=== PATIENT | female | born 1940 | race Caucasian/White ===

== ENCOUNTER 2022-04-26 13:58 | Outpatient (REF) | payer MEDICARE, SELFPAY ==
--- NOTE | 2022-04-26 14:06 | ECG_ITS ---
Test Reason : Z13.9 Blood Pressure : / mmHG Vent. Rate : 120 BPM Atrial Rate : 120 BPM P-R Int : 160 ms QRS Dur : 072 ms QT Int : 316 ms P-R-T Axes : 082 058 072 degrees QTc Int : 446 ms Sinus tachycardia Biatrial enlargement Abnormal ECG When compared with ECG of 19-OCT-2005 16:17, Biatrial enlargement is now Present Heart rate has increased Referred By: Raz Martell Electronically Signed By:OLIVIA CHAVEZ
[2022-04-26 15:53] LABS: Thyroid Stimulating Hormone 1.21 uIU/mL (0.32-4.0)
[2022-04-26 16:26] LABS: Folate > 20.0 ng/mL (> or = 4.0); Vitamin B12 654 pg/mL (200-900)
== END 2022-04-26 13:59 | disposition home or self-care (01) ==
LOC: HO.LAB 13:58
PROVIDERS: PCP Internal Medicine; Visit Provider Internal Medicine
DX: E03.9 Hypothyroidism, unspecified (principal); R41.89 Other symptoms and signs involving cognitive functions and awareness; R00.0 Tachycardia, unspecified
CPT/HCPCS: 36415; 82607; 82746; 84443; 93005

== ENCOUNTER 2022-05-11 13:08 | Outpatient (REF) | payer MEDICARE, SELFPAY ==
--- NOTE | ~2022-05-11 | CT_ITS ---
EXAMINATION: CT HEAD WITHOUT CONTRAST CLINICAL INFORMATION: Other symptoms and signs involving cognitive function and awareness COMPARISON: None TECHNIQUE: Contiguous axial imaging was performed from the skull base to vertex without intravenous administration of contrast. This CT examination was performed using dose optimization techniques as appropriate, variously including the following: *Automated exposure control *Adjustment of mA and/or kV according to patient size (this includes techniques or standardized protocols for targeted exams where dose is matched to indication/reason for exam; i.e. extremities or head) *Use of iterative reconstruction technique DLP: 644 mGy-cm FINDINGS: There is no evidence of an extra-axial collection. There is no evidence of intra-axial or extra-axial hemorrhage. Ventricles and extra-axial CSF spaces are prominent suggestive of mild generalized atrophy. There is nonspecific periventricular white matter disease. No mass, mass effect or infarct is seen. Review of bone windows is normal. No skull fracture. Visualized paranasal sinuses, mastoid air cells and middle ears are clear. CT/CT head/brain wo IV con IMPRESSION: No acute findings. Mild generalized atrophy and nonspecific periventricular white matter disease.
== END 2022-05-11 13:09 | disposition home or self-care (01) ==
LOC: HO.CT 13:08
PROVIDERS: PCP Internal Medicine; Visit Provider Internal Medicine
DX: R41.89 Other symptoms and signs involving cognitive functions and awareness (principal); R90.82 White matter disease, unspecified; G31.89 Other specified degenerative diseases of nervous system
CPT/HCPCS: 70450

== ENCOUNTER 2022-06-25 10:28 | Inpatient (IN) | payer MEDICARE, SELFPAY ==
--- NOTE | ~2022-06-25 | CT_ITS ---
EXAMINATION: CT BRAIN AND CT CERVICAL SPINE WITHOUT CONTRAST. CLINICAL INFORMATION: Fall, head strike. COMPARISON: None TECHNIQUE: 5 mm thin axial and reformatted 2 mm thin sagittal and coronal images of brain were obtained. Subsequently axial 3 mm thin and reformatted 2 mm thin sagittal and coronal images of cervical spine were obtained. DLP [id number]. FINDINGS: Brain: There is no acute intra-axial, extra-axial bleed, masses or midline shift. There is no acute infarction in evolution. There is no edema. There is diffuse periventricular hypodensity in both cerebral hemispheres without mass effect. The lateral ventricles are symmetrical in size but enlarged. Bone windows reveal no calvarial abnormality. There is no scalp soft tissue abnormality. Bilateral paranasal sinuses and mastoid air cells are well-aerated. Cervical spine: There is normal cervical lordosis. The vertebral heights and alignment is normal. There is loss of C5-C6 disc height with mild ventral and posterior spondylosis. Minimal spondylosis seen at the C3 3-4 disc level as well. The craniovertebral junction and C1-C2 alignment is normal. There is no visible acute fracture, dislocation or subluxation seen. The prevertebral and paravertebral soft tissues are normal. The airway is widely patent. There is bilateral apical pleural thickening and parenchymal scarring. CT/CT head/brain wo IV con IMPRESSION: No acute intracranial process seen. No acute fracture, dislocation or subluxation cervical spine. There are degenerative disc changes with spondylosis C5-C6 disc level.
--- NOTE | ~2022-06-25 | XR_ITS ---
EXAMINATION: CHEST. LEFT HIP AND AP PELVIS. CLINICAL INFORMATION: Cough COMPARISON: None TECHNIQUE: Chest one view. Left hip and AP pelvis 3 views. FINDINGS: Chest: Both lungs are well-inflated but clear of acute process. Heart size and pulmonary vascularity is normal. No gross bony abnormality seen. AP pelvis and left hip: There is an impacted fracture with foreshortening left femoral neck. There is no dislocation. The right hip joint is normal. There is normal symmetry of SI joints. As the pelvic bones are normal. There is large amount of stool in colon. XR/XR chest 1V IMPRESSION: Slightly impacted fracture with foreshortening of left femoral neck. There is no dislocation. The right hip and rest of the pelvis is normal. Significant constipation.
--- NOTE | ~2022-06-25 | XR_ITS ---
EXAMINATION: XR PELVIS CLINICAL INFORMATION: Left hip hemiarthroplasty COMPARISON: Previous x-ray 06/25/2022 TECHNIQUE: AP view of the pelvis. FINDINGS: There is a new left hip hemiarthroplasty in satisfactory position. No fracture or dislocation. Bones of the pelvis are unremarkable. There is constipation. Postoperative changes to the soft tissues. XR/XR pelvis 1-2V IMPRESSION: Satisfactory appearance of left hip hemiarthroplasty.
--- NOTE | ~2022-06-25 | CT_ITS ---
EXAMINATION: CT BRAIN AND CT CERVICAL SPINE WITHOUT CONTRAST. CLINICAL INFORMATION: Fall, head strike. COMPARISON: None TECHNIQUE: 5 mm thin axial and reformatted 2 mm thin sagittal and coronal images of brain were obtained. Subsequently axial 3 mm thin and reformatted 2 mm thin sagittal and coronal images of cervical spine were obtained. DLP 854. FINDINGS: Brain: There is no acute intra-axial, extra-axial bleed, masses or midline shift. There is no acute infarction in evolution. There is no edema. There is diffuse periventricular hypodensity in both cerebral hemispheres without mass effect. The lateral ventricles are symmetrical in size but enlarged. Bone windows reveal no calvarial abnormality. There is no scalp soft tissue abnormality. Bilateral paranasal sinuses and mastoid air cells are well-aerated. Cervical spine: There is normal cervical lordosis. The vertebral heights and alignment is normal. There is loss of C5-C6 disc height with mild ventral and posterior spondylosis. Minimal spondylosis seen at the C3 3-4 disc level as well. The craniovertebral junction and C1-C2 alignment is normal. There is no visible acute fracture, dislocation or subluxation seen. The prevertebral and paravertebral soft tissues are normal. The airway is widely patent. There is bilateral apical pleural thickening and parenchymal scarring. CT/CT cervical spine wo IV con IMPRESSION: No acute intracranial process seen. No acute fracture, dislocation or subluxation cervical spine. There are degenerative disc changes with spondylosis C5-C6 disc level.
--- NOTE | ~2022-06-25 | XR_ITS ---
EXAMINATION: CHEST. LEFT HIP AND AP PELVIS. CLINICAL INFORMATION: Cough COMPARISON: None TECHNIQUE: Chest one view. Left hip and AP pelvis 3 views. FINDINGS: Chest: Both lungs are well-inflated but clear of acute process. Heart size and pulmonary vascularity is normal. No gross bony abnormality seen. AP pelvis and left hip: There is an impacted fracture with foreshortening left femoral neck. There is no dislocation. The right hip joint is normal. There is normal symmetry of SI joints. As the pelvic bones are normal. There is large amount of stool in colon. XR/XR hip LT min 2V IMPRESSION: Slightly impacted fracture with foreshortening of left femoral neck. There is no dislocation. The right hip and rest of the pelvis is normal. Significant constipation.
--- NOTE | 2022-06-25 10:30 | ED.GENADULT ---
HPI - General Adult General Chief complaint: Fall Stated complaint: LT SIDE AND HIP PAIN S/P FALL,-COLLAR,-THINNERS Time Seen by Provider: 06/25/22 10:30 Source: patient, family and EMS Mode of arrival: EMS Limitations: other (mild dementia, information gathered w/ assistance from ) History of Present Illness HPI narrative: Pt is an 81 yo assigned female at presenting w/ left-sided hip pain after a fall this morning. She reports that she got up around 0815 this morning in a hurry to get to the bathroom when she bumped her left hip into her dresser and fell to the ground. She states that she was unable to get off the floor by herself. Her at bedside reports that he was able to help her up but was concerned that she was unable to respond to questions appropriately for approx 20 seconds following the incident. Pt states that she is unsure if she hit her head and endorsed mild pain in the area of the right orthodoxy. She denies use of anticoagulant medications. She reports that her primary concern at this time is the pain in her left hip due to which she is unable to ambulate. She points to the lateral hip as the area where most of the pain is located and denies radiation of pain or numbness/tingling to that extremity. Onset (ago): hour(s) (3) Location: lower extremity (left hip) Radiation: non-radiation Severity: mild Severity scale (1-10): 2 Quality: aching Pain Consistency: constant Relieving factors: none Exacerbating factors: movement Associated symptoms: denies other symptoms Treatments prior to arrival: none Related Data Home Medications Medication Instructions Recorded Confirmed donepezil 10 mg tablet 5 mg PO BEDTIME 06/25/22 06/25/22 Previous Rx's Medication Instructions Recorded hydrochlorothiazide 25 mg tablet 25 mg PO DAILY #90 tabs 09/23/21 amlodipine 10 mg tablet 10 mg PO DAILY #90 tabs 06/02/22 Allergies Allergy/AdvReac Type Severity Reaction Status Date / Time No Known Allergies Allergy Verified 04/26/22 13:05 Review of Systems Constitutional: Constitutional: Reports no additional constitutional complaints, Denies chills, Denies fever(s) and Denies headache(s) Eyes: Eyes: Reports no additional eye complaints, Denies blurry vision, Denies change in vision and Denies eye discharge ENT: Denies dizziness, Denies headache(s), Denies nasal trauma and Denies neck pain Cardiovascular: Cardiovascular: Reports no additional cardiovascular complaints, Denies chest pain, Denies lightheadedness, Denies Loss of Consciousness and Denies dyspnea Respiratory: Respiratory: Reports no additional respiratory complaints and Denies dyspnea Gastrointestinal: Gastrointestinal: Reports no additional gastrointestinal complaints and Denies abdominal pain Genitourinary: Genitourinary: Reports no additional female genitourinary complaints Musculoskeletal: Musculoskeletal: Reports no additional musculoskeletal complaints, Reports as per HPI (left hip pain), Denies neck pain, Denies numbness and Denies tingling Neurologic: Denies dizziness, Denies headache(s), Denies numbness and Denies tingling Psychiatric: Psychiatric: Reports no additional psychiatric complaints Endocrine: Endocrine: Reports no additional endocrine complaints Hematologic/Lymphatic: Hematologic/Lymphatic: Reports no additional hematologic/lymphatic complaints Allergic/Immunologic: Allergic/Immunologic: Reports no additional allergic/immunologic complaints [facility] Past Medical History Attestation statement: The following information was validated with the patient. Source: old records reviewed Medical History Hypertension Surgical History History of tonsillectomy History of total abdominal hysterectomy and bilateral salpingo-oophorectomy Family History Family History Father CAD (coronary artery disease) Mother No problems noted. Sister Breast cancer Maternal Grandmother No problems noted. Maternal Grandfather No problems noted. Paternal Grandmother No problems noted. Paternal Grandfather No problems noted. Social History Social History Housing: House Alcohol intake: never Patient Tobacco Use Status: Former Tobacco user Tobacco use type: Cigarette Smoked in Last 30 Days: No e-Cigarette/Vaping Use: Never Used Second Hand Smoke Exposure: No Use of substances other than those prescribed or required for medical reasons: No Advance Directives: Yes Advance Directives Information Provided: Yes Advance Directives on File: No service: No Current occupational status: retired Cognitive needs: No Hearing needs: No Vision needs: Yes (glasses) Physical Exam ED Vital Signs: Vital Signs - 24 hr 06/25/22 10:45 Temperature 97.9 F Pulse Rate 105 H Respiratory Rate 16 Blood Pressure 157/75 H Pulse Oximetry 97 Oxygen Delivery Method Room Air BMI result Body Mass Index 16.2 Const General: cooperative and comfortable Limitations: other limitations (mild dementia, info gathered w/ assistance from ) [facility] Head: Yes normal to inspection, Yes No palpable skull fracture present, Yes normocephalic, Yes atraumatic, No abrasion, No Swain's sign, No contusion, No hematoma, No laceration, No occipital foramen tenderness, No raccoon eyes and No Temporal artery tenderness present Ears: hearing grossly normal bilaterally and external ears normal (no discharge noted bilaterally) General nose exam: Normal external nose present Eyes General: appearance normal, both eyes and all related structures Conjunctivae: conjunctivae normal Pupils: Equal, round and reactive pupils present Neck Neck: Yes normal visual inspection and No tracheal deviation Chest Chest palpation & inspection: normal inspection of the chest, no crepitus and no tenderness Resp Effort & Inspection: normal respiratory effort, able to speak in complete sentences and not tachypneic Auscultation: clear to auscultation bilaterally, no crackles, no rales, no rhonchi, no wheezes, breath sounds present and lung sounds not diminished Percussion: no hyperresonance to percussion Cardio Rate: regular rate Rhythm: regular rhythm Heart sounds: S1 normal heart sound present and S2 normal heart sound present Peripheral pulses: Peripheral pulses 2+ throughout GI Inspection: Yes normal to inspection Palpation (GI): Soft to palpation, not firm, nontender, no guarding and not rigid Back/Spine/Pelvis Cervical Spine: No Cervical spine tenderness Thoracic/Lumbar Spine: thoracic and lumbar spine normal to inspection and No thoracic spinal tenderness Skin General skin exam: no rashes or lesions noted Neuro Cranial nerves: Yes Equal, round and reactive pupils present Extrem General: Yes normal to inspection and Yes no pedal edema Right upper extremity: normal to inspection Left upper extremity: normal to inspection Right lower extremity: normal to inspection and full ROM; no edema Left lower extremity: normal to inspection and hip/thigh Details: normal to inspection and tenderness (over lateral hio ); no swelling, no abrasions, no lacerations, no ecchymosis, no crepitus, no penetrating wound, no deformity and no unusual warmth; abnormal ROM (limited active ROM secondary to pain, passive ROM intake), no cyanosis and no edema Medications Administered Discontinued Medications Generic Name Dose Route Start Last Admin Trade Name Jermain PRN Reason Stop Dose Admin Fentanyl 25 mcg 06/25/22 11:58 06/25/22 12:20 Fentanyl Citrate/Pf 100 Mcg/2 Ml Vial IVPUSH 06/25/22 11:59 25 mcg ONCE ONE Administration Protocol Medical Decision Making MDM Narrative Medical decision making narrative: Patient is an 81 year old assigned female at with a history of HTN and dementia presenting to the emergency department today with left hip pain. Patient's physical exam showed pain with ROM of the left hip. Patient's blood work showed a slightly elevated WBC count but was otherwise unremarkable. Patient's head and C-Spine CTs showed no acute process. Patient's left hip x-ray showed an acute left hip fracture. I spoke to the orthopedic provider investigation specialist who recommended medical admission. I spoke to the hospitalist team who agreed to admission. I explained my physical exam findings as well as all test results to the patient, the patient's , and the patient's daughter. I answered all questions asked by the patient, the patient's , and the patient's daughter. Patient, the patient's , and the patient's daughter verbalized agreement and understanding with this treatment plan and admission. Medical Records Medical records reviewed: Yes I reviewed the patient's medical records. Lab Data Lab results reviewed: Yes I reviewed the patient's lab results. Result diagrams: 06/25/22 12:20 06/25/22 12:20 Labs: Lab Results 06/25/22 06/25/22 06/25/22 Range/Units 12:20 12:20 12:20 WBC 12.4 H (4.8-10.8) X10*3/uL RBC 3.86 L (4.20-5.50) X10*6/uL Hgb 10.5 L (12.0-16.0) g/dl Hct 31.4 L (37.0-47.0) % MCV 81.3 (80.0-98.0) fL MCH 27.2 (27.0-33.0) pg MCHC 33.4 (31.0-35.0) g/dl RDW 12.7 (11.0-16.0) % Plt Count 408 H (160-400) X10*3/uL MPV 11.3 (9.4-12.3) fL Immature Gran % (Auto) 0.6 H (0.0-0.4) % Neut % (Auto) 86.2 H (45-73) % Lymph % (Auto) 4.8 L (20-40) % Talbot % (Auto) 7.6 (2-11) % Eos % (Auto) 0.6 (0-4) % Baso % (Auto) 0.2 (0-2) % Lymph # (Auto) 0.6 L (1.2-4.9) X10*3/uL Talbot # (Auto) 1.0 (0.1-1.2) X10*3/uL Eos # (Auto) 0.1 (0.0-0.4) X10*3/uL Baso # (Auto) 0.0 (0.0-0.2) X10*3/uL Abs Immat Gran (auto) 0.07 H (0.00-0.03) X10*3/uL Absolute Neuts (auto) 10.7 H (2.0-8.3) x10*3/uL Absolute Nucleated RBC 0.000 (0.0-0.012) X10*3/uL Nucleated RBC % (auto) 0.0 (0.0-0.2) /100WBC PT 11.9 (10.0-13.1) SEC INR 1.0 (0.9-1.1) APTT 26.2 (26.0-36.4) SEC Sodium 136 (135-145) mmol/L Potassium 3.0 L (3.3-5.1) mmol/L Chloride 88 L (96-108) mmol/L Carbon Dioxide 29 (22-29) mmol/L Anion Gap 22 H (12-20) BUN 25 H (9-16) mg/dL Creatinine 1.06 (0.5-1.4) mg/dL Estim Creat Clear Calc 24.7 Estimated GFR 50 Random Glucose 111 (60-115) mg/dL Calcium 10.1 (8.4-10.2) mg/dL Total Bilirubin 0.4 (0.0-1.0) mg/dL AST 23 (5-31) U/L ALT 25 (0-31) U/L Alkaline Phosphatase 78 (39-117) U/L Total Protein 7.2 (6.5-8.0) g/dL Albumin 4.3 (3.5-5.0) g/dL COVID-19 (JULIUS) (Negative) COVID-19 Clin Com 06/25/22 Range/Units 12:40 WBC (4.8-10.8) X10*3/uL RBC (4.20-5.50) X10*6/uL Hgb (12.0-16.0) g/dl Hct (37.0-47.0) % MCV (80.0-98.0) fL MCH (27.0-33.0) pg MCHC (31.0-35.0) g/dl RDW (11.0-16.0) % Plt Count (160-400) X10*3/uL MPV (9.4-12.3) fL Immature Gran % (Auto) (0.0-0.4) % Neut % (Auto) (45-73) % Lymph % (Auto) (20-40) % Talbot % (Auto) (2-11) % Eos % (Auto) (0-4) % Baso % (Auto) (0-2) % Lymph # (Auto) (1.2-4.9) X10*3/uL Talbot # (Auto) (0.1-1.2) X10*3/uL Eos # (Auto) (0.0-0.4) X10*3/uL Baso # (Auto) (0.0-0.2) X10*3/uL Abs Immat Gran (auto) (0.00-0.03) X10*3/uL Absolute Neuts (auto) (2.0-8.3) x10*3/uL Absolute Nucleated RBC (0.0-0.012) X10*3/uL Nucleated RBC % (auto) (0.0-0.2) /100WBC PT (10.0-13.1) SEC INR (0.9-1.1) APTT (26.0-36.4) SEC Sodium (135-145) mmol/L Potassium (3.3-5.1) mmol/L Chloride (96-108) mmol/L Carbon Dioxide (22-29) mmol/L Anion Gap (12-20) BUN (9-16) mg/dL Creatinine (0.5-1.4) mg/dL Estim Creat Clear Calc Estimated GFR Random Glucose (60-115) mg/dL Calcium (8.4-10.2) mg/dL Total Bilirubin (0.0-1.0) mg/dL AST (5-31) U/L ALT (0-31) U/L Alkaline Phosphatase (39-117) U/L Total Protein (6.5-8.0) g/dL Albumin (3.5-5.0) g/dL COVID-19 (JULIUS) Negative (Negative) COVID-19 Clin Com See Note Imaging Data Left hip x-ray: Attestation: I personally reviewed and interpreted this imaging study as follows: My impression: No acute process. Radiologist's impression: EXAMINATION: CHEST. LEFT HIP AND AP PELVIS. CLINICAL INFORMATION: Cough? COMPARISON: None? TECHNIQUE: Chest one view. Left hip and AP pelvis 3 views.? FINDINGS: Chest: Both lungs are well-inflated but clear of acute process. Heart size and pulmonary vascularity is normal. No gross bony abnormality seen. AP pelvis and left hip: There is an impacted fracture with foreshortening left femoral neck. There is no dislocation. The right hip joint is normal. There is normal symmetry of SI joints. As the pelvic bones are normal. There is large amount of stool in colon. XR/XR hip LT min 2V IMPRESSION: Slightly impacted fracture with foreshortening of left femoral neck. There is no dislocation. ? The right hip and rest of the pelvis is normal. ? Significant constipation. Dictated By: Michael Altamirano MD Signed By: Electronically signed by Michael Altamirano MD 06/25/22 6896 Chest x-ray: Attestation: I personally reviewed and interpreted this imaging study as follows: My impression: No acute process. Radiologist's impression: EXAMINATION: CHEST. LEFT HIP AND AP PELVIS. CLINICAL INFORMATION: Cough? COMPARISON: None? TECHNIQUE: Chest one view. Left hip and AP pelvis 3 views.? FINDINGS: Chest: Both lungs are well-inflated but clear of acute process. Heart size and pulmonary vascularity is normal. No gross bony abnormality seen. AP pelvis and left hip: There is an impacted fracture with foreshortening left femoral neck. There is no dislocation. The right hip joint is normal. There is normal symmetry of SI joints. As the pelvic bones are normal. There is large amount of stool in colon. XR/XR chest 1V IMPRESSION: Slightly impacted fracture with foreshortening of left femoral neck. There is no dislocation. ? The right hip and rest of the pelvis is normal. ? Significant constipation. Dictated By: Michael Altamiraon MD Signed By: Electronically signed by Michael Altamirano MD 06/25/[address] head and C-Spine: Attestation: I personally reviewed and interpreted this imaging study as follows: My impression: No acute process. Radiologist's impression: EXAMINATION: CT BRAIN AND CT CERVICAL SPINE WITHOUT CONTRAST. CLINICAL INFORMATION: Fall, head strike.? COMPARISON: None? TECHNIQUE: 5 mm thin axial and reformatted 2 mm thin sagittal and coronal images of brain were obtained. Subsequently axial 3 mm thin and reformatted 2 mm thin sagittal and coronal images of cervical spine were obtained. DLP 854. FINDINGS: Brain: There is no acute intra-axial, extra-axial bleed, masses or midline shift. There is no acute infarction in evolution. There is no edema. There is diffuse periventricular hypodensity in both cerebral hemispheres without mass effect. The lateral ventricles are symmetrical in size but enlarged. Bone windows reveal no calvarial abnormality. There is no scalp soft tissue abnormality. Bilateral paranasal sinuses and mastoid air cells are well-aerated. Cervical spine: There is normal cervical lordosis. The vertebral heights and alignment is normal. There is loss of C5-C6 disc height with mild ventral and posterior spondylosis. Minimal spondylosis seen at the C3 3-4 disc level as well. The craniovertebral junction and C1-C2 alignment is normal. There is no visible acute fracture, dislocation or subluxation seen. The prevertebral and paravertebral soft tissues are normal. The airway is widely patent. There is bilateral apical pleural thickening and parenchymal scarring. CT/CT head/brain wo IV con IMPRESSION: No acute intracranial process seen. ? No acute fracture, dislocation or subluxation cervical spine. There are degenerative disc changes with spondylosis C5-C6 disc level. Dictated By: Michael Alatmirano MD Signed By: Electronically signed by Michael Altamirano MD 06/25/22 2187 Discharge Plan Discharge Clinical Impression: Fracture of left hip Patient Disposition: Admitted As Inpatient
[2022-06-25 10:35] VITALS: BP 164/78; PULSE 102; O2SAT 99
[2022-06-25 10:45] VITALS: BP 157/75; PULSE 105; RESP 16; TEMP 36.6; O2SAT 97; BMI 16.2
--- NOTE | 2022-06-25 11:55 | PC.NURSE ---
ATTEMPT TO PLACE PATIENT ON FRACTURE HSU TO VOID, SHE IS UNABLE TO TOLERATE THE MOVEMENT OR PRESSURE OF THE HSU UNDER HER LEFT HIP. IV ACCESS GAINED.
[2022-06-25] MEDS: fentaNYL citrate/PF 100 MCG/2 ML VIAL 25 MCG IVPUSH (12:20)
[2022-06-25 12:25] LABS: MANUAL DIFF FLAG NO
[2022-06-25 12:27] LABS: Basophils Percent Auto 0.2 % (0-2); Eosinophils Absolute Auto 0.1 X10*3/uL (0.0-0.4); Eosinophils Percent Auto 0.6 % (0-4); Hematocrit 31.4 % (37.0-47.0); Hemoglobin 10.5 g/dl (12.0-16.0); Imm Gran Abs Auto 0.07 X10*3/uL (0.00-0.03); Imm Gran Pct Auto 0.6 % (0.0-0.4); Lymphocytes Absolute Auto 0.6 X10*3/uL (1.2-4.9); Lymphocytes Percent Auto 4.8 % (20-40); Mean Corpuscular HGB Conc 33.4 g/dl (31.0-35.0); Mean Corpuscular Hemoglobin 27.2 pg (27.0-33.0); Mean Corpuscular Volume 81.3 fL (80.0-98.0); Mean Platelet Volume 11.3 fL (9.4-12.3); Monocytes Percent Auto 7.6 % (2-11); Neutrophils Absolute Auto 10.7 x10*3/uL (2.0-8.3); Neutrophils Percent Auto 86.2 % (45-73); Platelet Count 408 X10*3/uL (160-400); Red Blood Count 3.86 X10*6/uL (4.20-5.50); Red Cell Distribution Width 12.7 % (11.0-16.0); White Blood Count 12.4 X10*3/uL (4.8-10.8)
[2022-06-25 12:32] LABS: Prothrombin Time 11.9 SEC (10.0-13.1)
[2022-06-25 12:35] LABS: Partial Thromboplastin Time 26.2 SEC (26.0-36.4)
--- NOTE | 2022-06-25 12:47 | P.HPHOSP_ITS ---
History of Present Illness Date of Service: 06/25/22 Chief Complaint: Hip pain 81-year-old woman presented to the ER after a fall in the bathroom. According to the patient's daughter she had a fall and may have hit her head on the side of the bathtub. She was unable to get up. EMS was called. She lives with her who is her primary caregiver, she does have dementia. Hip x-ray in the ER showed slightly impacted fracture of the left femoral neck with no dislocation. Potassium noted to be 3.0, blood pressure mildly elevated at 150 7/75 with tachycardia. She denied chest pain, shortness breath, nausea, vomiting, diarrhea. She will be admitted for further management and treatment of acute hip fracture. Review of Systems Review of Systems: Denies any recent fever chills or decrease in appetite respiratory denies any shortness of breath coverage production cardiovasculardenied chest pain gastrointestinal denies any dysphagia abdominal pain nausea vomiting or diarrhea genitourinary denies any dysuria frequency or hematuria musculoskeletal denies any joint pain or swelling neuropsych denies any weakness or seizures all other systems reviewed are negative [facility] Medical History Hypertension Family History (Updated 06/25/22 @ 14:32 by Hilaria Goldman NP) Father CAD (coronary artery disease) Mother No problems noted. Sister Breast cancer Maternal Grandmother No problems noted. Maternal Grandfather No problems noted. Paternal Grandmother No problems noted. Paternal Grandfather No problems noted. Surgical History History of tonsillectomy History of total abdominal hysterectomy and bilateral salpingo-oophorectomy Social History Housing: House Alcohol intake: never Patient Tobacco Use Status: Former Tobacco user Tobacco use type: Cigarette Smoked in Last 30 Days: No e-Cigarette/Vaping Use: Never Used Second Hand Smoke Exposure: No Use of substances other than those prescribed or required for medical reasons: No Advance Directives: Yes Advance Directives Information Provided: Yes Advance Directives on File: No service: No Current occupational status: retired Cognitive needs: No Hearing needs: No Vision needs: Yes (glasses) Meds Allergies Allergy/AdvReac Type Severity Reaction Status Date / Time No Known Allergies Allergy Verified 04/26/22 13:05 Active Medications: Current Medications Pharmacy Consult (Consult Rx Perform Med Rec) 1 each MISCELLANE ONCE PRN PRN Reason: Consult order Home Medications Medication Instructions Recorded Confirmed Last Taken Type donepezil 10 mg tablet 5 mg PO BEDTIME 06/25/22 06/25/22 06/24/22 History Physical Exam Vital Signs and Narrative: Vital Signs: Last Vital Signs Temp 97.9 F 06/25/22 10:45 Pulse 105 H 06/25/22 10:45 Resp 16 06/25/22 10:45 BP 157/75 H 06/25/22 10:45 Pulse Ox 97 06/25/22 10:45 O2 Del Method 06/25/22 10:45 BMI result Body Mass Index 16.2 Appearing in no acute distress head is normocephalic atraumatic eyes pupils are PERRLA sclera is anicteric mouth throat mucous membranes are intact and moist neck is supple no lymphadenopathy, no JVD noted lung sounds are clear to auscultation heart regular rate rhythm, clear S1, S2 positive bowel sounds, abdomen is soft, nontender neuro patient is alert x3, no focal deficits Results Labs CBC and Chem 7: 06/25/22 12:20 06/25/22 12:20 Labs: Laboratory Results - last 24 hr 06/25/22 06/25/22 12:20 12:20 MCV 81.3 MCH 27.2 MCHC 33.4 RDW 12.7 Plt Count 408 H MPV 11.3 Immature Gran % (Auto) 0.6 H Neut % (Auto) 86.2 H Lymph % (Auto) 4.8 L Hodgeman % (Auto) 7.6 Eos % (Auto) 0.6 Baso % (Auto) 0.2 Lymph # (Auto) 0.6 L Hodgeman # (Auto) 1.0 Eos # (Auto) 0.1 Baso # (Auto) 0.0 Abs Immat Gran (auto) 0.07 H Absolute Neuts (auto) 10.7 H Absolute Nucleated RBC 0.000 Nucleated RBC % (auto) 0.0 PT 11.9 INR 1.0 APTT 26.2 Imaging Radiologist's Impressions: Impressions Cervical Spine CT 06/25/22 11:15 IMPRESSION: No acute intracranial process seen. No acute fracture, dislocation or subluxation cervical spine. There are degenerative disc changes with spondylosis C5-C6 disc level. Head CT 06/25/22 11:15 IMPRESSION: No acute intracranial process seen. No acute fracture, dislocation or subluxation cervical spine. There are degenerative disc changes with spondylosis C5-C6 disc level. Chest X-Ray 06/25/22 12:17 IMPRESSION: Slightly impacted fracture with foreshortening of left femoral neck. There is no dislocation. The right hip and rest of the pelvis is normal. Significant constipation. Hip X-Ray 06/25/22 12:17 IMPRESSION: Slightly impacted fracture with foreshortening of left femoral neck. There is no dislocation. The right hip and rest of the pelvis is normal. Significant constipation. Assessment and Plan (1) Fracture of left hip: Status: Acute Plan 81 year old women admitted with Right hip fracture Left femoral neck fracture Orthopedic surgery consultation Pain management NPO after midnight monday night for surgery Monday Hypertension Continue home medications Monitor blood pressure closely Leukocytosis likely reactive, no infection Normocytic anemia no bleeding follow CBC DVT prophylaxis with pneumatic compression boots Attending Dr. Willis Full code Quality Stroke Does the patient have a stroke diagnosis?: No VTE Prior VTE?: No VTE Risk Level:: Medical - moderate - high VTE Device Contraindication: N/A - Device Ordered VTE Drug Contraindication: Treatment Not Indicated
[2022-06-25 13:11] LABS: COVID-19 Test Negative (Negative); IDNOW Serial# 55D5AD1C
--- NOTE | 2022-06-25 13:32 | PHA.MEDREC ---
Pharmacy Consult ? Medication Reconciliation Pharmacy has completed the medication reconciliation. Patient is not able to confirm medications but has med list on his phone and was able to review them with me and ensure that the list was accurate.
[2022-06-25 14:21] LABS: Alanine Aminotransferase 25 U/L (0-31); Albumin Level 4.3 g/dL (3.5-5.0); Alkaline Phosphatase 78 U/L (39-117); Anion Gap 22 (12-20); Aspartate Amino Transferase 23 U/L (5-31); Bilirubin Total 0.4 mg/dL (0.0-1.0); Blood Urea Nitrogen 25 mg/dL (9-16); Calcium 10.1 mg/dL (8.4-10.2); Carbon Dioxide 29 mmol/L (22-29); Chloride 88 mmol/L (96-108); Creatinine Clr Calc Pharmacy 24.7; Estimated Glomerular Filt Rate 50; Glucose Random 111 mg/dL (60-115); Sodium 136 mmol/L (135-145); Total Protein 7.2 g/dL (6.5-8.0)
[2022-06-25 15:34] VITALS: BP 163/67; PULSE 119; RESP 16; TEMP 36.8; O2SAT 96
[2022-06-25] MEDS: fentaNYL citrate/PF 100 MCG/2 ML VIAL 50 MCG IVPUSH (15:45)
[2022-06-25 16:02] LABS: Appearance Urine Clear; Color Urine Yellow; Glucose Urine UA 100 mg/dL (Negative); Leukocyte Esterase Urine Trace (Negative); Nitrite Urine Negative (Negative); Specific Gravity - Urine 1.015 (1.005-1.025); UMIC TRIGGER UA YES; Urine Blood Negative (Negative); Urine Ketones 40 mg/dL (Negative); Urine Protein 30 (1+) mg/dL (Neg-Trace)
[2022-06-25 16:06] LABS: Bacteria Urine None Seen (None Seen); Hyaline Casts Urine 0-2 /LPF (0-2); Squamous Epithelial Cell Urine 0-2 /HPF (0-2); WBC Urine 0-5 /HPF (0-5)
[2022-06-25] MEDS: Acetaminophen 325 MG TABLET 650 MG PO (16:51)
[2022-06-25] MEDS: 0.9 % Sodium Chloride Flush 3 ML SYRINGE IVFLUSH (16:52)
--- NOTE | 2022-06-25 17:31 | PM.CNOR ---
History of Present Illness HPI Consult date: 06/25/22 Chief complaint: hip fracture Narrative: 81-year-old woman presented to the ER after a fall in the bathroom earlier today.? According to the patient's daughter she had a fall and may have hit her head on the side of the bathtub.? She was unable to get up.? EMS was called.? She lives with her who is her primary caregiver, she does have dementia.?Daughter and Husabnd are at bedside today who states she does not use a walker or cane, but the does help her around when needed. Xrays obtained in the ED significant for mildly displaced femoral neck fracture on the left. Potassium noted to be 3.0, blood pressure mildly elevated at 150 7/75 with tachycardia.? She was admitted to the medical service for further evaluation and orthopedics was consulted for further recommendations. Review of Systems Review of Systems: Per [facility] Past Medical History Medical History Hypertension Family History Family History Father CAD (coronary artery disease) Mother No problems noted. Sister Breast cancer Maternal Grandmother No problems noted. Maternal Grandfather No problems noted. Paternal Grandmother No problems noted. Paternal Grandfather No problems noted. Surgical History Surgical History History of tonsillectomy History of total abdominal hysterectomy and bilateral salpingo-oophorectomy Social History Social History Housing: House Alcohol intake: never Patient Tobacco Use Status: Former Tobacco user Tobacco use type: Cigarette Smoked in Last 30 Days: No e-Cigarette/Vaping Use: Never Used Second Hand Smoke Exposure: No Use of substances other than those prescribed or required for medical reasons: No Advance Directives: Yes Advance Directives Information Provided: Yes Advance Directives on File: No service: No Current occupational status: retired Cognitive needs: No Hearing needs: No Vision needs: Yes (glasses) Meds Allergies Allergy/AdvReac Type Severity Reaction Status Date / Time No Known Allergies Allergy Verified 04/26/22 13:05 Active Medications: Current Medications Acetaminophen (Acetaminophen 325 Mg Tablet) 650 mg PO Q6H [facility] Last Admin: 06/25/22 16:51 Dose: 650 mg Acetaminophen (Acetaminophen 325 Mg Tablet) 650 mg PO Q6H PRN PRN Reason: Pain, Mild (Pain Scale 1-3) Amlodipine Besylate (Amlodipine Besylate 10 Mg Tablet) 10 mg PO DAILY [facility]; Protocol Donepezil HCl (Donepezil Hcl 5 Mg Tablet) 5 mg PO BEDTIME [facility] Hydrochlorothiazide (Hydrochlorothiazide 25 Mg Tablet) 25 mg PO DAILY [facility]; Protocol Morphine Sulfate (Morphine Sulfate 2 Mg/Ml Cartridge) 2 mg IVPUSH Q4H PRN; Protocol PRN Reason: Pain, Mild (Pain Scale 1-3) Oxycodone HCl (Oxycodone Hcl Immed Release 5 Mg Tablet) 5 mg PO Q6H PRN PRN Reason: Pain, Mild (Pain Scale 1-3) Pharmacy Consult (Consult Rx Perform Med Rec) 1 each MISCELLANE ONCE PRN PRN Reason: Consult order Sodium Chloride (0.9 % Sodium Chloride Flush 3 Ml Syringe) [facility] Last Admin: 06/25/22 16:52 Dose: 3 ml Home Medications Medication Instructions Recorded Confirmed Last Taken Type donepezil 10 mg tablet 5 mg PO BEDTIME 06/25/22 06/25/22 06/24/22 History Physical Exam Vital Signs: Vital Signs: Last Vital Signs Temp 98.3 F 06/25/22 15:34 Pulse 119 H 06/25/22 15:34 Resp 16 06/25/22 15:34 BP 163/67 H 06/25/22 15:34 Pulse Ox 96 06/25/22 15:34 O2 Del Method 06/25/22 15:34 BMI result Body Mass Index 16.2 Const: General: cooperative, healthy appearing and comfortable Extrem: Other: Left hip normal to inspection. No open wounds or lacerations. Left leg is externally rotated and shortened. Pain with Log roll, unable to SLR. She is able to dorsi flex and plantar flex. NVI. Results Labs Result Diagrams: 06/25/22 12:20 06/25/22 12:20 Labs: Abnormal lab results 06/25/22 06/25/22 06/25/22 Range/Units 12:20 12:20 15:51 WBC 12.4 H (4.8-10.8) X10*3/uL RBC 3.86 L (4.20-5.50) X10*6/uL Hgb 10.5 L (12.0-16.0) g/dl Hct 31.4 L (37.0-47.0) % Plt Count 408 H (160-400) X10*3/uL Immature Gran % (Auto) 0.6 H (0.0-0.4) % Neut % (Auto) 86.2 H (45-73) % Lymph % (Auto) 4.8 L (20-40) % Lymph # (Auto) 0.6 L (1.2-4.9) X10*3/uL Abs Immat Gran (auto) 0.07 H (0.00-0.03) X10*3/uL Absolute Neuts (auto) 10.7 H (2.0-8.3) x10*3/uL Potassium 3.0 L (3.3-5.1) mmol/L Chloride 88 L (96-108) mmol/L Anion Gap 22 H (12-20) BUN 25 H (9-16) mg/dL Urine Protein 30 (1+) H (Neg-Trace) mg/dL Urine Glucose (UA) 100 H (Negative) mg/dL Ur Leukocyte Esterase Trace H (Negative) Urine RBC 3-5 H (0-2) /HPF H & H 06/25/ Range/Units 12:20 Hgb 10.5 L (12.0-16.0) g/dl Hct 31.4 L (37.0-47.0) % Coagulation 06/25/22 Range/Units 12:20 INR 1.0 (0.9-1.1) All other labs normal. Diagnostic results Hip x-ray: image reviewed (Slightly impacted fracture with foreshortening of left femoral neck.) Assessment and Plan (1) Left displaced femoral neck fracture: Status: Acute Plan I discussed the case with Dr Fall and explained the extent of the injury to the patient, her , and her daughter Lizz, along with the options available which include surgical intervention. I explained the procedure in detail along with the length of recovery and rehab course. I explained the risk, benefits and alternatives. Risk including, but not limited to infection, blood clots, bleeding, non union or malunion and nerve/tissue damage to surrounding areas. I answered all their questions and with their understanding they have consented to move forward with Operative Fixation of the left hip . The patient will be T&S, med clearance obtained and NPO after midnight. HCP/: Vijay [phone] Cell Phone Procedures Date of Service Date of Service: 06/25/22
--- NOTE | 2022-06-25 17:41 | PC.NURSE ---
PT BECOMING MORE CONFUSED AND PULLING ON WIRES. HER FAMILY HAS LEFT THE BEDSIDE AND SHE REQUIRES FREQUENT RE-ORIENTATION
--- NOTE | 2022-06-25 17:48 | PC.NURSE ---
placed an [employer] Camera on pt.
--- NOTE | 2022-06-25 19:58 | PC.NURSE ---
Assumed care for pt. Pt alert not oriented. Breaths are even and unlabored. No apparent distress noted. Daughters at bedside aware of plan of care.
[2022-06-25] MEDS: Donepezil HCl 5 MG TABLET PO (21:02)
[2022-06-25] MEDS: Morphine Sulfate 2 MG/ML CARTRIDGE IVPUSH (22:46)
[2022-06-26] VITALS (13 sets, daily range): BP systolic 135–167; BP diastolic 66–80; PULSE 89–123; RESP 13–20; TEMP 36.5–38.1; O2SAT 93–100; BMI 16.2
--- NOTE | 2022-06-26 | ECG_ITS ---
Test Reason : TACHY Blood Pressure : / mmHG Vent. Rate : 114 BPM Atrial Rate : 114 BPM P-R Int : 170 ms QRS Dur : 076 ms QT Int : 332 ms P-R-T Axes : 071 053 061 degrees QTc Int : 457 ms Sinus tachycardia Otherwise normal ECG When compared with ECG of 26-APR-2022 14:08, No significant change was found Referred By: Hilaria Goldman Electronically Signed By:WISAM STEVENSON MD
--- NOTE | 2022-06-26 00:37 | PC.NURSE ---
Pt repositioned in bed .PT given warm blankets and call hope placed in reach.
[2022-06-26] MEDS: 0.9 % Sodium Chloride Flush 3 ML SYRINGE IVFLUSH ×3 (00:45→22:35)
--- NOTE | 2022-06-26 01:38 | PC.NURSE ---
Pt restless, pulling at the hurtado cath, and trying to climb out of bed. Sitter currently at the bedside for pts safety. MD aware via tiger text.
[2022-06-26] MEDS: OLANZapine 10 MG VIAL 5 MG IM (01:53)
[2022-06-26] MEDS: Morphine Sulfate 2 MG/ML CARTRIDGE IVPUSH ×2 (04:05→15:23)
[2022-06-26] MEDS: Acetaminophen 325 MG TABLET 650 MG PO ×2 (04:05→16:32)
--- NOTE | 2022-06-26 04:37 | PC.NURSE ---
RN to RN report given to URMILA Hogue
[2022-06-26 06:42] LABS: MANUAL DIFF FLAG NO
[2022-06-26 06:47] LABS: Basophils Percent Auto 0.2 % (0-2); Eosinophils Percent Auto 0.1 % (0-4); Hematocrit 32.9 % (37.0-47.0); Hemoglobin 10.8 g/dl (12.0-16.0); Imm Gran Abs Auto 0.06 X10*3/uL (0.00-0.03); Imm Gran Pct Auto 0.5 % (0.0-0.4); Lymphocytes Absolute Auto 0.4 X10*3/uL (1.2-4.9); Lymphocytes Percent Auto 3.7 % (20-40); Mean Corpuscular HGB Conc 32.8 g/dl (31.0-35.0); Mean Corpuscular Hemoglobin 26.8 pg (27.0-33.0); Mean Corpuscular Volume 81.6 fL (80.0-98.0); Mean Platelet Volume 11.1 fL (9.4-12.3); Monocytes Absolute Auto 1.1 X10*3/uL (0.1-1.2); Monocytes Percent Auto 8.8 % (2-11); Neutrophils Absolute Auto 10.3 x10*3/uL (2.0-8.3); Neutrophils Percent Auto 86.7 % (45-73); Platelet Count 411 X10*3/uL (160-400); Red Blood Count 4.03 X10*6/uL (4.20-5.50); Red Cell Distribution Width 12.9 % (11.0-16.0); White Blood Count 11.9 X10*3/uL (4.8-10.8)
[2022-06-26 07:21] LABS: Anion Gap 19 (12-20); Blood Urea Nitrogen 28 mg/dL (9-16); Calcium 9.7 mg/dL (8.4-10.2); Carbon Dioxide 32 mmol/L (22-29); Chloride 88 mmol/L (96-108); Estimated Glomerular Filt Rate 55; Glucose Random 124 mg/dL (60-115); Potassium 2.9 mmol/L (3.3-5.1); Sodium 136 mmol/L (135-145)
[2022-06-26] MEDS: amLODIPine Besylate 10 MG TABLET PO (08:32)
[2022-06-26] MEDS: hydroCHLOROthiazide 25 MG TABLET PO (08:33)
--- NOTE | 2022-06-26 08:36 | HO.ANESPROP2 ---
HPI - Anesthesia Eval Consult details Narrative: left femoral fracture PMFSH Active Problems Active Problems: All Active Problems (Updated 06/25/22 @ 17:37 by Sally Arce PA-C) Hypokalemia Left displaced femoral neck fracture (Acute) Fracture of left hip (Acute) Cognitive decline (Acute) Physical exam (Acute) Hypertension (Acute) Past Medical History Medical History Hypertension Family History Family History Father CAD (coronary artery disease) Mother No problems noted. Sister Breast cancer Maternal Grandmother No problems noted. Maternal Grandfather No problems noted. Paternal Grandmother No problems noted. Paternal Grandfather No problems noted. Family history of problems with anesthesia: No Surgical History Surgical History History of tonsillectomy History of total abdominal hysterectomy and bilateral salpingo-oophorectomy History of Problems with Anesthesia: No Social History Social History Household Members: Spouse Housing: House Do you presently have visiting nurse or other home services: No Unable to assess alcohol history related to: Refusing to respond Alcohol intake: never Patient Tobacco Use Status: Tobacco use Unknown Tobacco use type: Cigarette e-Cigarette/Vaping Use: Never Used Second Hand Smoke Exposure: No Advance Directives Date on File: 06/26/22 service: No Current occupational status: retired Cognitive needs: No Hearing needs: No Vision needs: Yes (glasses) Meds Allergies Allergy/AdvReac Type Severity Reaction Status Date / Time No Known Allergies Allergy Verified 04/26/22 13:05 Active Medications: Current Medications Acetaminophen (Acetaminophen 325 Mg Tablet) 650 mg PO Q6H [facility] Last Admin: 06/26/22 04:05 Dose: 650 mg Acetaminophen (Acetaminophen 325 Mg Tablet) 650 mg PO Q6H PRN PRN Reason: Pain, Mild (Pain Scale 1-3) Amlodipine Besylate (Amlodipine Besylate 10 Mg Tablet) 10 mg PO DAILY [facility]; Protocol Donepezil HCl (Donepezil Hcl 5 Mg Tablet) 5 mg PO BEDTIME [facility] Last Admin: 06/25/22 21:02 Dose: 5 mg Hydrochlorothiazide (Hydrochlorothiazide 25 Mg Tablet) 25 mg PO DAILY [facility]; Protocol Morphine Sulfate (Morphine Sulfate 2 Mg/Ml Cartridge) 2 mg IVPUSH Q4H PRN; Protocol PRN Reason: Pain, Mild (Pain Scale 1-3) Last Admin: 06/26/22 04:05 Dose: 2 mg Oxycodone HCl (Oxycodone Hcl Immed Release 5 Mg Tablet) 5 mg PO Q6H PRN PRN Reason: Pain, Mild (Pain Scale 1-3) Pharmacy Consult (Consult Rx Perform Med Rec) 1 each MISCELLANE ONCE PRN PRN Reason: Consult order Potassium Chloride (Potassium Chloride Er 20 Meq Tab.Er.Prt) 20 meq PO DAILY [facility] Sodium Chloride (0.9 % Sodium Chloride Flush 3 Ml Syringe) 3 ml IVFLUSH QSHIFT [facility] Last Admin: 06/26/22 00:45 Dose: 3 ml Home Medications Medication Instructions Recorded Confirmed Last Taken Type donepezil 10 mg tablet 5 mg PO BEDTIME 06/25/22 06/25/22 06/24/22 History Exam Exam Date and Time: June 26, 2022 0836 Height,Weight and Vital Signs: Height 5 ft 1 in Weight 39 kg Last Vital Signs Temp 99.5 F 06/26/22 07:30 Pulse 123 H 06/26/22 07:30 Resp 20 06/26/22 07:30 BP 145/80 H 06/26/22 07:30 Pulse Ox 98 06/26/22 07:30 O2 Del Method 06/26/22 07:30 Pertinent Lab Results Pertinent Lab Results: Laboratory Tests 06/25/22 06/25/22 06/25/22 12:20 12:20 12:20 WBC 12.4 H RBC 3.86 L Hgb 10.5 L Hct 31.4 L MCV 81.3 MCH 27.2 MCHC 33.4 RDW 12.7 Plt Count 408 H MPV 11.3 Immature Gran % (Auto) 0.6 H Neut % (Auto) 86.2 H Lymph % (Auto) 4.8 L Hardy % (Auto) 7.6 Eos % (Auto) 0.6 Baso % (Auto) 0.2 Lymph # (Auto) 0.6 L Hardy # (Auto) 1.0 Eos # (Auto) 0.1 Baso # (Auto) 0.0 Abs Immat Gran (auto) 0.07 H Absolute Neuts (auto) 10.7 H Absolute Nucleated RBC 0.000 Nucleated RBC % (auto) 0.0 PT 11.9 INR 1.0 APTT 26.2 Sodium 136 Potassium 3.0 L Chloride 88 L Carbon Dioxide 29 Anion Gap 22 H BUN 25 H Creatinine 1.06 Estim Creat Clear Calc 24.7 Estimated GFR 50 Random Glucose 111 Calcium 10.1 Total Bilirubin 0.4 AST 23 ALT 25 Alkaline Phosphatase 78 Total Protein 7.2 Albumin 4.3 Urine Color Urine Appearance Urine pH Ur Specific [place] Urine Protein Urine Glucose (UA) Urine Ketones Urine Blood Urine Nitrite Ur Leukocyte Esterase Urine RBC Urine WBC Ur Squamous Epith Cells Urine Bacteria Hyaline Casts COVID-19 (JULUIS) COVID-19 Rawporter Com Blood Type Antibody Screen 06/25/22 06/25/22 06/25/22 12:40 15:51 19:21 WBC RBC Hgb Hct MCV MCH MCHC RDW Plt Count MPV Immature Gran % (Auto) Neut % (Auto) Lymph % (Auto) Hardy % (Auto) Eos % (Auto) Baso % (Auto) Lymph # (Auto) Hardy # (Auto) Eos # (Auto) Baso # (Auto) Abs Immat Gran (auto) Absolute Neuts (auto) Absolute Nucleated RBC Nucleated RBC % (auto) PT INR APTT Sodium Potassium Chloride Carbon Dioxide Anion Gap BUN Creatinine Estim Creat Clear Calc Estimated GFR Random Glucose Calcium Total Bilirubin AST ALT Alkaline Phosphatase Total Protein Albumin Urine Color Yellow Urine Appearance Clear Urine pH 8.0 Ur Specific [place] 1.015 Urine Protein 30 (1+) H Urine Glucose (UA) 100 H Urine Ketones 40 Urine Blood Negative Urine Nitrite Negative Ur Leukocyte Esterase Trace H Urine RBC 3-5 H Urine WBC 0-5 Ur Squamous Epith Cells 0-2 Urine Bacteria None Seen Hyaline Casts 0-2 COVID-19 (JULIUS) Negative COVID-19 Clin Com See Note Blood Type A Positive Antibody Screen NEGATIVE 06/26/22 06/26/22 06:11 06:11 WBC 11.9 H RBC 4.03 L Hgb 10.8 L Hct 32.9 L MCV 81.6 MCH 26.8 L MCHC 32.8 RDW 12.9 Plt Count 411 H MPV 11.1 Immature Gran % (Auto) 0.5 H Neut % (Auto) 86.7 H Lymph % (Auto) 3.7 L Hardy % (Auto) 8.8 Eos % (Auto) 0.1 Baso % (Auto) 0.2 Lymph # (Auto) 0.4 L Hardy # (Auto) 1.1 Eos # (Auto) 0.0 Baso # (Auto) 0.0 Abs Immat Gran (auto) 0.06 H Absolute Neuts (auto) 10.3 H Absolute Nucleated RBC 0.000 Nucleated RBC % (auto) 0.0 PT INR APTT Sodium 136 Potassium 2.9 L Chloride 88 L Carbon Dioxide 32 H Anion Gap 19 BUN 28 H Creatinine 0.97 Estim Creat Clear Calc 27.0 Estimated GFR 55 Random Glucose 124 H Calcium 9.7 Total Bilirubin AST ALT Alkaline Phosphatase Total Protein Albumin Urine Color Urine Appearance Urine pH Ur Specific [place] Urine Protein Urine Glucose (UA) Urine Ketones Urine Blood Urine Nitrite Ur Leukocyte Esterase Urine RBC Urine WBC Ur Squamous Epith Cells Urine Bacteria Hyaline Casts COVID-19 (JULIUS) COVID-19 Clin Com Blood Type Antibody Screen Airway Mallampati Class: II TM Dist: >3cm Neck ROM: Full Partial: Upper Heart: RRR, tachycardia Lungs: CTA Assessment and Plan Assessment Anesthesia Assessment: Anesthesia Plan Discussed and Chart Reviewed Final Anesthetic Review Family History of Problems with Anesthesia: No History of Problems with Anesthesia: No NPO: Yes ASA Class: III Final Preanesthetic Review: No Changes in Pt Med Stat, Meds/Allgs Chart Reviewed and Consent Obtained/Reviewed Patient Risk: Intermediate Procedure Risk: Intermediate Anesthetic Plan Anesthetic Plan: GA Disposition: Standard PACU
[2022-06-26] MEDS: Potassium Chloride ER 20 MEQ TAB.ER.PRT 40 MEQ PO (09:38)
--- NOTE | 2022-06-26 10:04 | MHC.SHP ---
Pre-Procedural Eval Section A Date of Service: 06/26/22 The patient is an INPATIENT: Yes Changes since office visit: No Cold of Flu in the past 2 weeks, No New Medical Problems, No Changes in Medication and No Patient answered all questions The History & Physical has been completed within 30 days and I have reviewed it.: Yes Section B Chief Complaint: hip fracture Allergies: Allergies Allergy/AdvReac Type Severity Reaction Status Date / Time No Known Allergies Allergy Verified 04/26/22 13:05 Plan I have reviewed the history and physical and performed a pertinent physical examination on my patient. No changes have occurred unless specified.
--- NOTE | 2022-06-26 10:50 | MHC.CM.PN ---
pt in or spoke with pts adolfo and ,adolfo is an rn that works at [employer], referral made pt had no servcies prior to admission ,explination made to family rew acute rehab vas snf snf choice is [facility] have asked for other choices family to get back to cm,pt is morena vax x 3
--- NOTE | 2022-06-26 11:07 | PC.NURSE ---
Pt had EKG ordered at 0830 today due to tachycardia. Upon assessment of the patient, she was asymptomatic with all other vital signs within her normal limits. EKG was performed and the results were given to the provider for interpretation. will continue to monitor.
--- NOTE | 2022-06-26 11:25 | P.BOP_ITS ---
Brief Operative Note Date of Service: 06/26/22 Pre-op diagnosis: left femoral neck fracture Post-op diagnosis: same Procedure: left hip alonzo Implants: [place] Accolage2 127 deg #4 with 13 bipolar Surgeon: Franco Fall MD Anesthesia: GETA and local Was an Wardrobe Mistress used for this Procedure?: Yes Wardrobe Mistress: Sally Arce Estimated blood loss (mL): 150 IV fluids (mL): 500 Pathology: other Condition: stable Disposition: PACU
--- NOTE | 2022-06-26 11:40 | MHC.CM.PN ---
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
--- NOTE | 2022-06-26 11:51 | HO.PM.IMPN ---
Subjective Subjective Date of Service: 06/26/22 Review of Systems Follow-up hip fracture History of dementia unable to give history Physical Exam Vital Signs: Vital Signs: Last Vital Signs Temp 99.2 F 06/26/22 11:44 Pulse 110 H 06/26/22 11:50 Resp 17 06/26/22 11:50 BP 135/69 06/26/22 11:50 Pulse Ox 100 06/26/22 11:50 O2 Del Method 06/26/22 11:50 O2 Flow Rate 4 06/26/22 11:50 BMI result Body Mass Index 16.2 Appearing in no acute distress lung sounds are clear to auscultation heart regular rate rhythm, clear S1, S2 positive bowel sounds, abdomen is soft, nontender neuro patient is alert, confused Left leg shortened and rotated Objective Data Active Medications Acetaminophen (Acetaminophen 325 Mg Tablet) 650 mg PO Q6H [facility] Last Admin: 06/26/22 10:46 Dose: Not Given Documented By: MARY Non-Admin Reason: Off Unit: Surgery Acetaminophen (Acetaminophen 325 Mg Tablet) 650 mg PO Q6H PRN PRN Reason: Pain, Mild (Pain Scale 1-3) Amlodipine Besylate (Amlodipine Besylate 10 Mg Tablet) 10 mg PO DAILY [facility]; Protocol Last Admin: 06/26/22 08:32 Dose: 10 mg Documented By: MARY Donepezil HCl (Donepezil Hcl 5 Mg Tablet) 5 mg PO BEDTIME [facility] Last Admin: 06/25/22 21:02 Dose: 5 mg Documented By: LANE Fentanyl (Fentanyl Citrate/Pf 100 Mcg/2 Ml Vial) 25 mcg IVPUSH Q5M PRN; Protocol PRN Reason: Pain, Moderate (Pain Scale 4-6 Hydrochlorothiazide (Hydrochlorothiazide 25 Mg Tablet) 25 mg PO DAILY [facility]; Protocol Last Admin: 06/26/22 08:33 Dose: 25 mg Documented By: MARY Morphine Sulfate (Morphine Sulfate 2 Mg/Ml Cartridge) 2 mg IVPUSH Q4H PRN; Protocol PRN Reason: Pain, Mild (Pain Scale 1-3) Last Admin: 06/26/22 04:05 Dose: 2 mg Documented By: RUBINA Morphine Sulfate (Morphine Sulfate 2 Mg/Ml Cartridge) 2 mg IVPUSH Q5M PRN; Protocol PRN Reason: Pain, Moderate (Pain Scale 4-6 Oxycodone HCl (Oxycodone Hcl Immed Release 5 Mg Tablet) 5 mg PO Q6H PRN PRN Reason: Pain, Mild (Pain Scale 1-3) Pharmacy Consult (Consult Rx Perform Med Rec) 1 each MISCELLANE ONCE PRN PRN Reason: Consult order Potassium Chloride (Potassium Chloride Er 20 Meq Tab.Er.Prt) 20 meq PO DAILY [facility] Sodium Chloride (0.9 % Sodium Chloride Flush 3 Ml Syringe) 3 ml IVFLUSH QSHIFT [facility] Last Admin: 06/26/22 10:46 Dose: Not Given Documented By: MARY Non-Admin Reason: Previously Administered Labs CBC & Chem 7: 06/26/22 06:11 06/26/22 06:11 Labs: Laboratory Results - last 24 hr 06/25/22 06/25/22 06/25/22 12:20 12:20 12:20 MCV 81.3 MCH 27.2 MCHC 33.4 RDW 12.7 Plt Count 408 H MPV 11.3 Immature Gran % (Auto) 0.6 H Neut % (Auto) 86.2 H Lymph % (Auto) 4.8 L Gilliam % (Auto) 7.6 Eos % (Auto) 0.6 Baso % (Auto) 0.2 Lymph # (Auto) 0.6 L Gilliam # (Auto) 1.0 Eos # (Auto) 0.1 Baso # (Auto) 0.0 Abs Immat Gran (auto) 0.07 H Absolute Neuts (auto) 10.7 H Absolute Nucleated RBC 0.000 Nucleated RBC % (auto) 0.0 PT 11.9 INR 1.0 APTT 26.2 Anion Gap 22 H Estim Creat Clear Calc 24.7 Estimated GFR 50 Random Glucose 111 Calcium 10.1 Total Bilirubin 0.4 AST 23 ALT 25 Alkaline Phosphatase 78 Total Protein 7.2 Albumin 4.3 Urine Color Urine Appearance Urine pH Ur Specific Emerson Urine Protein Urine Glucose (UA) Urine Ketones Urine Blood Urine Nitrite Ur Leukocyte Esterase Urine RBC Urine WBC Ur Squamous Epith Cells Urine Bacteria Hyaline Casts COVID-19 ([facility]) COVID-19 Clin Com Blood Type Antibody Screen 06/25/22 06/25/22 06/25/22 12:40 15:51 19:21 MCV MCH MCHC RDW Plt Count MPV Immature Gran % (Auto) Neut % (Auto) Lymph % (Auto) Gilliam % (Auto) Eos % (Auto) Baso % (Auto) Lymph # (Auto) Gilliam # (Auto) Eos # (Auto) Baso # (Auto) Abs Immat Gran (auto) Absolute Neuts (auto) Absolute Nucleated RBC Nucleated RBC % (auto) PT INR APTT Anion Gap Estim Creat Clear Calc Estimated GFR Random Glucose Calcium Total Bilirubin AST ALT Alkaline Phosphatase Total Protein Albumin Urine Color Yellow Urine Appearance Clear Urine pH 8.0 Ur Specific Emerson 1.015 Urine Protein 30 (1+) H Urine Glucose (UA) 100 H Urine Ketones 40 Urine Blood Negative Urine Nitrite Negative Ur Leukocyte Esterase Trace H Urine RBC 3-5 H Urine WBC 0-5 Ur Squamous Epith Cells 0-2 Urine Bacteria None Seen Hyaline Casts 0-2 COVID-19 ([facility]ULIUS) Negative COVID-19 Clin Com See Note Blood Type A Positive Antibody Screen NEGATIVE 06/26/22 06/26/22 06:11 06:11 MCV 81.6 MCH 26.8 L MCHC 32.8 RDW 12.9 Plt Count 411 H MPV 11.1 Immature Gran % (Auto) 0.5 H Neut % (Auto) 86.7 H Lymph % (Auto) 3.7 L Gilliam % (Auto) 8.8 Eos % (Auto) 0.1 Baso % (Auto) 0.2 Lymph # (Auto) 0.4 L Gilliam # (Auto) 1.1 Eos # (Auto) 0.0 Baso # (Auto) 0.0 Abs Immat Gran (auto) 0.06 H Absolute Neuts (auto) 10.3 H Absolute Nucleated RBC 0.000 Nucleated RBC % (auto) 0.0 PT INR APTT Anion Gap 19 Estim Creat Clear Calc 27.0 Estimated GFR 55 Random Glucose 124 H Calcium 9.7 Total Bilirubin AST ALT Alkaline Phosphatase Total Protein Albumin Urine Color Urine Appearance Urine pH Ur Specific Emerson Urine Protein Urine Glucose (UA) Urine Ketones Urine Blood Urine Nitrite Ur Leukocyte Esterase Urine RBC Urine WBC Ur Squamous Epith Cells Urine Bacteria Hyaline Casts COVID-19 ([facility]) COVID-19 Clin Com Blood Type Antibody Screen Assessment and Plan (1) Left displaced femoral neck fracture: Status: Acute Plan 81 year old women admitted with Right hip fracture Left femoral neck fracture Orthopedic surgery consultation Pain management Plan for OR today Hypokalemia Repleted Follow BMP Tachycardia Likely secondary to pain Normal EKG Follow telemetry Hypertension Continue home medications Monitor blood pressure closely Leukocytosis likely reactive, no infection Normocytic anemia no bleeding follow CBC DVT prophylaxis with pneumatic compression boots Attending Dr. Neff Full code Continue hospitalization for treatment of left femoral neck fracture requiring surgical intervention Quality Stroke Does the patient have a stroke diagnosis?: No VTE Prior VTE?: No VTE Risk Level:: Medical - moderate - high VTE Device Contraindication: N/A - Device Ordered VTE Drug Contraindication: Treatment Not Indicated
--- NOTE | 2022-06-26 12:49 | PC.NURSE ---
At 12:20 patient returned to the unit following Left Hemiarthroplasty. Pt is asleep and vitals are as follows 98.9F, 150/69, 95% on RA, 109. Surgical dressing to Left hip is clean, dry, and intact. Will continue to monitor.
[2022-06-27] VITALS (7 sets, daily range): BP systolic 133–170; BP diastolic 61–110; PULSE 78–126; RESP 16–20; TEMP 36.5–37.1; O2SAT 95–97; BMI 16.2
[2022-06-27] MEDS: Morphine Sulfate 2 MG/ML CARTRIDGE IVPUSH (01:35)
[2022-06-27] MEDS: Acetaminophen 325 MG TABLET 650 MG PO ×4 (03:38→22:36)
[2022-06-27] MEDS: hydroCHLOROthiazide 25 MG TABLET PO (06:18)
[2022-06-27] MEDS: amLODIPine Besylate 10 MG TABLET PO (06:18)
--- NOTE | 2022-06-27 06:23 | PC.NURSE ---
0623: Patient slept most of the night 0500 BP manual 170/110 meds not due until 09:[address] Greene re 0900 meds early agreed.
--- NOTE | 2022-06-27 08:25 | P.PNOP_ITS ---
Subjective Subjective Date of Service: 06/27/22 Physical Exam Vital Signs: Vital Signs: Last Vital Signs Temp 97.7 F 06/27/22 08:00 Pulse 126 H 06/27/22 08:00 Resp 20 06/27/22 08:00 BP 160/75 H 06/27/22 08:00 Pulse Ox 95 06/27/22 08:00 O2 Del Method 06/27/22 08:00 O2 Flow Rate 4 06/26/22 11:49 BMI result Body Mass Index 16.2 Const: General: cooperative, healthy appearing and no acute distress Resp: Effort & Inspection: normal respiratory effort and able to speak in complete sentences Cardio: Rate: regular rate Peripheral pulses: Peripheral pulses 2+ throughout GI: Palpation (GI): Soft to palpation Skin: General skin exam: no rashes or lesions noted Extrem: Other: bandage clean dry and intact. Hutchins intact. No erythema or effusion. Calf supple nontender. Neurovascularly intact. Procedures Date of Service Date of Service: 06/27/22 Progress Note: A&P Assessment and plan (1) Left displaced femoral neck fracture: Status: Acute Assessment and Plan: * Continue pain mgmnt * Begin lovenox for dvt ppx * begin PT / OT for RT hip hemiarthroplasty -posterior precautions * Dispo planning-Pending PT eval, pain mgmnt Time Spent With Patient Time: Total time spent is greater than 50% in coordination of care (as documented) at patient's floor/unit and/or counseling patient: Quality Stroke Does the patient have a stroke diagnosis?: No VTE Prior VTE?: No VTE Risk Level:: Medical - moderate - high VTE Device Contraindication: N/A - Device Ordered VTE Drug Contraindication: Treatment Not Indicated
[2022-06-27 09:14] LABS: Blood Urea Nitrogen 37 mg/dL (9-16); Calcium 8.8 mg/dL (8.4-10.2); Creatinine Clr Calc Pharmacy 25.9; Estimated Glomerular Filt Rate 52; Glucose Random 119 mg/dL (60-115)
[2022-06-27 09:23] LABS: Anion Gap 18 (12-20); Carbon Dioxide 28 mmol/L (22-29); Chloride 91 mmol/L (96-108); Potassium 4.2 mmol/L (3.3-5.1); Sodium 133 mmol/L (135-145)
[2022-06-27 09:29] LABS: Magnesium 1.9 mg/dL (1.6-2.6); Thyroid Stimulating Hormone 0.16 uIU/mL (0.32-4.0)
[2022-06-27] MEDS: Potassium Chloride ER 20 MEQ TAB.ER.PRT PO (09:52)
[2022-06-27] MEDS: 0.9 % Sodium Chloride Flush 3 ML SYRINGE IVFLUSH ×3 (09:52→21:00)
--- NOTE | 2022-06-27 10:07 | HO.PM.IMPN ---
Subjective Subjective Date of Service: 06/27/22 Review of Systems Follow-up left hip arthroplasty Denies pain however history of dementia therefore unable to obtain accurate history Physical Exam Vital Signs: Vital Signs: Last Vital Signs Temp 97.7 F 06/27/22 08:00 Pulse 126 H 06/27/22 08:00 Resp 20 06/27/22 08:00 BP 160/75 H 06/27/22 08:00 Pulse Ox 95 06/27/22 08:00 O2 Del Method 06/27/22 08:00 O2 Flow Rate 4 06/26/22 11:49 BMI result Body Mass Index 16.2 Appearing in no acute distress lung sounds are clear to auscultation heart regular rate rhythm, clear S1, S2 positive bowel sounds, abdomen is soft, nontender neuro patient is alert, dementia Left hip dressing intact, surgical wound not visualized Objective Data Active Medications Acetaminophen (Acetaminophen 325 Mg Tablet) 650 mg PO Q6H [facility] Last Admin: 06/27/22 09:52 Dose: 650 mg Documented By: TIFFANIE Acetaminophen (Acetaminophen 325 Mg Tablet) 650 mg PO Q6H PRN PRN Reason: Pain, Mild (Pain Scale 1-3) Amlodipine Besylate (Amlodipine Besylate 10 Mg Tablet) 10 mg PO DAILY [facility]; Protocol Last Admin: 06/27/22 06:18 Dose: 10 mg Documented By: NORMA Donepezil HCl (Donepezil Hcl 5 Mg Tablet) 5 mg PO BEDTIME [facility] Last Admin: 06/26/22 22:36 Dose: Not Given Documented By: NORMA Non-Admin Reason: Patient Asleep Hydrochlorothiazide (Hydrochlorothiazide 25 Mg Tablet) 25 mg PO DAILY [facility]; Protocol Last Admin: 06/27/22 06:18 Dose: 25 mg Documented By: NORMA Morphine Sulfate (Morphine Sulfate 2 Mg/Ml Cartridge) 2 mg IVPUSH Q4H PRN; Protocol PRN Reason: Pain, Mild (Pain Scale 1-3) Last Admin: 06/27/22 01:35 Dose: 2 mg Documented By: NORMA Oxycodone HCl (Oxycodone Hcl Immed Release 5 Mg Tablet) 5 mg PO Q6H PRN PRN Reason: Pain, Mild (Pain Scale 1-3) Pharmacy Consult (Consult Rx Perform Med Rec) 1 each MISCELLANE ONCE PRN PRN Reason: Consult order Potassium Chloride (Potassium Chloride Er 20 Meq Tab.Er.Prt) 20 meq PO DAILY [facility] Last Admin: 06/27/22 09:52 Dose: 20 meq Documented By: TIFFANIE Sodium Chloride (0.9 % Sodium Chloride Flush 3 Ml Syringe) 3 ml IVFLUSH QSHIFT [facility] Last Admin: 06/27/22 09:52 Dose: 3 ml Documented By: TIFFANIE Labs CBC & Chem 7: 06/26/22 06:11 06/27/22 08:32 Labs: Laboratory Results - last 24 hr 06/27/22 06/27/22 08:32 08:32 Anion Gap 18 Estim Creat Clear Calc 25.9 Estimated GFR 52 Random Glucose 119 H Calcium 8.8 D Magnesium 1.9 TSH 0.16 L Assessment and Plan (1) Left displaced femoral neck fracture: Status: Acute Plan 81 year old women admitted with left hip fracture Status post left hip arthroplasty Orthopedic surgery consultation Pain management, scheduled tylenol Hypokalemia. Resolved Repleted Follow BMP Tachycardia Likely secondary to pain no hypoxia Normal EKG Follow telemetry 500 ml IV fluid bolus Hypertension Continue home medications Monitor blood pressure closely Leukocytosis likely reactive, no infection Normocytic anemia no bleeding follow CBC DVT prophylaxis with pneumatic compression boots Attending Dr. vera Full code Continue hospitalization for treatment of left femoral neck fracture requiring surgical intervention Quality Stroke Does the patient have a stroke diagnosis?: No VTE Prior VTE?: No VTE Risk Level:: Medical - moderate - high VTE Device Contraindication: N/A - Device Ordered VTE Drug Contraindication: Treatment Not Indicated
[2022-06-27] MEDS: 0.9 % Sodium Chloride 1,000 ML 250 ML IVCONT (10:33)
--- NOTE | 2022-06-27 13:07 | MHC.CLN ---
PT IS MODERATELY MALNOURISHED PT WITH MILDLY DEPLETED SUBCUTANEOUS FAT AND MUSCLE MASS, WITH 22% SIGNIFICANT WT LOSS X 1 YEAR DIET RX: REGULAR-APPROPRIATE RECOMMEND ADDING ENSURE BID TO INCREASE KCALS SUPP TO PROVIDE 700KCALS, 40G PROTEIN DISCUSSED WITH PT'S WT LOSS AND AGREES TO TRIAL OF ENSURE (NO VANILLA) MONITOR PO INTAKE CLOSELY SEE ALSO FULL CLINICAL NUTRITION ASSESSEMENT
[2022-06-27 13:50] LABS: Hematocrit 26.9 % (37.0-47.0); Hemoglobin 8.6 g/dl (12.0-16.0)
--- NOTE | 2022-06-27 14:23 | HO.POSTANES ---
Post Anesthesia Evaluation Post Anesthesia Evaluation Vital Signs: Vital Signs Temp Pulse Resp BP Pulse Ox O2 Del Method 06/27/22 11:41 98.7 F 122 H 20 140/72 H 96 Room Air 06/27/22 10:21 126 H 160/75 H 95 06/27/22 08:00 97.7 F 126 H 20 160/75 H 95 Room Air 06/27/22 04:00 97.8 F 123 H 16 170/110 H 96 Room Air Anesthesia: General Mental Status: Awake Pain Control: Satisfactory Nausea/Vomiting: None Hydration: Adequate Anesthesia-Related Issues: No Anes. Related Issues
--- NOTE | 2022-06-27 14:25 | MHC.CM.PN ---
Patient is accepted at [facility]. Moncho Manrique Pt may discharge on Monday. Patient will transport via BLS. Pt lives at home with her spouse. She has a dtr who works at [facility].
[2022-06-27] MEDS: Enoxaparin Sodium 30 MG/0.3 ML SYRINGE SUBCUT (15:18)
[2022-06-27] MEDS: Donepezil HCl 5 MG TABLET PO (20:58)
--- NOTE | 2022-06-27 22:15 | PC.NURSE ---
Patient very confused attempting to come out of bed multiple times, undressing, and being alarmed by VMT. frequent redirecting needed. Purewick placed due to multiple incontinent episodes.
[2022-06-28] MEDS: Acetaminophen 325 MG TABLET 650 MG PO ×4 (04:30→20:58)
[2022-06-28 07:35] VITALS: BP 138/63; PULSE 105; RESP 20; TEMP 37; O2SAT 97
--- NOTE | 2022-06-28 07:40 | P.PNOP_ITS ---
Subjective Subjective Date of Service: 06/28/22 Interval history: POD 2 s/p Left hip hemiarthroplasty no overnight events resting in bed Physical Exam Vital Signs: Vital Signs: Last Vital Signs Temp 98.6 F 06/28/22 07:35 Pulse 105 H 06/28/22 07:35 Resp 20 06/28/22 07:35 BP 138/63 06/28/22 07:35 Pulse Ox 97 06/28/22 07:35 O2 Del Method 06/28/22 07:35 O2 Flow Rate 4 06/26/22 11:49 BMI result Body Mass Index 16.2 Const: General: cooperative, healthy appearing and no acute distress Resp: Effort & Inspection: normal respiratory effort and able to speak in complete sentences Cardio: Rate: regular rate Peripheral pulses: Peripheral pulses 2+ throughout GI: Palpation (GI): Soft to palpation Skin: General skin exam: no rashes or lesions noted Extrem: Other: bandage intact. No erythema or effusion. Calf supple nontender. Neurovascularly intact. Procedures Date of Service Date of Service: 06/28/22 Progress Note: A&P Assessment and plan (1) Left displaced femoral neck fracture: Status: Acute Assessment and Plan: * Continue pain mgmnt * Begin lovenox for dvt ppx * begin PT/OT for left hip hemiarthroplasty * Dispo planning-Pending PT eval, pain mgmnt Time Spent With Patient Time: Total time spent is greater than 50% in coordination of care (as documented) at patient's floor/unit and/or counseling patient: Quality Stroke Does the patient have a stroke diagnosis?: No VTE Prior VTE?: No VTE Risk Level:: Medical - moderate - high VTE Device Contraindication: N/A - Device Ordered VTE Drug Contraindication: Treatment Not Indicated
[2022-06-28] MEDS: Potassium Chloride ER 20 MEQ TAB.ER.PRT PO (07:49)
[2022-06-28] MEDS: 0.9 % Sodium Chloride Flush 3 ML SYRINGE IVFLUSH ×3 (07:49→20:27)
[2022-06-28] MEDS: hydroCHLOROthiazide 25 MG TABLET PO (07:49)
[2022-06-28] MEDS: amLODIPine Besylate 10 MG TABLET PO (07:49)
[2022-06-28 08:08] LABS: Anion Gap 12 (12-20); Blood Urea Nitrogen 23 mg/dL (9-16); Calcium 8.5 mg/dL (8.4-10.2); Carbon Dioxide 32 mmol/L (22-29); Chloride 94 mmol/L (96-108); Creatinine Clr Calc Pharmacy 39.7; Estimated Glomerular Filt Rate > 60; Glucose Random 133 mg/dL (60-115); Potassium 3.6 mmol/L (3.3-5.1); Sodium 134 mmol/L (135-145)
--- NOTE | 2022-06-28 08:35 | P.CDIC_ITS ---
CDI Concurrent Query Documentation Clarification: PHYSICIAN'S DOCUMENTATION REQUEST Date of Query: 06/28/22 0836 Patient Name: Mac Sidhu Admit Date: 06/25/22 Dear Doctor, A review of the medical record indicates additional documentation may be needed. Please review below and update the documentation accordingly. Clinical Indicators: Height: [] 5'1 Weight: [] 39 kg BMI: [] 16.2 Other Clinical Notes Supporting Significance of the BMI: Risk Factors/Clinical Indicators/Treatments Per Nutrition note 06/27/22: pt is moderately malnourished pt with mildly depleted subcutaneous fat and muscle mass, with 22% significant wt loss x1 year Recommend adding Ensure BID to increase Kcals If possible, please provide an associated diagnosis related to the abnormal BMI, such as: For a BMI <= 19: * Underweight * Weight loss * Cachexia * Anorexia Or: * BMI is not significant * Other (please specify) * Unable to determine Use of terms such as suspected, likely, concern for, or probable (associated with a specific diagnosis that is being evaluated, monitored, or treated as if it exists) are acceptable and can be coded in the inpatient setting, when documented at the time of discharge. Thank you, Linda Mahmood RN Extension: [phone] Please use your independent medical judgment in providing your response. THIS QUERY IS PART OF THE PERMANENT MEDICAL RECORD Other Diagnosis: Protein calorie malnutrition
[2022-06-28 09:01] VITALS: BP 138/63; PULSE 105; O2SAT 97
--- NOTE | 2022-06-28 10:43 | P.OP_ITS ---
Operative Note Operative Note Date of Service: 06/26/22 Narrative: Date of Service: 06/26/22 Pre-op diagnosis: left femoral neck fracture Post-op diagnosis: same Procedure: left hip alonzo Implants: Negrita Accolage2 127 deg #4 with +3 26/42 bipolar Surgeon: Franco Fall MD Anesthesia: GETA and local Was an Resident Care Assistant used for this Procedure?: Yes Resident Care Assistant: Sally Arce Estimated blood loss (mL): 150 IV fluids (mL): 500 Pathology: other Condition: stable Disposition: PACU Procedure in detail: Patient was brought to the operative room placed in the lateral decubitus position. All bony prominences were well padded and the was prepped and draped in standard sterile fashion. IV antibiotics per weight were administered and a time-out was called to identify proper site proper procedure proper surgeon. Radiographs were available and confirmed. . I began by making a curvilinear incision over the posterolateral aspect of the greater trochanter. Dissection was taken down to the tensor fascia which was incised in line with the incision and a Charnley retractor was placed. The hip was internally rotated and the external rotators were identified. All vessels in the area were cauterized and a full-thickness capsular/external rotator layer was developed in a hockey-stick fashion starting just proximal to the piriformis. This layer was tagged and the displaced femoral neck fracture was identified. Clean-up cuts was performed while protecxtion the posterolateral soft tissues and the head was removed and measured (41-42mm) on the back table. I then copiously irrigated the acetabulum and removed all bony fragments. Once this was done I used a cookie cutter to lateralize and a Charnley awl to identify the canal and then sequentially broached up to a 127 deg #4 and trialed with a +0/42 bipolar. I was satisfied with the length and the stability. Therefore I then placed my final femoral implant and then retrialed. I was satisfied with the +3/42 trial. My final bipolar component were then placed. I closed the capsular layer with FiberWire and then, after a three minute iodine soak. I performed a layered closure with malia on skin. The patient was placed in sterile dressing extubated brought to recovery room in stable condition there were no known complications.
[2022-06-28 12:00] VITALS: BP 146/62; PULSE 112; RESP 20; TEMP 36.8; O2SAT 97
--- NOTE | 2022-06-28 14:21 | HO.PM.IMPN ---
Subjective Subjective Date of Service: 06/28/22 Review of Systems Follow-up left hip arthroplasty Denies pain however history of dementia therefore unable to obtain accurate history Physical Exam Vital Signs: Vital Signs: Last Vital Signs Temp 98.2 F 06/28/22 12:00 Pulse 112 H 06/28/22 12:00 Resp 20 06/28/22 12:00 BP 146/62 H 06/28/22 12:00 Pulse Ox 97 06/28/22 12:00 O2 Del Method 06/28/22 12:00 O2 Flow Rate 4 06/26/22 11:49 BMI result Body Mass Index 16.2 Appearing in no acute distress lung sounds are clear to auscultation heart regular rate rhythm, clear S1, S2 positive bowel sounds, abdomen is soft, nontender neuro patient is alert x3, no focal deficits Left surgical dressing intact Objective Data Active Medications Acetaminophen (Acetaminophen 325 Mg Tablet) 650 mg PO Q6H [facility] Last Admin: 06/28/22 09:58 Dose: 650 mg Documented By: EMIL Acetaminophen (Acetaminophen 325 Mg Tablet) 650 mg PO Q6H PRN PRN Reason: Pain, Mild (Pain Scale 1-3) Amlodipine Besylate (Amlodipine Besylate 10 Mg Tablet) 10 mg PO DAILY [facility]; Protocol Last Admin: 06/28/22 07:49 Dose: 10 mg Documented By: EMIL Donepezil HCl (Donepezil Hcl 5 Mg Tablet) 5 mg PO BEDTIME [facility] Last Admin: 06/27/22 20:58 Dose: 5 mg Documented By: MARYAN Enoxaparin Sodium (Enoxaparin Sodium 30 Mg/0.3 Ml Syringe) 30 mg SUBCUT Q24H [facility] Last Admin: 06/27/22 15:18 Dose: 30 mg Documented By: TIFFANIE Hydrochlorothiazide (Hydrochlorothiazide 25 Mg Tablet) 25 mg PO DAILY [facility]; Protocol Last Admin: 06/28/22 07:49 Dose: 25 mg Documented By: EMIL Morphine Sulfate (Morphine Sulfate 2 Mg/Ml Cartridge) 2 mg IVPUSH Q4H PRN; Protocol PRN Reason: Pain, Mild (Pain Scale 1-3) Last Admin: 06/27/22 01:35 Dose: 2 mg Documented By: NORMA Oxycodone HCl (Oxycodone Hcl Immed Release 5 Mg Tablet) 5 mg PO Q6H PRN PRN Reason: Pain, Mild (Pain Scale 1-3) Pharmacy Consult (Consult Rx Perform Med Rec) 1 each MISCELLANE ONCE PRN PRN Reason: Consult order Potassium Chloride (Potassium Chloride Er 20 Meq Tab.Er.Prt) 20 meq PO DAILY [facility] Last Admin: 06/28/22 07:49 Dose: 20 meq Documented By: EMIL Sodium Chloride (0.9 % Sodium Chloride Flush 3 Ml Syringe) 3 ml IVFLUSH QSHIFT [facility] Last Admin: 06/28/22 07:49 Dose: 3 ml Documented By: EMIL Labs CBC & Chem 7: 06/27/22 13:20 06/28/22 06:44 Labs: Laboratory Results - last 24 hr 06/28/22 06:44 Anion Gap 12 Estim Creat Clear Calc 39.7 Estimated GFR > 60 Random Glucose 133 H Calcium 8.5 Assessment and Plan (1) Left displaced femoral neck fracture: Status: Acute Plan 81 year old women admitted with left hip fracture Status post left hip arthroplasty Orthopedic surgery consultation Pain management, scheduled tylenol Hypokalemia. Resolved Repleted Follow BMP Tachycardia. Slowly improving Likely secondary to pain no hypoxia Normal EKG Follow telemetry s/p 500 ml IV fluid bolus Hypertension Continue home medications Monitor blood pressure closely Leukocytosis likely reactive, no infection Normocytic anemia no bleeding follow CBC DVT prophylaxis with pneumatic compression boots Attending Dr. vera Full code DISPO Plan for rehab possibly tomorrow Continue hospitalization for treatment of left femoral neck fracture requiring surgical intervention Quality Stroke Does the patient have a stroke diagnosis?: No VTE Prior VTE?: No VTE Risk Level:: Medical - moderate - high VTE Device Contraindication: N/A - Device Ordered VTE Drug Contraindication: Treatment Not Indicated
[2022-06-28 15:05] VITALS: BP 124/59; PULSE 78; RESP 16; TEMP 36.5; O2SAT 99
[2022-06-28] MEDS: Enoxaparin Sodium 30 MG/0.3 ML SYRINGE SUBCUT (15:55)
[2022-06-28 19:16] VITALS: BP 136/60; PULSE 100; RESP 16; TEMP 36.1; O2SAT 96
[2022-06-28] MEDS: Morphine Sulfate 2 MG/ML CARTRIDGE IVPUSH (20:18)
[2022-06-28] MEDS: Donepezil HCl 5 MG TABLET PO (20:19)
[2022-06-28 23:17] VITALS: BP 157/79; PULSE 103; RESP 15; TEMP 37.3; O2SAT 98
[2022-06-29] MEDS: Haloperidol Lactate 5 MG/ML VIAL 2.5 MG IVPUSH (01:09)
[2022-06-29 04:00] VITALS: BP 130/60; PULSE 128; RESP 15; TEMP 36.8; O2SAT 97
[2022-06-29] MEDS: Acetaminophen 325 MG TABLET 650 MG PO ×2 (04:21→09:24)
--- NOTE | 2022-06-29 07:45 | PM.PNORT ---
Subjective Subjective Date of Service: 06/29/22 Interval history: POD3 s/p lt hip alonzo. Patient is resting comfortably in bed. No overnight events. Pain appears to be well managed. Confused at baseline. No additional complaints. Physical Exam Vital Signs: Vital Signs: Last Vital Signs Temp 98.3 F 06/29/22 04:00 Pulse 128 H 06/29/22 04:00 Resp 15 06/29/22 04:00 BP 130/60 06/29/22 04:00 Pulse Ox 97 06/29/22 04:00 O2 Del Method 06/29/22 04:00 O2 Flow Rate 4 06/26/22 11:49 BMI result Body Mass Index 16.2 Const: General: cooperative, healthy appearing and no acute distress Resp: Effort & Inspection: normal respiratory effort and able to speak in complete sentences Cardio: Rate: regular rate Peripheral pulses: Peripheral pulses 2+ throughout GI: Palpation (GI): Soft to palpation Skin: Lesions: no lesions Rashes: no rashes Extrem: Other: Right hip Aquacel is c/d/i/ Moving all extremities. NVI. Procedures Date of Service Date of Service: 06/29/22 Progress Note: A&P Assessment and plan (1) Left displaced femoral neck fracture: Status: Acute Assessment and Plan: Continue pain mgmnt Continue Lovenox for dvt ppx Continue PT for right hip hemiarthroplasty Dispo planning-Pending PT eval, pain mgmnt (2) Fracture of left hip: Status: Acute Time Spent With Patient Time: Total time spent is greater than 50% in coordination of care (as documented) at patient's floor/unit and/or counseling patient: Quality Stroke Does the patient have a stroke diagnosis?: No VTE Prior VTE?: No VTE Risk Level:: Medical - moderate - high VTE Device Contraindication: N/A - Device Ordered VTE Drug Contraindication: Treatment Not Indicated
[2022-06-29 08:00] VITALS: BP 153/60; PULSE 112; RESP 16; TEMP 36.7; O2SAT 96
[2022-06-29 08:36] LABS: Hematocrit 25.5 % (37.0-47.0); Hemoglobin 8.2 g/dl (12.0-16.0)
[2022-06-29] MEDS: hydroCHLOROthiazide 25 MG TABLET PO (09:23)
[2022-06-29] MEDS: amLODIPine Besylate 10 MG TABLET PO (09:23)
[2022-06-29] MEDS: 0.9 % Sodium Chloride Flush 3 ML SYRINGE IVFLUSH (09:24)
[2022-06-29] MEDS: Potassium Chloride ER 20 MEQ TAB.ER.PRT PO (09:24)
[2022-06-29 10:10] LABS: Anion Gap 14 (12-20); Blood Urea Nitrogen 17 mg/dL (9-16); Calcium 8.6 mg/dL (8.4-10.2); Carbon Dioxide 32 mmol/L (22-29); Chloride 93 mmol/L (96-108); Creatinine Clr Calc Pharmacy 39.7; Estimated Glomerular Filt Rate > 60; Free T4 (Free Thyroxine) 1.32 ng/dL (0.71-1.85); Glucose Random 112 mg/dL (60-115); Sodium 136 mmol/L (135-145)
--- NOTE | 2022-06-29 11:57 | PM.DS ---
DS: Providers Provider Date of Service: 06/29/22 Date of admission: 06/25/22 15:28 Primary care physician: Raz Martell MD Consults: 06/25/22 15:28 Consult to Orthopedics Routine Consulting Provider: Franco Fall Reason for consultation: hip fx Has provider been notified: No Attending physician on discharge: Mervin Jimenez Discharging clinician: Hilaria Goldman DS: Diagnosis Discharge Diagnosis (1) Left displaced femoral neck fracture: Status: Acute (2) Fracture of left hip: Status: Acute DS: Summary Hospital Course Hospital Course: 81-year-old woman presented to the ER after a fall in the bathroom.? According to the patient's daughter she had a fall and may have hit her head on the side of the bathtub.? She was unable to get up.? EMS was called.? She lives with her who is her primary caregiver, she does have dementia.? Hip x-ray in the ER showed slightly impacted fracture of the left femoral neck with no dislocation.? Potassium noted to be 3.0, blood pressure mildly elevated at 150 7/75 with tachycardia.? She denied chest pain, shortness breath, nausea, vomiting, diarrhea.? She will be admitted for further management and treatment of acute hip fracture. Status post left hip arthroplasty Did really well postoperatively Pain management, scheduled tylenol Hypokalemia. Daily potassium for 5 days, check potassium in 3 days Tachycardia. Slowly improving Likely secondary to pain no hypoxia Normal EKG no arrhythmia on telemetry Hypertension Continue home medications Monitor blood pressure closely Leukocytosis likely reactive, no infection Normocytic anemia no bleeding Time Spent with Patient Time attestation: Total time spent providing and/or coordinating discharge services: Discharge coordination time: Greater than 30 minutes Quality: Safe Use of Opioids Does Pt have an Active Cancer Diagnosis on the Problem List?: No Quality: Stroke Does the patient have a stroke diagnosis?: No Physical Exam Vital Signs: Vital Signs: Last Vital Signs Temp 98.1 F 06/29/22 08:00 Pulse 112 H 06/29/22 08:00 Resp 16 06/29/22 08:00 BP 153/60 H 06/29/22 08:00 Pulse Ox 96 06/29/22 08:00 O2 Del Method 06/29/22 08:00 O2 Flow Rate 4 06/26/22 11:49 BMI result Body Mass Index 16.2 Appearing in no acute distress lung sounds are clear to auscultation heart regular rate rhythm, clear S1, S2 positive bowel sounds, abdomen is soft, nontender neuro patient is alert x3, no focal deficits left hip surgical dressing clean dry andintact, surgical wound not visualized DS: Data Data Completed and Pending Completed studies during hospitalization [Text1]: Pending at discharge 06/26/22 10:59 Surgical [PTH] Routine Labs on day of discharge: Laboratory Results - last 24 hr 06/29/22 06/29/22 08:05 08:05 Hgb 8.2 L Hct 25.5 L Sodium 136 Potassium 3.0 L Chloride 93 L Carbon Dioxide 32 H Anion Gap 14 BUN 17 H Creatinine 0.66 Estim Creat Clear Calc 39.7 Estimated GFR > 60 Random Glucose 112 Calcium 8.6 Free T4 1.32 Discharge Plan Discharge Anticipated Discharge Date/Time: 06/29/22 11:52 Patient Disposition: Xfer Inpatient Rehab Fac Discharge Diagnosis: Left femoral neck fracture status post hemiarthroplasty Fall Referrals: Raz Martell MD [Primary Care Provider] - 1 Week Discharge Medications: New potassium chloride 20 mEq Tablet,Er Particles/Crystals 20 meq PO DAILY Qty: 5 0RF oxycodone 5 mg Tablet 5 mg PO Q6H PRN (Reason: Pain, Mild (Pain Scale 1-3)) Qty: 8 0RF Rx Instructions: Partial Fill upon patient request. Continued hydrochlorothiazide 25 mg tablet 25 mg PO DAILY Qty: 90 8RF amlodipine 10 mg tablet 10 mg PO DAILY Qty: 90 8RF donepezil 10 mg tablet 5 mg PO BEDTIME Discharge Orders: Discharge Order (Routine); Ordered 06/29/22 Ordered By: Hilaria Goldman Diet: Advance to usual diet Activity on Discharge: As tolerated Stand Alone Forms: Patient Portal Discharge page Care Plan Goals: Check potassium level in 3 days Health Concerns: Left femoral neck fracture status post hemiarthroplasty Fall Plan of Treatment: You will be discharged to rehabilitation, follow-up with primary care provider once discharged Take all medications as prescribed Assessment: see discharge summary
[2022-06-29 12:00] VITALS: PULSE 111; RESP 16; TEMP 36.4
--- NOTE | 2022-06-29 12:07 | MHC.CM.PN ---
Per ROUNDS discussion, Patient will be medically cleared for dc to Acute Rehab today. Patient will dc to [facility] today at 2:30 PM, via [facility]. CM met with Patient and her at bedside and addressed IMM with them, providing them with the original and placing a copy on the chart. Patient and are aware of and in agreement with the dc plan.
[2022-06-29] MEDS: Potassium Chloride Packet 20 MEQ PACKET 40 MEQ PO (12:24)
[2022-06-29 13:17] LABS: COVID-19 Test Negative (Negative); IDNOW Serial# 55D5AD1C
== END 2022-06-29 15:00 | DRG 522 ==
LOC: HO.ED 14:31 → HO.EDOVER 15:31 → HO.IMC 06-26 04:26
PROVIDERS: Orthopaedic Surgery; Physician Assistant; Physician Assistant Medical; Admitting Provider Nurse Practitioner Acute Care; Emergency Provider Emergency Medicine; PCP Internal Medicine; Visit Provider Nurse Practitioner Acute Care
PROC: 0SRS0JA Replacement of Left Hip Joint, Femoral Surface with Synthetic Substitute, Uncemented, Open Approach (ICD-10-PCS; CPT 27125; principal; 2022-06-26 09:00)
DX: S72.002A Fracture of unspecified part of neck of left femur, initial encounter for closed fracture (principal); E46 Unspecified protein-calorie malnutrition; Z68.1 Body mass index [BMI] 19.9 or less, adult; W19.XXXA Unspecified fall, initial encounter; R00.0 Tachycardia, unspecified; E87.6 Hypokalemia; D64.9 Anemia, unspecified; D72.829 Elevated white blood cell count, unspecified; I10 Essential (primary) hypertension; Z20.822 Contact with and (suspected) exposure to COVID-19; Z79.899 Other long term (current) drug therapy
CPT/HCPCS: 36415; 70450; 71045; 72125; 72170; 73502; 80048; 80053; 81001; 81003; 83735; 84439; 84443; 85014; 85018; 85025; 85610; 85730; 86850; 86900; 86901; 87635; 88305; 88311; 93005; 96374; 97116; 97162; 97166; 97530; 97535; 99285; C1758; C1776; J0690; J1650; J2270; J2795; J3010

== ENCOUNTER 2022-07-14 12:08 | Outpatient (REF) | payer MEDICARE, SELFPAY ==
--- NOTE | ~2022-07-14 | XR_ITS ---
EXAMINATION: XR HIP, LEFT CLINICAL INFORMATION: Hip pain. COMPARISON: None TECHNIQUE: Two views of the left hip. FINDINGS: There is a total left hip prosthesis with the prosthetic components in satisfactory alignment. No bony erosive changes seen. There is no visible acute fracture or dislocation seen. SI joints are symmetrical. The right hip joint is unremarkable. There is large amount of stool in colon. XR/XR hip LT w PEL1V IMPRESSION: 1. Total left hip prosthesis in satisfactory alignment. No visible acute fracture or dislocation seen. 2. Moderate constipation.
== END 2022-07-14 12:09 | disposition home or self-care (01) ==
LOC: HO.HOSX 12:08
PROVIDERS: Visit Provider Physician Assistant
DX: M25.552 Pain in left hip (principal)
CPT/HCPCS: 73502

== ENCOUNTER 2022-08-10 12:38 | Outpatient (REF) | payer MEDICARE, SELFPAY ==
--- NOTE | ~2022-08-10 | XR_ITS ---
EXAMINATION: XR HIP, LEFT CLINICAL INFORMATION: Left hip pain COMPARISON: None TECHNIQUE: Two views of the left hip. AP pelvis one view FINDINGS: There is a total left hip prosthesis with prosthetic components in satisfactory alignment. No periprosthetic fracture or loosening seen. The right hip joint appears unremarkable. Rest the pelvis is unremarkable. There is large amount of stool in colon. XR/XR hip LT w PEL1V IMPRESSION: 1. Total left hip prosthesis in satisfactory alignment. No periprosthetic fracture or loosening seen. 2. There is moderate constipation.
== END 2022-08-10 12:39 | disposition home or self-care (01) ==
LOC: HO.HOSX 12:38
PROVIDERS: Visit Provider Physician Assistant
DX: Z47.1 Aftercare following joint replacement surgery (principal); Z96.642 Presence of left artificial hip joint
CPT/HCPCS: 73502

== ENCOUNTER 2022-10-09 09:56 | Emergency (ER) | payer MEDICARE, SELFPAY ==
[2022-10-09] VITALS (7 sets, daily range): BP systolic 148–200; BP diastolic 66–89; PULSE 111–136; RESP 16–20; TEMP 36.9–37.1; O2SAT 95–100; BMI 15.4
--- NOTE | ~2022-10-09 | XR_ITS ---
EXAMINATION: PELVIS ONE VIEW AND LEFT FEMUR 4 VIEWS CLINICAL INFORMATION: Pain status post fall COMPARISON: None TECHNIQUE: As above nonweightbearing FINDINGS: Limited detail. Acute periprosthetic fracture of the proximal left femoral diaphysis extending to the base of the left greater trochanter. Mild comminution. No dislocation. Distal femur appears intact grossly. Rotational component noted. XR/XR femur LT 2V IMPRESSION: Acute periprosthetic fracture of the proximal left femoral diaphysis extending to the base of the left greater trochanter.
--- NOTE | ~2022-10-09 | XR_ITS ---
EXAMINATION: PELVIS ONE VIEW AND LEFT FEMUR 4 VIEWS CLINICAL INFORMATION: Pain status post fall COMPARISON: None TECHNIQUE: As above nonweightbearing FINDINGS: Limited detail. Acute periprosthetic fracture of the proximal left femoral diaphysis extending to the base of the left greater trochanter. Mild comminution. No dislocation. Distal femur appears intact grossly. Rotational component noted. XR/XR pelvis 1-2V IMPRESSION: Acute periprosthetic fracture of the proximal left femoral diaphysis extending to the base of the left greater trochanter.
--- NOTE | ~2022-10-09 | CT_ITS ---
EXAMINATION: CT HEAD WITHOUT CONTRAST CT CERVICAL SPINE WITHOUT CONTRAST CLINICAL INFORMATION: Unwitnessed fall. COMPARISON: CT head and cervical spine from 06/25/2022. TECHNIQUE: Contiguous axial imaging was performed from the skull base to vertex without intravenous administration of contrast. Contiguous axial imaging was performed from the upper chest through the skull base without intravenous administration of contrast. Coronal and sagittal reformats were obtained at the acquisition workstation. This CT examination was performed using dose optimization techniques as appropriate, variously including the following: *Automated exposure control. *Adjustment of mA and/or kV according to patient size (this includes techniques or standardized protocols for targeted exams where dose is matched to indication/reason for exam; i.e. extremities or head). *Use of iterative reconstruction technique. DLP: 1308 mGy-cm FINDINGS: Head: There is no evidence of acute intracranial hemorrhage or edematous territorial infarction. Jules-white matter differentiation is preserved. Multiple small lacunar infarcts of the bilateral lentiform nuclei. Confluent hypoattenuation in the periventricular and deep white matter. Proportional prominence of the ventricles and sulcal spaces without evidence of obstructive hydrocephalus. No abnormal mass effect or midline shift. No extra-axial fluid collections. No acute soft tissue or osseous abnormalities. The mastoid air cells and visualized paranasal sinuses are clear. Cervical Spine: The atlantooccipital and atlantoaxial articulations remain well aligned. Straightening of the normal cervical lordosis. Otherwise, there is anatomic alignment of the vertebral bodies and posterior elements. No evidence of acute fracture or subluxation. The vertebral body heights are maintained. Moderate degenerative disc disease at C5-C6 and C6-C7. Mild degenerative disc disease at all additional cervical levels. Facet and uncovertebral joint arthropathy leads to osseous encroachment on the neural foramina at C5-C6. There is no prevertebral soft tissue swelling. The thyroid gland and remaining cervical soft tissues are normal in appearance. Biapical pleural thickening. The lung apices demonstrate no abnormalities. CT/CT cervical spine wo IV con IMPRESSION: 1. No evidence of acute intracranial hemorrhage or edematous territorial infarction. 2. Extensive underlying microangiopathy and generalized cerebral volume loss. 3. No evidence of acute fracture or traumatic subluxation of the cervical spine. 4. Moderate multilevel degenerative spondyloarthropathy of the cervical spine.
--- NOTE | 2022-10-09 09:59 | ECG_ITS ---
Test Reason : Dizziness/Fall Blood Pressure : / mmHG Vent. Rate : 119 BPM Atrial Rate : 119 BPM P-R Int : 160 ms QRS Dur : 076 ms QT Int : 318 ms P-R-T Axes : 078 056 073 degrees QTc Int : 447 ms Sinus tachycardia with Premature atrial complexes Nonspecific ST abnormality Abnormal ECG When compared with ECG of 26-JUN-2022 09:26, Premature atrial complexes are now Present Referred By: Veena Wright Electronically Signed By:Mauro Dewey
[2022-10-09 10:26] LABS: MANUAL DIFF FLAG NO
[2022-10-09] MEDS: fentaNYL citrate/PF 100 MCG/2 ML VIAL 25 MCG IVPUSH ×2 (10:38→12:32)
[2022-10-09 10:39] LABS: Basophils Absolute Auto 0.1 X10*3/uL (0.0-0.2); Basophils Percent Auto 0.3 % (0-2); Eosinophils Absolute Auto 0.1 X10*3/uL (0.0-0.4); Eosinophils Percent Auto 0.3 % (0-4); Hematocrit 27.1 % (37.0-47.0); Imm Gran Abs Auto 0.08 X10*3/uL (0.00-0.03); Imm Gran Pct Auto 0.5 % (0.0-0.4); Lymphocytes Percent Auto 6.2 % (20-40); Mean Corpuscular HGB Conc 29.5 g/dl (31.0-35.0); Mean Corpuscular Hemoglobin 21.3 pg (27.0-33.0); Mean Corpuscular Volume 72.3 fL (80.0-98.0); Mean Platelet Volume 10.7 fL (9.4-12.3); Monocytes Absolute Auto 1.3 X10*3/uL (0.1-1.2); Monocytes Percent Auto 7.9 % (2-11); Neutrophils Absolute Auto 13.8 x10*3/uL (2.0-8.3); Neutrophils Percent Auto 84.8 % (45-73); Platelet Count 498 X10*3/uL (160-400); Red Blood Count 3.75 X10*6/uL (4.20-5.50); Red Cell Distribution Width 16.5 % (11.0-16.0); White Blood Count 16.3 X10*3/uL (4.8-10.8)
--- NOTE | 2022-10-09 10:45 | PC.NURSE ---
Patient to x ray daughter and at bedside IVP pain medication admin patient tolerated well, swelling noted to left upper thigh pain with manipulation palpation will CTM
[2022-10-09 10:46] LABS: COVID-19 Test Negative (Negative); IDNOW Serial# 9DB6401D
[2022-10-09 10:47] LABS: INTERNATIONAL NORM RATIO 0.9 (0.9-1.1); Prothrombin Time 10.8 SEC (10.0-13.1)
[2022-10-09 10:49] LABS: Alanine Aminotransferase 13 U/L (0-31); Alkaline Phosphatase 96 U/L (39-117); Anion Gap 18 (12-20); Aspartate Amino Transferase 23 U/L (5-31); Bilirubin Total 0.5 mg/dL (0.0-1.0); Blood Urea Nitrogen 19 mg/dL (9-16); Calcium 9.7 mg/dL (8.4-10.2); Carbon Dioxide 24 mmol/L (22-29); Chloride 103 mmol/L (96-108); Creatinine Clr Calc Pharmacy 29.6; Estimated Glomerular Filt Rate 59; Glucose Random 121 mg/dL (60-115); Potassium 3.6 mmol/L (3.3-5.1); Sodium 141 mmol/L (135-145)
--- NOTE | 2022-10-09 11:06 | ED_ITS ---
HPI - Extremity Injury (Lower) General Chief Complaint: Extremity Injury, Lower Stated Complaint: FALL/L HIP PAIN Time Seen by Provider: 10/09/22 09:58 Source: patient and family Mode of arrival: EMS History of Present Illness HPI Narrative: 82-year-old female who is brought in by EMS after she was heard to fall in the bathroom with inability to get up and findings by the family concerning for possible hip fracture. Patient is not moving at this time and reports minimal pain. Related Data Home Medications Medication Instructions Recorded Confirmed acetaminophen 325 mg tablet 650 mg PO Q6H PRN pain 07/13/22 08/26/22 docusate sodium 50 mg capsule 50 mg PO BID 07/13/22 08/26/22 memantine 5 mg tablet 5 mg PO DAILY 07/13/22 08/26/22 Previous Rx's Medication Instructions Recorded amlodipine 10 mg tablet 10 mg PO DAILY #90 tabs 06/02/22 potassium chloride 20 mEq 20 meq PO DAILY #5 tabs 06/29/22 tablet,extended release(part/cryst) metoprolol succinate 25 mg 25 mg PO DAILY #90 tabs 08/26/22 tablet,extended release 24 hr Allergies Allergy/AdvReac Type Severity Reaction Status Date / Time No Known Allergies Allergy Verified 08/26/22 11:39 Review of Systems Review of Systems: Pertinent positives and negatives as stated in HPI PMFSH Past Medical History Source: nursing notes reviewed Medical History Fracture of left hip Hypertension Surgical History History of tonsillectomy History of total abdominal hysterectomy and bilateral salpingo-oophorectomy Family History Family History Father CAD (coronary artery disease) Mother No problems noted. Sister Breast cancer Maternal Grandmother No problems noted. Maternal Grandfather No problems noted. Paternal Grandmother No problems noted. Paternal Grandfather No problems noted. Social History Social History Household Members: Spouse Housing: House Do you presently have visiting nurse or other home services: No Unable to assess alcohol history related to: Refusing to respond Alcohol intake: unknown Patient Tobacco Use Status: Tobacco use Unknown Tobacco use type: Cigarette Smoked in Last 30 Days: No e-Cigarette/Vaping Use: Never Used Second Hand Smoke Exposure: No Use of substances other than those prescribed or required for medical reasons: Unknown Advance Directives: Yes Advance Directives on File: Yes Advance Directives Date on File: 06/26/22 service: No Current occupational status: retired Cognitive needs: No Hearing needs: No Vision needs: Yes (glasses) Physical Exam Vital Signs: Vital Signs: Last Vital Signs Temp 98.4 F 10/09/22 14:16 Pulse 136 H 10/09/22 14:16 Resp 16 10/09/22 14:16 BP 172/86 H 10/09/22 14:16 Pulse Ox 95 10/09/22 14:16 O2 Del Method 10/09/22 14:16 BMI result Body Mass Index 15.4 VITAL SIGNS: Reviewed. GENERAL: elderly, fragile appearing, in mild distress. HEAD: Normocephalic/atraumatic EYES: PERRLA, EOMI NECK: Supple, no adenopathy LUNGS: Normal breath sounds. No adventitious sounds or accessory muscle use. SpO2<99> CARDIOVASCULAR: Regular rate and rhythm without noted murmurs ABDOMEN: Soft, non-tender, non-distended with bowel sounds. PELVIS: there is noted external rotation and shortening of the left lower extremity with pain on palpation over the greater trochanter, obvious deformity at mid femur MUSCULOSKELETAL: No tenderness, deformities, or effusions noted on gross inspection. EXTREMITIES: No cyanosis, clubbing or edema. SKIN: Inspection of the skin reveals no rashes NEUROLOGIC: Alert and oriented x 4. Strength and sensation to light touch were grossly intact x 4. Medications Administered Discontinued Medications Generic Name Dose Route Start Last Admin Trade Name Freq PRN Reason Stop Dose Admin Amlodipine Besylate 10 mg 10/09/22 12:58 10/09/22 13:10 Amlodipine Besylate 10 Mg Tablet PO 10/09/22 12:59 10 mg ONCE ONE Administration Protocol Fentanyl 25 mcg 10/09/22 10:34 10/09/22 10:38 Fentanyl Citrate/Pf 100 Mcg/2 Ml Vial IVPUSH 10/09/22 10:35 25 mcg ONCE ONE Administration Protocol Fentanyl 25 mcg 10/09/22 12:30 10/09/22 12:32 Fentanyl Citrate/Pf 100 Mcg/2 Ml Vial IVPUSH 10/09/22 12:31 25 mcg ONCE ONE Administration Protocol Ceftriaxone Sodium 1 gm/ 50 mls @ 100 mls/hr 10/09/22 12:06 10/09/22 13:09 Sodium Chloride IV 10/09/22 12:35 Infused ONCE ONE Infusion Labetalol HCl 2.5 mg 10/09/22 12:58 10/09/22 13:10 Labetalol Hcl 100 Mg/20 Ml Vial IVPUSH 10/09/22 12:59 2.5 mg ONCE ONE Administration Metoprolol Succinate 25 mg 10/09/22 13:15 10/09/22 13:10 Metoprolol Succinate Er 25 Mg Tab.Er.24h PO 10/09/22 13:16 25 mg ONCE ONE Administration Protocol Metoprolol Tartrate 5 mg 10/09/22 14:17 10/09/22 14:25 Metoprolol Tartrate 5 Mg/5 Ml Vial IVPUSH 10/09/22 14:18 5 mg ONCE ONE Administration Medical Decision Making Medical Decision Making MDM Narrative: 82-year-old female with history and clinical presentation suggestive most likely fracture but possibility of dislocation, neurovascular is intact with good palpable DP/PT, foot is warm. Patient received IV fentanyl. 1053: Although over by technology applications teacher and there is obvious spiral fracture along the proximal portion of the prosthetic on viewing the distal femur imaging there does not appear to be any further fracture. 1103: Paged orthopedic mid-level provider, in the meantime patient has received pain medication, will type and screen, and place Castrejon catheter. 1121: Dr. Fall is at bedside. 1135: I discussed the case with Dr. Fall who recommends transfer due to the complexity of the repair and available resources. Recommendation is for [facility] 1140: Called [facility] transfer center. Discussed with the family at bedside, informed them of the current fracture and recommendations at this time. They are agreeable for transfer. Patient currently has 0/10 pain. 1145: [facility] has declined transfer at this time. They are willing to re-evaluate tomorrow 1207: Suspect infection, lactic acid / blood cultures/antibiotics ordered 1259: Informed by nursing that patient is hypertensive as well as tachycardic and this is not secondary to pain, patient did not take morning medications. Will order 2.5 mg of labetalol to treat the blood pressure in the short-term and otherwise order patient's regularly scheduled daily medications of 10 mg Norvasc and 25 mg Lopressor. 1418: Official CT scans of head and neck reviewed without acute pathology 1420: Call out to [facility], Images transferr 1427: [facility] accepts transfer to the ER under Dr. Green, Dr. Fall and family notified. 1435: Normal saline, 1 L ordered / dilaudid / 5 mg Lopressor. 1445: Setting up transport Differential Diagnosis Please see the discussion above Consult Healthcare Provider Management of the patient was discussed with: Apprentice Funeral Director 1103: Orthopedic Surgery 1147: Spoke with [facility] who declines transfer at this time. Lab Data Please see the discussion above 10/09/22 10:19 10/09/22 10:19 Labs: Lab Results 10/09/22 10/09/22 10/09/22 Range/Units 10:19 10:19 10:19 WBC 16.3 H (4.8-10.8) X10*3/uL RBC 3.75 L (4.20-5.50) X10*6/uL Hgb 8.0 L (12.0-16.0) g/dl Hct 27.1 L (37.0-47.0) % MCV 72.3 L (80.0-98.0) fL MCH 21.3 L (27.0-33.0) pg MCHC 29.5 L (31.0-35.0) g/dl RDW 16.5 H (11.0-16.0) % Plt Count 498 H (160-400) X10*3/uL MPV 10.7 (9.4-12.3) fL Immature Gran % (Auto) 0.5 H (0.0-0.4) % Neut % (Auto) 84.8 H (45-73) % Lymph % (Auto) 6.2 L (20-40) % [place] % (Auto) 7.9 (2-11) % Eos % (Auto) 0.3 (0-4) % Baso % (Auto) 0.3 (0-2) % Lymph # (Auto) 1.0 L (1.2-4.9) X10*3/uL [place] # (Auto) 1.3 H (0.1-1.2) X10*3/uL Eos # (Auto) 0.1 (0.0-0.4) X10*3/uL Baso # (Auto) 0.1 (0.0-0.2) X10*3/uL Abs Immat Gran (auto) 0.08 H (0.00-0.03) X10*3/uL Absolute Neuts (auto) 13.8 H (2.0-8.3) x10*3/uL Absolute Nucleated RBC 0.000 (0.0-0.012) X10*3/uL Nucleated RBC % (auto) 0.0 (0.0-0.2) /100WBC PT (10.0-13.1) SEC INR (0.9-1.1) Sodium 141 (135-145) mmol/L Potassium 3.6 (3.3-5.1) mmol/L Chloride 103 (96-108) mmol/L Carbon Dioxide 24 (22-29) mmol/L Anion Gap 18 (12-20) BUN 19 H (9-16) mg/dL Creatinine 0.91 (0.5-1.4) mg/dL Estim Creat Clear Calc 29.6 Estimated GFR 59 Random Glucose 121 H (60-115) mg/dL Lactic Acid (0.5-2.0) mmol/L Calcium 9.7 D (8.4-10.2) mg/dL Total Bilirubin 0.5 (0.0-1.0) mg/dL AST 23 (5-31) U/L ALT 13 (0-31) U/L Alkaline Phosphatase 96 (39-117) U/L Total Protein 7.0 (6.5-8.0) g/dL Albumin 4.0 (3.5-5.0) g/dL Urine Color Urine Appearance Urine pH (5.0-9.0) Ur Specific [place] (1.005-1.025) Urine Protein (Neg-Trace) mg/dL Urine Glucose (UA) (Negative) mg/dL Urine Ketones (Negative) mg/dL Urine Blood (Negative) Urine Nitrite (Negative) Ur Leukocyte Esterase (Negative) Urine RBC (0-2) /HPF Urine WBC (0-5) /HPF Ur Squamous Epith Cells (0-2) /HPF Urine Bacteria (None Seen) Hyaline Casts (0-2) /LPF COVID-19 (JULIUS) Negative (Negative) COVID-19 Clin Com See Note Blood Type Antibody Screen 10/09/22 10/09/22 10/09/22 Range/Units 10:19 11:47 12:23 WBC (4.8-10.8) X10*3/uL RBC (4.20-5.50) X10*6/uL Hgb (12.0-16.0) g/dl Hct (37.0-47.0) % MCV (80.0-98.0) fL MCH (27.0-33.0) pg MCHC (31.0-35.0) g/dl RDW (11.0-16.0) % Plt Count (160-400) X10*3/uL MPV (9.4-12.3) fL Immature Gran % (Auto) (0.0-0.4) % Neut % (Auto) (45-73) % Lymph % (Auto) (20-40) % [place] % (Auto) (2-11) % Eos % (Auto) (0-4) % Baso % (Auto) (0-2) % Lymph # (Auto) (1.2-4.9) X10*3/uL [place] # (Auto) (0.1-1.2) X10*3/uL Eos # (Auto) (0.0-0.4) X10*3/uL Baso # (Auto) (0.0-0.2) X10*3/uL Abs Immat Gran (auto) (0.00-0.03) X10*3/uL Absolute Neuts (auto) (2.0-8.3) x10*3/uL Absolute Nucleated RBC (0.0-0.012) X10*3/uL Nucleated RBC % (auto) (0.0-0.2) /100WBC PT 10.8 (10.0-13.1) SEC INR 0.9 (0.9-1.1) Sodium (135-145) mmol/L Potassium (3.3-5.1) mmol/L Chloride (96-108) mmol/L Carbon Dioxide (22-29) mmol/L Anion Gap (12-20) BUN (9-16) mg/dL Creatinine (0.5-1.4) mg/dL Estim Creat Clear Calc Estimated GFR Random Glucose (60-115) mg/dL Lactic Acid 1.2 (0.5-2.0) mmol/L Calcium (8.4-10.2) mg/dL Total Bilirubin (0.0-1.0) mg/dL AST (5-31) U/L ALT (0-31) U/L Alkaline Phosphatase (39-117) U/L Total Protein (6.5-8.0) g/dL Albumin (3.5-5.0) g/dL Urine Color Yellow Urine Appearance Cloudy Urine pH 8.5 (5.0-9.0) Ur Specific [place] 1.010 (1.005-1.025) Urine Protein Trace (Neg-Trace) mg/dL Urine Glucose (UA) Negative (Negative) mg/dL Urine Ketones 15 (Negative) mg/dL Urine Blood Negative (Negative) Urine Nitrite Positive H (Negative) Ur Leukocyte Esterase Trace H (Negative) Urine RBC 0-2 (0-2) /HPF Urine WBC 6-10 H (0-5) /HPF Ur Squamous Epith Cells 0-2 (0-2) /HPF Urine Bacteria 4+ (None Seen) Hyaline Casts 0-2 (0-2) /LPF COVID-19 (JULIUS) (Negative) COVID-19 Clin Com Blood Type Antibody Screen 10/09/22 Range/Units 12:23 WBC (4.8-10.8) X10*3/uL RBC (4.20-5.50) X10*6/uL Hgb (12.0-16.0) g/dl Hct (37.0-47.0) % MCV (80.0-98.0) fL MCH (27.0-33.0) pg MCHC (31.0-35.0) g/dl RDW (11.0-16.0) % Plt Count (160-400) X10*3/uL MPV (9.4-12.3) fL Immature Gran % (Auto) (0.0-0.4) % Neut % (Auto) (45-73) % Lymph % (Auto) (20-40) % [place] % (Auto) (2-11) % Eos % (Auto) (0-4) % Baso % (Auto) (0-2) % Lymph # (Auto) (1.2-4.9) X10*3/uL [place] # (Auto) (0.1-1.2) X10*3/uL Eos # (Auto) (0.0-0.4) X10*3/uL Baso # (Auto) (0.0-0.2) X10*3/uL Abs Immat Gran (auto) (0.00-0.03) X10*3/uL Absolute Neuts (auto) (2.0-8.3) x10*3/uL Absolute Nucleated RBC (0.0-0.012) X10*3/uL Nucleated RBC % (auto) (0.0-0.2) /100WBC PT (10.0-13.1) SEC INR (0.9-1.1) Sodium (135-145) mmol/L Potassium (3.3-5.1) mmol/L Chloride (96-108) mmol/L Carbon Dioxide (22-29) mmol/L Anion Gap (12-20) BUN (9-16) mg/dL Creatinine (0.5-1.4) mg/dL Estim Creat Clear Calc Estimated GFR Random Glucose (60-115) mg/dL Lactic Acid (0.5-2.0) mmol/L Calcium (8.4-10.2) mg/dL Total Bilirubin (0.0-1.0) mg/dL AST (5-31) U/L ALT (0-31) U/L Alkaline Phosphatase (39-117) U/L Total Protein (6.5-8.0) g/dL Albumin (3.5-5.0) g/dL Urine Color Urine Appearance Urine pH (5.0-9.0) Ur Specific [place] (1.005-1.025) Urine Protein (Neg-Trace) mg/dL Urine Glucose (UA) (Negative) mg/dL Urine Ketones (Negative) mg/dL Urine Blood (Negative) Urine Nitrite (Negative) Ur Leukocyte Esterase (Negative) Urine RBC (0-2) /HPF Urine WBC (0-5) /HPF Ur Squamous Epith Cells (0-2) /HPF Urine Bacteria (None Seen) Hyaline Casts (0-2) /LPF COVID-19 (JULIUS) (Negative) COVID-19 Clin Com Blood Type A Positive Antibody Screen NEGATIVE Independent Interpretation I performed an independent interpretation of an: EKG Interpretation: Sinus tachycardia with PACs, HR- 119, no STEMI, TX /QRS / QTC is within normal limits. Radiology Impression Radiologist Impression: My interpretation is in agreement with radiology's impression of the imaging studies. External Record Review External record reviewed: Outpatient record and Prior outpatient labs Chronic Conditions Patient?s care impacted by: Hypertension Critical Care Time Critical Care Time Critical Care Time: Yes Total Critical Care Time: 45 Attestation: I personally attest to this time spent taking care of the patient. Discharge Plan Discharge Clinical Impression: Trauma, Periprosthetic fracture of proximal end of femur Patient Disposition: Xfer [facility] Transfer Details: complex traumatic periprosthetic left femur fracture Prescriptions: No Action amlodipine 10 mg tablet 10 mg PO DAILY Qty: 90 8RF potassium chloride 20 mEq Tablet,Er Particles/Crystals 20 meq PO DAILY Qty: 5 0RF memantine 5 mg tablet 5 mg PO DAILY acetaminophen 325 mg tablet 650 mg PO Q6H PRN (Reason: pain) docusate sodium 50 mg capsule 50 mg PO BID metoprolol succinate 25 mg tablet extended release 24 hr 25 mg PO DAILY Qty: 90 5RF
--- NOTE | 2022-10-09 11:39 | PC.NURSE ---
Ortho MD Dr Fall met with patient and family plan discussed 16 belizean indwelling hurtado placed with Rick RN and Daughter at bedside. Clear yellow urine noted
--- NOTE | 2022-10-09 11:43 | MHC.EDTECH ---
@11:42AM DR HANSON REQUESTS CALL OUT TO [facility] ACCESS LINE FOR POSSIBLE TRANSFER OF THIS PT LY ANSWERS, TAKES PT INFO THEN ASKS TO SPEAK WITH DR MARGIE HANSON TAKES OVER CALL RIGHT AWAY
--- NOTE | 2022-10-09 11:47 | PC.NURSE ---
No distress noted denies chest pain or SOB
[2022-10-09 12:00] LABS: Appearance Urine Cloudy; Color Urine Yellow; Glucose Urine UA Negative (Negative); Leukocyte Esterase Urine Trace (Negative); Nitrite Urine Positive (Negative); PH 8.5 (5.0-9.0); UMIC TRIGGER UACC YES; Urine Blood Negative (Negative); Urine Ketones 15 mg/dL (Negative); Urine Protein Trace mg/dL (Neg-Trace)
[2022-10-09 12:02] LABS: Bacteria Urine 4+ (None Seen); Hyaline Casts Urine 0-2 /LPF (0-2); RBC Urine 0-2 /HPF (0-2); Squamous Epithelial Cell Urine 0-2 /HPF (0-2); UACC Culture Trigger YES
--- NOTE | 2022-10-09 12:03 | MHC.EDTECH ---
PER DR MARGIE RIZZO DECLINES TRANSFER @ THIS TIME REQUESTS CALL OUT TO [facility]
--- NOTE | 2022-10-09 12:07 | MHC.EDTECH ---
@1204PM DR HANSON REQUESTS CALL OUT TO [facility] PT [place] LINE ROBBY ANSWERS, TAKES PT INFO, THEN ASKS TO SPEAK WITH DR MARGIE HANSON TAKES OVER CALL
[2022-10-09] MEDS: cefTRIAXone sodium 1 GM in 0.9 % Sodium Chloride 50 ML IV (12:27)
[2022-10-09 12:43] LABS: Lactic Acid 1.2 mmol/L (0.5-2.0)
--- NOTE | 2022-10-09 12:43 | PC.NURSE ---
Patietn to CT
--- NOTE | 2022-10-09 12:55 | PC.NURSE ---
Patient did not take am meds today MD aware tolerating IV ABX
[2022-10-09] MEDS: Metoprolol Succinate ER 25 MG TAB.ER.24H PO (13:10)
[2022-10-09] MEDS: amLODIPine Besylate 10 MG TABLET PO (13:10)
[2022-10-09] MEDS: Labetalol HCL 100 MG/20 ML VIAL IVPUSH (13:10)
--- NOTE | 2022-10-09 14:22 | MHC.EDTECH ---
@[id number] CALL [address] TO [facility] [place] LINE @ DR HANSON REQUEST MARIA D ANSWERS, TAKES PT INFO, THEN ASKS TO SPEAK WITH DR MARGIE HANSON TAKES OVER CALL RIGHT AWAY
[2022-10-09] MEDS: Metoprolol Tartrate 5 MG/5 ML VIAL IVPUSH (14:25)
[2022-10-09] MEDS: HYDROmorphone HCl 0.5 MG/0.5 ML SYRINGE 0.25 MG IVPUSH (14:44)
[2022-10-09] MEDS: 0.9 % Sodium Chloride 500 ML 999 ML IV (14:45)
--- NOTE | 2022-10-09 14:52 | PC.NURSE ---
Zoila KEARNS [facility] triage line took report on patint will prepare for transfer.
--- NOTE | 2022-10-09 15:17 | PC.NURSE ---
Patient Sinus tach on laboratory monitor family and patient advised to keep monitor and blood pressure cuff and SPO2 monitor on will prepare for transfer.
--- NOTE | 2022-10-09 15:27 | PC.NURSE ---
Report to EMS
== END 2022-10-09 15:35 | disposition short-term general hospital (02) ==
PROVIDERS: Emergency Provider Student in an Organized Health Care Education/Training Program; PCP Internal Medicine
DX: S72.92XA Unspecified fracture of left femur, initial encounter for closed fracture (principal); M25.552 Pain in left hip; R51.9 Headache, unspecified; M54.2 Cervicalgia; M79.605 Pain in left leg; R42 Dizziness and giddiness; R00.0 Tachycardia, unspecified; W01.10XA Fall on same level from slipping, tripping and stumbling with subsequent striking against unspecified object, initial encounter; Y93.9 Activity, unspecified; Y92.002 Bathroom of unspecified non-institutional (private) residence as the place of occurrence of the external cause; Y99.9 Unspecified external cause status; Z20.822 Contact with and (suspected) exposure to COVID-19; Z20.828 Contact with and (suspected) exposure to other viral communicable diseases; Z79.899 Other long term (current) drug therapy
CPT/HCPCS: 36415; 51702; 70450; 72125; 72170; 73552; 80053; 81001; 81003; 83605; 85025; 85610; 86850; 86900; 86901; 87040; 87086; 87088; 87186; 87635; 93005; 96361; 96374; 96375; 96376; 99285; J0696; J1170; J3010

== ENCOUNTER 2023-02-16 13:10 | Observation (INO) | payer MEDICARE, SELFPAY ==
[2023-02-16] VITALS (11 sets, daily range): BP systolic 84–206; BP diastolic 51–115; PULSE 71–140; RESP 16–20; TEMP 36.4–36.8; O2SAT 97–100; BMI 13.3
--- NOTE | ~2023-02-16 | XR_ITS ---
EXAMINATION: XR CHEST CLINICAL INFORMATION: Chest pain. COMPARISON: June 25, 2022. TECHNIQUE: Portable AP view of the chest was obtained. XR/XR chest 1V FINDINGS/IMPRESSION: There is no acute radiographic finding. There has been no significant radiographic change compared with June 25, 2022. No focal infiltrate, effusion, pneumothorax is seen. The heart appears normal in size. The aorta is mildly atherosclerotic. There are mild degenerative changes of the spine, with S-shaped spinal curvature.
--- NOTE | 2023-02-16 13:12 | ECG_ITS ---
Test Reason : SYNCOPE Blood Pressure : / mmHG Vent. Rate : 119 BPM Atrial Rate : 119 BPM P-R Int : 150 ms QRS Dur : 072 ms QT Int : 338 ms P-R-T Axes : 089 065 092 degrees QTc Int : 475 ms Sinus tachycardia Biatrial enlargement Left ventricular hypertrophy ( Sokolow-Guevara , Romhilt-Haas ) Nonspecific ST and T wave abnormality Abnormal ECG When compared with ECG of 09-OCT-2022 10:26, Premature atrial complexes are no longer Present Nonspecific T wave abnormality now evident in Lateral leads Referred By: Generic ED Physician Electronically Signed By:Mauro Dewey
--- NOTE | 2023-02-16 13:44 | ED_ITS ---
HPI - General Adult General Chief complaint: Syncope Stated complaint: syncope Time Seen by Provider: 02/16/23 13:27 Source: patient and family Mode of arrival: ambulatory Limitations: no limitations History of Present Illness HPI narrative: This is an 82 years old female with history of cognitive decline, history of hip fracture history of hypertension presented to the emergency department complaining of multiple syncopal episode. Last 1one was this morning. Patient is also losing weight at least 30 lb month. There is no fever and chills no vomiting Onset (ago): week(s) Location: head Radiation: non-radiation Quality: burning Related Data Home Medications Medication Instructions Recorded Confirmed docusate sodium 100 mg capsule 100 mg PO DAILY PRN Constipation 02/16/23 02/16/23 (Colace) memantine 10 mg tablet 10 mg PO BID 02/16/23 02/16/23 multivitamin 1 tab PO DAILY 02/16/23 02/16/23 Previous Rx's Medication Instructions Recorded hydrochlorothiazide 25 mg tablet 25 mg PO DAILY #90 tabs 01/30/23 Allergies Allergy/AdvReac Type Severity Reaction Status Date / Time No Known Allergies Allergy Verified 02/16/23 13:23 Review of Systems Constitutional: Constitutional: Reports no additional constitutional complaints ENT: Reports system reviewed and no additional complaints, except as documented Cardiovascular: Cardiovascular: Reports no additional cardiovascular complain ts and Reports lightheadedness PMFSH Past Medical History Medical History Fracture of left hip Hypertension Surgical History History of tonsillectomy History of total abdominal hysterectomy and bilateral salpingo-oophorectomy Family History Family History Father CAD (coronary artery disease) Mother No problems noted. Sister Breast cancer Maternal Grandmother No problems noted. Maternal Grandfather No problems noted. Paternal Grandmother No problems noted. Paternal Grandfather No problems noted. Social History Social History Household Members: Spouse Housing: House Do you presently have visiting nurse or other home services: No Unable to assess alcohol history related to: Refusing to respond Alcohol intake: unknown Patient Tobacco Use Status: Tobacco use Unknown Tobacco use type: Cigarette Smoked in Last 30 Days: No e-Cigarette/Vaping Use: Never Used Second Hand Smoke Exposure: No Use of substances other than those prescribed or required for medical reasons: No Advance Directives: Yes Advance Directives on File: Yes Advance Directives Date on File: 07/01/22 service: No Current occupational status: retired Cognitive needs: No Hearing needs: No Vision needs: Yes (glasses) Physical Exam ED Vital Signs: Vital Signs - 24 hr 02/16/23 13:34 02/16/23 13:42 02/16/23 13:44 Temperature 98.1 F Pulse Rate 126 H 119 H 140 H Respiratory Rate 16 Blood Pressure 206/115 H 173/96 H 98/60 Pulse Oximetry 98 Oxygen Delivery Method Room Air 02/16/23 13:52 02/16/23 14:45 02/16/23 14:45 Temperature 97.5 F Pulse Rate 96 109 H Respiratory Rate 18 Blood Pressure 84/51 L Pulse Oximetry 97 97 Oxygen Delivery Method Room Air Room Air 02/16/23 14:54 Temperature Pulse Rate Respiratory Rate Blood Pressure 175/91 H Pulse Oximetry Oxygen Delivery Method BMI result Body Mass Index 13.3 Const General: cooperative Nutritional Appearance: average body habitus Orientation/consciousness: patient oriented x3 Limitations: no limitations HENMT Head: Yes normal to inspection General nose exam: Normal external nose present Face and sinus: Yes normal facial exam Throat: Yes posterior oropharynx normal Neck Neck: Yes normal visual inspection Chest Chest palpation & inspection: normal inspection of the chest Resp Effort & Inspection: normal respiratory effort Auscultation: clear to auscultation bilaterally Cardio Jugular venous distension: no JVD Rate: regular rate and tachycardic Rhythm: regular rhythm GI Inspection: Yes normal to inspection Auscultation: normal bowel sounds Neuro General: patient oriented x3 Cranial nerves: Yes CN's II-XII intact bilaterally Motor exam (neuro): 5/5 motor strength present throughout Course Reevaluation(s) Reevaluation #1: labs reviewed with daughter who is RN, elevated tropi,elevated calcium at this point will admit d/w hospitalist Time: 15:07 Medications Administered Discontinued Medications Generic Name Dose Route Start Last Admin Trade Name Freq PRN Reason Stop Dose Admin Sodium Chloride 500 mls @ 500 mls/hr 02/16/23 14:15 02/16/23 14:31 Ns IV 02/16/23 15:14 500 mls/hr .Q1H LIAM Administration Medical Decision Making Lab Data 02/16/23 14:06 02/16/23 14:06 Labs: Lab Results 02/16/23 02/16/23 02/16/23 Range/Units 14:06 14:06 14:06 WBC (4.8-10.8) X10*3/uL RBC (4.20-5.50) X10*6/uL Hgb (12.0-16.0) g/dl Hct (37.0-47.0) % MCV (80.0-98.0) fL MCH (27.0-33.0) pg MCHC (31.0-35.0) g/dl RDW (11.0-16.0) % Plt Count (160-400) X10*3/uL MPV (9.4-12.3) fL Immature Gran % (Auto) (0.0-0.4) % Neut % (Auto) (45-73) % Lymph % (Auto) (20-40) % [place]ville % (Auto) (2-11) % Eos % (Auto) (0-4) % Baso % (Auto) (0-2) % Lymph # (Auto) (1.2-4.9) X10*3/uL [place]ville # (Auto) (0.1-1.2) X10*3/uL Eos # (Auto) (0.0-0.4) X10*3/uL Baso # (Auto) (0.0-0.2) X10*3/uL Abs Immat Gran (auto) (0.00-0.03) X10*3/uL Absolute Neuts (auto) (2.0-8.3) x10*3/uL Absolute Nucleated RBC (0.0-0.012) X10*3/uL Nucleated RBC % (auto) (0.0-0.2) /100WBC Sodium 140 141 (135-145) mmol/L Potassium 3.5 3.5 (3.3-5.1) mmol/L Chloride 94 L 94 L (96-108) mmol/L Carbon Dioxide 34 H 33 H (22-29) mmol/L Anion Gap 16 18 (12-20) BUN 30 H 30 H (9-16) mg/dL Creatinine 1.24 1.26 (0.5-1.4) mg/dL Estim Creat Clear Calc 17.5 17.3 Estimated GFR 41 40 Random Glucose 120 H 121 H (60-115) mg/dL Calcium 11.1 H D 10.9 H (8.4-10.2) mg/dL Total Bilirubin 0.5 (0.0-1.0) mg/dL AST 25 (5-31) U/L ALT 20 (0-31) U/L Alkaline Phosphatase 119 H (39-117) U/L Troponin I High Sens 92.3 H* (<3.5-17.0) ng/L Total Protein 7.8 (6.5-8.0) g/dL Albumin 4.5 (3.5-5.0) g/dL 02/16/23 Range/Units 14:06 WBC 9.6 (4.8-10.8) X10*3/uL RBC 4.54 D (4.20-5.50) X10*6/uL Hgb 12.6 D (12.0-16.0) g/dl Hct 39.5 D (37.0-47.0) % MCV 87.0 (80.0-98.0) fL MCH 27.8 (27.0-33.0) pg MCHC 31.9 (31.0-35.0) g/dl RDW 13.1 (11.0-16.0) % Plt Count 349 D (160-400) X10*3/uL MPV 10.7 (9.4-12.3) fL Immature Gran % (Auto) 0.4 (0.0-0.4) % Neut % (Auto) 81.6 H (45-73) % Lymph % (Auto) 9.3 L (20-40) % Granville % (Auto) 7.5 (2-11) % Eos % (Auto) 0.6 (0-4) % Baso % (Auto) 0.6 (0-2) % Lymph # (Auto) 0.9 L (1.2-4.9) X10*3/uL Granville # (Auto) 0.7 (0.1-1.2) X10*3/uL Eos # (Auto) 0.1 (0.0-0.4) X10*3/uL Baso # (Auto) 0.1 (0.0-0.2) X10*3/uL Abs Immat Gran (auto) 0.04 H (0.00-0.03) X10*3/uL Absolute Neuts (auto) 7.8 (2.0-8.3) x10*3/uL Absolute Nucleated RBC 0.000 (0.0-0.012) X10*3/uL Nucleated RBC % (auto) 0.0 (0.0-0.2) /100WBC Sodium (135-145) mmol/L Potassium (3.3-5.1) mmol/L Chloride (96-108) mmol/L Carbon Dioxide (22-29) mmol/L Anion Gap (12-20) BUN (9-16) mg/dL Creatinine (0.5-1.4) mg/dL Estim Creat Clear Calc Estimated GFR Random Glucose (60-115) mg/dL Calcium (8.4-10.2) mg/dL Total Bilirubin (0.0-1.0) mg/dL AST (5-31) U/L ALT (0-31) U/L Alkaline Phosphatase (39-117) U/L Troponin I High Sens (<3.5-17.0) ng/L Total Protein (6.5-8.0) g/dL Albumin (3.5-5.0) g/dL Independent Interpretation I performed an independent interpretation of an: EKG Interpretation: Sinus tachycardia rate 119 ST-T changes Critical Care Time Critical Care Time Total Critical Care Time: 30 Attestation: elevated ,tropi elevated Bp then low BP Discharge Plan Discharge Clinical Impression: Syncope, Elevated troponin, Hypercalcemia Patient Disposition: Admitted As Inpatient
[2023-02-16 14:12] LABS: MANUAL DIFF FLAG NO
[2023-02-16 14:15] LABS: Basophils Absolute Auto 0.1 X10*3/uL (0.0-0.2); Basophils Percent Auto 0.6 % (0-2); Eosinophils Absolute Auto 0.1 X10*3/uL (0.0-0.4); Eosinophils Percent Auto 0.6 % (0-4); Hematocrit 39.5 % (37.0-47.0); Hemoglobin 12.6 g/dl (12.0-16.0); Imm Gran Abs Auto 0.04 X10*3/uL (0.00-0.03); Imm Gran Pct Auto 0.4 % (0.0-0.4); Lymphocytes Absolute Auto 0.9 X10*3/uL (1.2-4.9); Lymphocytes Percent Auto 9.3 % (20-40); Mean Corpuscular HGB Conc 31.9 g/dl (31.0-35.0); Mean Corpuscular Hemoglobin 27.8 pg (27.0-33.0); Mean Platelet Volume 10.7 fL (9.4-12.3); Monocytes Absolute Auto 0.7 X10*3/uL (0.1-1.2); Monocytes Percent Auto 7.5 % (2-11); Neutrophils Absolute Auto 7.8 x10*3/uL (2.0-8.3); Neutrophils Percent Auto 81.6 % (45-73); Platelet Count 349 X10*3/uL (160-400); Red Blood Count 4.54 X10*6/uL (4.20-5.50); Red Cell Distribution Width 13.1 % (11.0-16.0); White Blood Count 9.6 X10*3/uL (4.8-10.8)
[2023-02-16 14:29] LABS: Anion Gap 16 (12-20); Blood Urea Nitrogen 30 mg/dL (9-16); Calcium 11.1 mg/dL (8.4-10.2); Carbon Dioxide 34 mmol/L (22-29); Chloride 94 mmol/L (96-108); Creatinine Clr Calc Pharmacy 17.5; Estimated Glomerular Filt Rate 41; Glucose Random 120 mg/dL (60-115); Potassium 3.5 mmol/L (3.3-5.1); Sodium 140 mmol/L (135-145)
[2023-02-16 14:30] LABS: Alanine Aminotransferase 20 U/L (0-31); Albumin Level 4.5 g/dL (3.5-5.0); Alkaline Phosphatase 119 U/L (39-117); Anion Gap 18 (12-20); Aspartate Amino Transferase 25 U/L (5-31); Bilirubin Total 0.5 mg/dL (0.0-1.0); Blood Urea Nitrogen 30 mg/dL (9-16); Calcium 10.9 mg/dL (8.4-10.2); Carbon Dioxide 33 mmol/L (22-29); Chloride 94 mmol/L (96-108); Creatinine Clr Calc Pharmacy 17.3; Estimated Glomerular Filt Rate 40; Glucose Random 121 mg/dL (60-115); Potassium 3.5 mmol/L (3.3-5.1); Sodium 141 mmol/L (135-145); Total Protein 7.8 g/dL (6.5-8.0)
[2023-02-16] MEDS: 0.9 % Sodium Chloride 500 ML IV (14:31)
[2023-02-16 14:42] LABS: Troponin-I High Sensitivity 92.3 ng/L (<3.5-17.0)
--- NOTE | 2023-02-16 14:56 | PC.NURSE ---
resting in bed. no complaints. bolus running. no syncope at this time.
--- NOTE | 2023-02-16 15:25 | PHA.MEDREC ---
Pharmacy Consult ? Medication Reconciliation Pharmacy has completed the medication reconciliation. Spoke to patient's family to confirm meds.
--- NOTE | 2023-02-16 16:30 | PM.IMHP ---
History of Present Illness Date of Service: 02/16/23 Attending physician on admission: [facility] Chief Complaint: syncope 82-year-old female with history of hypertension, Alzheimer's dementia presents to the ED with her and daughter for evaluation of recurrent syncope. The patient is a poor historian secondary to her Alzheimer's dementia and her and daughter provide much history. The patient began experiencing falls back in May and again in September, both of which resulted in hip fractures requiring surgical intervention. Over the last month has been experiencing increased frequency syncopal episodes and blood pressures have been tracked on a daily basis with great fluctuation ranging from SBP 200s to 90s, varying day to day. Has been seen by PCP for symptoms and metoprolol and then amlodipine were discontinued but HCTZ was continued. The patient currently has no complaints at this time. Per family, pt has been gradually declining and has noticed significant weight loss of 10-15 pounds over the last few months, patient currently weighs 70pounds. She is eating and drinking without difficulty though does report some decreased appetite. She has been following with Dr. Samuels in neurology and has been taking namenda. She ambulated with a walker at baseline though has required reminders for this. On arrival, pt hypertensive to 206/115, tachycardic to 126, vitals otherwise stable. Orthostatic vitals taken with BP 173/96, HR 119 (laying) --> 98/60, HR 140 (sitting) --> 84/51, HR 96 (standing). Hematology studies unremarkable. Creatinine slightly above baseline at 1.26, BUN 30, Na 141, K 3.5, Cl 94, CO2 33, Ca 10.9. Initial trop 92.3, repeat pending. Chest x-ray negative for any acute cardiopulmonary abnormality. In the ED, given 500 mL IV NS bolus. Review of Systems Review of Systems: Yes Unobtainable due to mental status PMFSH Medical History Alzheimer disease Fracture of left hip Hypertension Family History Father CAD (coronary artery disease) Mother No problems noted. Sister Breast cancer Maternal Grandmother No problems noted. Maternal Grandfather No problems noted. Paternal Grandmother No problems noted. Paternal Grandfather No problems noted. Surgical History History of tonsillectomy History of total abdominal hysterectomy and bilateral salpingo-oophorectomy Social History Household Members: Unknown / Unable to assess Housing: Unknown / Unable to assess Do you presently have visiting nurse or other home services: No Unable to assess alcohol history related to: Refusing to respond Alcohol intake: unknown Patient Tobacco Use Status: Tobacco use Unknown Tobacco use type: Cigarette Smoked in Last 30 Days: No e-Cigarette/Vaping Use: Never Used Second Hand Smoke Exposure: No Use of substances other than those prescribed or required for medical reasons: No Currently Displaying Signs/Symptoms of Drug Intoxication Withdrawal: No Have you been hit, kicked, punched, or otherwise hurt by someone within the past year? If so, by whom?: No Do you feel safe in your current relationship?: Yes Is there a partner from a previous relationship who is making you feel unsafe now?: No Are you made to feel afraid or neglected: No Advance Directives: Yes Advance Directives on File: Yes Advance Directives Date on File: 07/01/22 Do you have thoughts of harming others: None Do you have a plan to hurt others: No Plan Nutrition Risks: Poor intake 0-25% >4 days Patient : No service: No Current occupational status: retired Cognitive needs: No Hearing needs: No Vision needs: Yes (glasses) Meds Allergies Allergy/AdvReac Type Severity Reaction Status Date / Time No Known Allergies Allergy Verified 02/16/23 13:23 Active Medications: Current Medications Acetaminophen (Acetaminophen 325 Mg Tablet) 650 mg PO Q6H PRN PRN Reason: Pain, Mild (Pain Scale 1-3) Docusate Sodium (Docusate Sodium 100 Mg Capsule) 100 mg PO DAILY PRN PRN Reason: Constipation Enoxaparin Sodium (Enoxaparin Sodium 30 Mg/0.3 Ml Syringe) 30 mg SUBCUT Q24H LIAM Sodium Chloride (Ns) 1,000 mls @ 100 mls/hr IVCONT .Q10H LIAM Memantine (Memantine Hcl 10 Mg Tablet) 10 mg PO BID LIAM Multivitamins/Vitamin C (Multivitamin Tablet) 1 tab PO DAILY [facility] Ondansetron HCl (Ondansetron Hcl 4 Mg/2 Ml Vial) 4 mg IVPUSH Q8H PRN PRN Reason: Nausea and Vomiting Sodium Chloride (0.9 % Sodium Chloride Flush 3 Ml Syringe) 3 ml IVFLUSH QSHIFT [facility] Home Medications Medication Instructions Recorded Confirmed Last Taken Type docusate sodium 100 mg capsule 100 mg PO DAILY PRN Constipation 02/16/23 02/16/23 Unknown History (Colace) memantine 10 mg tablet 10 mg PO BID 02/16/23 02/16/23 02/16/23 09:00 History multivitamin 1 tab PO DAILY 02/16/23 02/16/23 02/16/23 09:00 History Physical Exam Vital Signs and Narrative: Vital Signs: Last Vital Signs Temp 97.5 F 02/16/23 14:45 Pulse 109 H 02/16/23 14:45 Resp 18 02/16/23 14:45 BP 175/91 H 02/16/23 14:54 Pulse Ox 97 02/16/23 14:45 O2 Del Method Room Air 02/16/23 14:45 BMI result Body Mass Index 13.3 Constitutional - Awake and Alert, No apparent distress Eyes - PERRLA, EOMI Cardiovascular - S1S2, RRR, No edema Respiratory - Normal lung expansion, Normal respiratory effort, No respiratory distress, CTA bilaterally Gastrointestinal - NT / ND; +BS; No rebound or guarding Extremities - no calf tenderness bilaterally, no swelling Skin - Warm/Dry Neurological - Alert & oriented to self, CN II-XII in tact, 5/5 strength BUE and BLE Results Labs 02/16/23 14:06 02/16/23 14:06 Labs: Laboratory Results - last 24 hr 02/16/23 02/16/23 02/16/23 14:06 14:06 14:06 MCV MCH MCHC RDW Plt Count MPV Immature Gran % (Auto) Neut % (Auto) Lymph % (Auto) Stephenson % (Auto) Eos % (Auto) Baso % (Auto) Lymph # (Auto) Stephen[place] # (Auto) Eos # (Auto) Baso # (Auto) Abs Immat Gran (auto) Absolute Neuts (auto) Absolute Nucleated RBC Nucleated RBC % (auto) Anion Gap 16 18 Estim Creat Clear Calc 17.5 17.3 Estimated GFR 41 40 Random Glucose 120 H 121 H Calcium 11.1 H D 10.9 H Total Bilirubin 0.5 AST 25 ALT 20 Alkaline Phosphatase 119 H Troponin I High Sens 92.3 H* Total Protein 7.8 Albumin 4.5 02/16/23 14:06 MCV 87.0 MCH 27.8 MCHC 31.9 RDW 13.1 Plt Count 349 D MPV 10.7 Immature Gran % (Auto) 0.4 Neut % (Auto) 81.6 H Lymph % (Auto) 9.3 L Stephenson % (Auto) 7.5 Eos % (Auto) 0.6 Baso % (Auto) 0.6 Lymph # (Auto) 0.9 L Stephenson # (Auto) 0.7 Eos # (Auto) 0.1 Baso # (Auto) 0.1 Abs Immat Gran (auto) 0.04 H Absolute Neuts (auto) 7.8 Absolute Nucleated RBC 0.000 Nucleated RBC % (auto) 0.0 Anion Gap Estim Creat Clear Calc Estimated GFR Random Glucose Calcium Total Bilirubin AST ALT Alkaline Phosphatase Troponin I High Sens Total Protein Albumin Imaging Radiologist's Impressions: Impressions Chest X-Ray 02/16/23 14:00 FINDINGS/IMPRESSION: There is no acute radiographic finding. There has been no significant radiographic change compared with June 25, 2022. No focal infiltrate, effusion, pneumothorax is seen. The heart appears normal in size. The aorta is mildly atherosclerotic. There are mild degenerative changes of the spine, with S-shaped spinal curvature. Assessment and Plan (1) Syncope: Status: Acute (2) Orthostatic hypotension: Status: Acute Plan 82-year-old female with history of hypertension, Alzheimer's dementia to be observed for orthostatic syncope. #recurrent orthostatic syncope -likely multifactorial r/t HCTZ and autonomic dysfunction -Given 500ml IV NS bolus, conitnue gentle IVF -Hold hctz -EKG shows sinus tachycardia, rate 119 [address]/T wave abnormality -Occassional PVCs observed on telemetry -Echocardiogram, cardiology consult -Autonomic dysfunction also likely r/t Alzheimer's, neurology consult -Monitor on telemetry #Elevated troponin -Initial 92.3, repeat pending -EKG nonischemic #HTN -as above -Hold HCTZ -Monitor BP #Alzheimer's dementia -continue namenda #Severe malnutrition -Nutrition consult -Ensures TID DVT prophylaxis- renally adjusted lovenox DNR/DNI Time Spent With Patient Time: Total time managing care of this patient today ____ minutes. Quality Stroke Does the patient have a stroke diagnosis?: No VTE Prior VTE?: No VTE Risk Level:: Medical - moderate - high VTE Device Contraindication: Treatment Not Indicated VTE Drug Contraindication: N/A - Med Ordered
[2023-02-16 17:30] LABS: Troponin-I High Sensitivity 109.6 ng/L (<3.5-17.0)
[2023-02-16 17:40] LABS: TSH reflex Free T4 0.79 uIU/mL (0.32-4.0)
[2023-02-16] MEDS: 0.9 % Sodium Chloride 1,000 ML 80 ML IVCONT (18:27)
[2023-02-16] MEDS: Enoxaparin Sodium 30 MG/0.3 ML SYRINGE SUBCUT (18:28)
--- NOTE | 2023-02-16 18:40 | PC.NURSE ---
NS running at 80ml/hr, pt medicated per SEP, pt 2 assist to bedside commode, urinated, cleaned and repositioned back in bed. on standing pt reporting that she was blacking out pt assisted safely back into bed. hx of episodes of orthostatic hypotension. per family pt owns and typically takes pm meds between 5-6pm, pharmacy contacted to re-time medications.
[2023-02-16] MEDS: Docusate Sodium 100 MG CAPSULE PO (18:51)
[2023-02-16] MEDS: Memantine HCl 10 MG TABLET PO (18:52)
--- NOTE | 2023-02-16 18:54 | PC.NURSE ---
pt medicated per SEP. family reporting constipation, medicated w PRN colace.
--- NOTE | 2023-02-16 19:17 | PC.NURSE ---
Addendum entered by Pardeep Flores 02/16/23 19:25: pt takes medications one at a time, whole with liquids. Original Note: per family pt is speedy at getting out of bed, recommending bed alarm with camera and poss 1:1 due to disorientation from dementia, worse at night. family stated that during prior hospital stays seroquel has been used with +ve effect. pt does best with distraction techniques for redirection, discussing pt's overnight stay and contradicting pt often increases anxiety. if needed family is on standby to come stay overnight with pt if unable to settle, available by telephone. pt's primary RN notified.
--- NOTE | 2023-02-16 20:00 | PC.NURSE ---
pt brought up by fellow staff member- remains pleasently confused - per family at bedime . no agitation. moved to hospital bed ahead of time for comfort and bed alarm in place. bp has improved this shift. tolerating po fluids/snack well. PIV remains c/d/i. no distress noted
--- NOTE | 2023-02-16 20:31 | PC.NURSE ---
reports given to layo boucher
--- NOTE | 2023-02-17 | ECG_ITS ---
Test Reason : tachycardia Blood Pressure : / mmHG Vent. Rate : 118 BPM Atrial Rate : 118 BPM P-R Int : 146 ms QRS Dur : 072 ms QT Int : 306 ms P-R-T Axes : 081 054 105 degrees QTc Int : 428 ms Sinus tachycardia with Fusion complexes Biatrial enlargement Abnormal ECG When compared with ECG of 16-FEB-2023 13:34, Fusion complexes are now Present T wave inversion now evident in Anterior leads Referred By: Rafita Neff Electronically Signed By:Mauro Dewey
[2023-02-17] MEDS: OLANZapine 10 MG VIAL 5 MG IM (00:15)
--- NOTE | 2023-02-17 01:09 | PC.NURSE ---
Patient when arrived to [facility] from ED has been alert and oriented x1. Increasingly more restless as shift went on and constantly tried to get out of bed and non redirected. 1:1 patient observer placed with camera at 23:00. MD notifed, Zyprexa 5mg IM ordered and administered. Patient resting in bed, remains intermittently restless.
[2023-02-17 04:00] VITALS: BP 179/91; PULSE 99; RESP 20; TEMP 36.4; O2SAT 99
[2023-02-17 05:22] VITALS: BP 157/76
[2023-02-17] MEDS: Memantine HCl 10 MG TABLET PO ×2 (05:59→17:48)
--- NOTE | 2023-02-17 07:00 | CA_ITS ---
Transthoracic Echocardiogram Patient (Last, First, Middle): Mac Sidhu, Gender: Female Date of : 1940 Age: 82 Procedure Date: 02/17/2023 Procedure Type: Transthoracic Echocardiogram Location[place] [facility] [place] Height: 157.48 cm Weight: 32.66 kg BSA: 1.24 m2 Heart Rate: 90 bpm BP: 142 / 63 mmHg Rescue Worker: SB Referring MD: Annabelle GEE Symptoms: autonomic dysfunction, recurrent syncope Study Quality: Fair apical window/narrow rib spaces ECG Rhythm: Frequent ventricular premature beats Conclusions: - Normal left ventricular size, thickness, systolic function, and wall motion. The visually estimated ejection fraction is between 55-60%. Diastolic function is normal for age. - Normal right ventricular cavity size and systolic function. - There is a normal trileaflet aortic valve. There is mild calcification of the aortic valve. There is mild aortic valve stenosis. There is no aortic valve regurgitation. - The inferior vena cava is normal in size and collapses greater than 50% with inspiration. Findings Procedure Information The quality of the study was technically difficult. The study quality is limited by patients body habitus. Left Ventricle Normal left ventricular size, thickness, systolic function, and wall motion. The visually estimated ejection fraction is between 55-60%. Diastolic function is normal for age. Right Ventricle Normal right ventricular cavity size and systolic function. Atria The left atrium is normal in size. Aortic Valve There is a normal trileaflet aortic valve. There is mild calcification of the aortic valve. There is mild aortic valve stenosis. There is no aortic valve regurgitation. Mitral Valve The mitral valve appears normal. There is trace mitral valve regurgitation. There is no mitral valve stenosis. Pulmonic Valve Normal pulmonic valve structure and function. There is trace pulmonic valve regurgitation. Tricuspid Valve Normal tricuspid valve structure. There is trace tricuspid valve regurgitation. Normal right atrial pressure. There is no evidence of pulmonary hypertension. Great Vessels The visualized portions of the pulmonary artery and branches are normal. Venous The inferior vena cava is normal in size and collapses greater than 50% with inspiration. Pericardium/Pleural There is no evidence of pericardial effusion. Prior Study Comparison No prior study available for comparison. Measurements 2D Linear Measurements IVSd: 0.62 0.6-0.9/0.6-1.0 cm LVIDd: 4.19 3.9-5.3/4.2-5.9 cm LVIDd Index: 3.38 2.4-3.2/2.2-3.1 cm/m2 LVIDs: 3.22 2.0-3.6 cm LVPWd: 0.63 0.7-1.1 cm LA Diam: 3.00 2.7-3.8/3.0-4.0 cm LAIDs Index: 2.42 1.5-2.3 cm/m2 LV Mass: 91.20 67-162/88-224 g LV Mass Index: 73.55 43-95/49-115 g/m2 LVOT Diam: 1.90 3.0+(-)1.3 cm 2D Systolic Function EF 4C: 59.80 >55% EF 2C: 59.90 >55% EF BiP: 59.80 >55% Mitral Valve MV Pk E: 0.57 MV PK A: 0.89 MV Decel Time: 231.00 E/A: 0.60 E'Lateral: 5.77 E'Medial: 5.66 E/E' Med: 10.00 E/E' Lat: 9.80 PHT: 68.00 MVA PHT: 3.24 Decel [place]: 2.45 Aortic Valve AoV Pk Raphael: 2.08 AoV Mn Raphael: 1.30 AoV VTI: 0.31 AoV Pk Grad: 17.00 Aov Mn Grad: 8.00 MERRILL Cont.VTI: 1.45 LVOT LVOT Pk Raphael: 0.92 LVOT Mn Raphael: 0.57 LVOT VTI: 0.17 LVOT Pk Grad: 3.00 LVOT Mn Grad: 2.00 LVOT Diam: 1.90 LVOT Area: 2.84 Diastolic Function MV Pk E: 0.57 MV Pk A: 0.89 E/A: 0.60 E'Medial: 5.66 E/E' Med: 10.00 E' Laterial: 5.77 E/E' Lat: 9.80 Right Ventricle TAPSE (mm): 13.80 TVS' Raphael: 11.30 Tricuspid Valve TR Pk Raphael: 2.88 TR Pk Grad: 33.00 RA Press: 3.00 RVSP: 36.00 Great Vessels Aorta Sinus of Valsalva: 2.60 2.0-3.5 cm Ao Asc: 2.50 2.1-3.4 cm Pulmonary Valve PV Pk Raphael: 1.21 Peak PV Grad: 6.00 Updated in Other Vendor System with Status of Final Mauro Dewey MD electronically signed on 02/18/2023 12:11:44 PM with status of Final
[2023-02-17 07:07] LABS: MANUAL DIFF FLAG NO
[2023-02-17 07:11] LABS: Basophils Absolute Auto 0.1 X10*3/uL (0.0-0.2); Basophils Percent Auto 0.8 % (0-2); Eosinophils Absolute Auto 0.1 X10*3/uL (0.0-0.4); Eosinophils Percent Auto 1.8 % (0-4); Hematocrit 34.3 % (37.0-47.0); Hemoglobin 10.8 g/dl (12.0-16.0); Imm Gran Abs Auto 0.02 X10*3/uL (0.00-0.03); Imm Gran Pct Auto 0.3 % (0.0-0.4); Lymphocytes Absolute Auto 1.3 X10*3/uL (1.2-4.9); Lymphocytes Percent Auto 16.8 % (20-40); Mean Corpuscular HGB Conc 31.5 g/dl (31.0-35.0); Mean Corpuscular Hemoglobin 27.6 pg (27.0-33.0); Mean Corpuscular Volume 87.5 fL (80.0-98.0); Mean Platelet Volume 10.9 fL (9.4-12.3); Monocytes Absolute Auto 0.9 X10*3/uL (0.1-1.2); Monocytes Percent Auto 11.5 % (2-11); Neutrophils Absolute Auto 5.4 x10*3/uL (2.0-8.3); Neutrophils Percent Auto 68.8 % (45-73); Platelet Count 300 X10*3/uL (160-400); Red Blood Count 3.92 X10*6/uL (4.20-5.50); Red Cell Distribution Width 13.2 % (11.0-16.0); White Blood Count 7.9 X10*3/uL (4.8-10.8)
[2023-02-17 07:12] VITALS: BP 142/63; PULSE 85; RESP 20; TEMP 37.1; O2SAT 98
[2023-02-17] MEDS: 0.9 % Sodium Chloride 1,000 ML 80 ML IVCONT ×2 (07:28→18:40)
[2023-02-17 07:37] LABS: Anion Gap 13 (12-20); Blood Urea Nitrogen 23 mg/dL (9-16); Calcium 9.5 mg/dL (8.4-10.2); Carbon Dioxide 30 mmol/L (22-29); Chloride 99 mmol/L (96-108); Creatinine Clr Calc Pharmacy 24.7; Estimated Glomerular Filt Rate > 60; Glucose Random 124 mg/dL (60-115); Magnesium 1.7 mg/dL (1.6-2.6); Potassium 2.8 mmol/L (3.3-5.1); Sodium 139 mmol/L (135-145)
[2023-02-17] MEDS: Multivitamin TABLET 1 TAB PO (08:50)
--- NOTE | 2023-02-17 09:40 | HO.PM.IMPN ---
Subjective Subjective Date of Service: 02/17/23 Interval History: f/u on falls, orthostatic hypotension, syncope, some agitation overnight but better now Physical Exam Vital Signs: Vital Signs: Last Vital Signs Temp 98.8 F 02/17/23 07:12 Pulse 85 02/17/23 07:12 Resp 20 02/17/23 07:12 BP 142/63 H 02/17/23 07:12 Pulse Ox 98 02/17/23 07:12 O2 Del Method Room Air 02/17/23 07:12 BMI result Body Mass Index 13.3 Objective Data Active Medications Acetaminophen (Acetaminophen 325 Mg Tablet) 650 mg PO Q6H PRN PRN Reason: Pain, Mild (Pain Scale 1-3) Docusate Sodium (Docusate Sodium 100 Mg Capsule) 100 mg PO DAILY PRN PRN Reason: Constipation Last Admin: 02/16/23 18:51 Dose: 100 mg Documented By: TITO Enoxaparin Sodium (Enoxaparin Sodium 30 Mg/0.3 Ml Syringe) 30 mg SUBCUT Q24H [facility] Last Admin: 02/16/23 18:28 Dose: 30 mg Documented By: TITO Sodium Chloride (Ns) 1,000 mls @ 80 mls/hr IVCONT .[id number] [facility] Last Admin: 02/17/23 07:28 Dose: 80 mls/hr Documented By: GOLDIE Memantine (Memantine Hcl 10 Mg Tablet) 10 mg PO BID@0600,1800 [facility] Last Admin: 02/17/23 05:59 Dose: 10 mg Documented By: IRA Multivitamins/Vitamin C (Multivitamin Tablet) 1 tab PO DAILY [facility] Last Admin: 02/17/23 08:50 Dose: 1 tab Documented By: GOLDIE Ondansetron HCl (Ondansetron Hcl 4 Mg/2 Ml Vial) 4 mg IVPUSH Q8H PRN PRN Reason: Nausea and Vomiting Sodium Chloride (0.9 % Sodium Chloride Flush 3 Ml Syringe) 3 ml IVFLUSH QSHIFT [facility] Last Admin: 02/17/23 08:40 Dose: Not Given Documented By: GOLDIE Non-Admin Reason: IV Running Labs 02/17/23 07:04 02/17/23 07:04 Labs: Laboratory Results - last 24 hr 02/16/23 02/16/23 02/16/23 14:06 14:06 14:06 MCV MCH MCHC RDW Plt Count MPV Immature Gran % (Auto) Neut % (Auto) Lymph % (Auto) [place] % (Auto) Eos % (Auto) Baso % (Auto) Lymph # (Auto) [place] # (Auto) Eos # (Auto) Baso # (Auto) Abs Immat Gran (auto) Absolute Neuts (auto) Absolute Nucleated RBC Nucleated RBC % (auto) Anion Gap 16 18 Estim Creat Clear Calc 17.5 17.3 Estimated GFR 41 40 Random Glucose 120 H 121 H Calcium 11.1 H D 10.9 H Magnesium Total Bilirubin 0.5 AST 25 ALT 20 Alkaline Phosphatase 119 H Troponin I High Sens 92.3 H* Total Protein 7.8 Albumin 4.5 TSH 02/16/23 02/16/23 02/16/23 14:06 16:52 16:52 MCV 87.0 MCH 27.8 MCHC 31.9 RDW 13.1 Plt Count 349 D MPV 10.7 Immature Gran % (Auto) 0.4 Neut % (Auto) 81.6 H Lymph % (Auto) 9.[address] [place] % (Auto) 7.5 Eos % (Auto) 0.6 Baso % (Auto) 0.6 Lymph # (Auto) 0.[address] [place] # (Auto) 0.7 Eos # (Auto) 0.1 Baso # (Auto) 0.1 Abs Immat Gran (auto) 0.04 H Absolute Neuts (auto) 7.8 Absolute Nucleated RBC 0.000 Nucleated RBC % (auto) 0.0 Anion Gap Estim Creat Clear Calc Estimated GFR Random Glucose Calcium Magnesium Total Bilirubin AST ALT Alkaline Phosphatase Troponin I High Sens 109.6 H* Total Protein Albumin TSH 0.79 02/17/23 02/17/23 07:04 07:04 MCV 87.5 MCH 27.6 MCHC 31.5 RDW 13.2 Plt Count 300 MPV 10.9 Immature Gran % (Auto) 0.3 Neut % (Auto) 68.8 Lymph % (Auto) 16.[address] [place] % (Auto) 11.5 H Eos % (Auto) 1.8 Baso % (Auto) 0.8 Lymph # (Auto) 1.3 [place] # (Auto) 0.9 Eos # (Auto) 0.1 Baso # (Auto) 0.1 Abs Immat Gran (auto) 0.02 Absolute Neuts (auto) 5.4 Absolute Nucleated RBC 0.000 Nucleated RBC % (auto) 0.0 Anion Gap 13 Estim Creat Clear Calc 24.7 Estimated GFR > 60 Random Glucose 124 H Calcium 9.5 D Magnesium 1.7 Total Bilirubin AST ALT Alkaline Phosphatase Troponin I High Sens Total Protein Albumin TSH Assessment and Plan (1) Orthostatic hypotension: Status: Acute (2) Syncope: Status: Acute (3) Elevated troponin: Status: Acute (4) Hypercalcemia: Status: Acute Plan 82-year-old female with history of hypertension, Alzheimer's dementia here with orthostatic hypOtension related syncope/falls #recurrent orthostatic syncope--I agree with stopping HCTZ, hydrate and repeat ortho vitals. Further work up with echo, tele monitoring and cardiology evaluation, should be assisted in getting up. #Elevated troponin -Initial 92.3, repeat pending -EKG nonischemic, cardiology to comment on this HypOkalemia--likely from dietary insuficiency, replace with oral potassium #HTN--SBParound 140s, acceptable, would lowering to normal range. SBP 140s to 160, acceptable in this scenario #Alzheimer's dementia, watch for agiation -continue namenda #Severe malnutrition -Nutrition consult -Ensures TID DVT prophylaxis- renally adjusted lovenox DNR/DNI Will discuss with family Time Spent With Patient Time: Total time managing care of this patient today ____ minutes. Quality Stroke Does the patient have a stroke diagnosis?: No VTE Prior VTE?: No VTE Risk Level:: Medical - moderate - high VTE Device Contraindication: Treatment Not Indicated VTE Drug Contraindication: N/A - Med Ordered
[2023-02-17] MEDS: Potassium Chloride Packet 20 MEQ PACKET 40 MEQ PO ×2 (11:03→20:20)
--- NOTE | 2023-02-17 11:24 | P.CNNE_ITS ---
History of Present Illness Data of Consult Service Date: 02/17/23 Primary Care Provider: Raz Martell MD HPI Reason for consult: Syncope 82 years old woman with probably moderate to severe at Alzheimer dementia and hypertension usually manage with multiple medicines. Recently she has lost about 15 lb weight. She had been falling and was noted to drop her blood pressure sometime from 200 systolic to 90 systolic. Her daughter was a nurse in taking the blood pressure. She had sustained multiple injuries it is resulting from falls. When I saw her she was very drowsy and sleeping and unable to provide any meaningful history. Review of Systems Review of Systems: Could not be done with [facility] Past Medical History Medical History Alzheimer disease Fracture of left hip Hypertension Family History Family History Father CAD (coronary artery disease) Mother No problems noted. Sister Breast cancer Maternal Grandmother No problems noted. Maternal Grandfather No problems noted. Paternal Grandmother No problems noted. Paternal Grandfather No problems noted. Surgical History Surgical History History of tonsillectomy History of total abdominal hysterectomy and bilateral salpingo-oophorectomy Social History Social History Household Members: Unknown / Unable to assess Housing: Unknown / Unable to assess Do you presently have visiting nurse or other home services: No Unable to assess alcohol history related to: Refusing to respond Alcohol intake: unknown Patient Tobacco Use Status: Tobacco use Unknown Tobacco use type: Cigarette Smoked in Last 30 Days: No e-Cigarette/Vaping Use: Never Used Second Hand Smoke Exposure: No Use of substances other than those prescribed or required for medical reasons: No Currently Displaying Signs/Symptoms of Drug Intoxication Withdrawal: No Have you been hit, kicked, punched, or otherwise hurt by someone within the past year? If so, by whom?: No Do you feel safe in your current relationship?: Yes Is there a partner from a previous relationship who is making you feel unsafe now?: No Are you made to feel afraid or neglected: No Advance Directives: Yes Advance Directives on File: Yes Advance Directives Date on File: 07/01/22 Do you have thoughts of harming others: None Do you have a plan to hurt others: No Plan Nutrition Risks: Poor intake 0-25% >4 days Patient : No service: No Current occupational status: retired Cognitive needs: No Hearing needs: No Vision needs: Yes (glasses) Meds Allergies Allergy/AdvReac Type Severity Reaction Status Date / Time No Known Allergies Allergy Verified 02/16/23 13:23 Active Medications: Current Medications Acetaminophen (Acetaminophen 325 Mg Tablet) 650 mg PO Q6H PRN PRN Reason: Pain, Mild (Pain Scale 1-3) Docusate Sodium (Docusate Sodium 100 Mg Capsule) 100 mg PO DAILY PRN PRN Reason: Constipation Last Admin: 02/16/23 18:51 Dose: 100 mg Enoxaparin Sodium (Enoxaparin Sodium 30 Mg/0.3 Ml Syringe) 30 mg SUBCUT Q24H [facility] Last Admin: 02/16/23 18:28 Dose: 30 mg Sodium Chloride (Ns) 1,000 mls @ 80 mls/hr IVCONT .[id number] [facility] Last Admin: 02/17/23 07:28 Dose: 80 mls/hr Memantine (Memantine Hcl 10 Mg Tablet) 10 mg PO BID@0600,1800 [facility] Last Admin: 02/17/23 05:59 Dose: 10 mg Multivitamins/Vitamin C (Multivitamin Tablet) 1 tab PO DAILY [facility] Last Admin: 02/17/23 08:50 Dose: 1 tab Ondansetron HCl (Ondansetron Hcl 4 Mg/2 Ml Vial) 4 mg IVPUSH Q8H PRN PRN Reason: Nausea and Vomiting Potassium Chloride (Potassium Chloride Packet 20 Meq Packet) 40 meq PO BID [facility] Last Admin: 02/17/23 11:03 Dose: 40 meq Sodium Chloride (0.9 % Sodium Chloride Flush 3 Ml Syringe) 3 ml IVFLUSH QSHIFT [facility] Last Admin: 02/17/23 08:40 Dose: Not Given Home Medications Medication Instructions Recorded Confirmed Last Taken Type docusate sodium 100 mg capsule 100 mg PO DAILY PRN Constipation 02/16/23 02/16/23 Unknown History (Colace) memantine 10 mg tablet 10 mg PO BID 02/16/23 02/16/23 02/16/23 09:00 History multivitamin 1 tab PO DAILY 02/16/23 02/16/23 02/16/23 09:00 History Physical Exam Vital Signs: Vital Signs: Last Vital Signs Temp 98.8 F 02/17/23 07:12 Pulse 85 02/17/23 07:12 Resp 20 02/17/23 07:12 BP 142/63 H 02/17/23 07:12 Pulse Ox 98 02/17/23 07:12 O2 Del Method Room Air 02/17/23 07:12 BMI result Body Mass Index 13.3 Neuro: Other: very drowsy and sleepy. I was able to wake her up. She made brief eye contact mumble something. When I asked her who was in her room she stated something but I could not figure it out. She went back to sleep. Face was symmetrical. There was no obvious focal arm or leg weakness. There was significant muscle atrophy in arms and legs with a areflexia. Results Labs 02/17/23 07:04 02/17/23 07:04 Labs: Short CBC 02/16/23 02/17/23 Range/Units 14:06 07:04 WBC 9.6 7.9 (4.8-10.8) X10*3/uL Hgb 12.6 D 10.8 L (12.0-16.0) g/dl Hct 39.5 D 34.3 L (37.0-47.0) % Plt Count 349 D 300 (160-400) X10*3/uL BMP 02/16/23 02/16/23 02/17/23 14:06 14:06 07:04 Sodium 140 141 139 Potassium 3.5 3.5 2.8 L Chloride 94 L 94 L 99 Carbon Dioxide 34 H 33 H 30 H BUN 30 H 30 H 23 H Creatinine 1.24 1.26 0.88 Calcium 11.1 H D 10.9 H 9.5 D Liver Function 02/16/23 Range/Units 14:06 Total Bilirubin 0.5 (0.0-1.0) mg/dL AST 25 (5-31) U/L ALT 20 (0-31) U/L Alkaline Phosphatase 119 H (39-117) U/L Albumin 4.5 (3.5-5.0) g/dL Head CT revealed moderately severe diffuse cerebral atrophy and moderately severe microvascular ischemic changes Assessment and Plan (1) Orthostatic hypotension: Status: Acute orthostatic hypotension probably resulting in falls in a patient who probably has underlying moderate to severe multifactorial (Alzheimer +vascular ) dementia. She has lost significant weight recently. Baseline, she was taking metoprolol, amlodipine, and hydrochlorothiazide, which was significant medicine in her age and with weight loss. Plus, her laboratory suggested that she was somewhat dry when she arrived. Somewhat autonomic dysfunction is expected in a patient with this agent at [facility]. Mainstay of management at this time is elimination of most of blood pressure medicines, tolerating relatively high normal blood pressure, as low blood pressure would be more risky for her. Appropriate place of residence is required to avoid any risks of falling at home Time Spent With Patient Time: Total time managing care of this patient today ____ minutes. Procedures Date of Service Date of Service: 02/17/23
[2023-02-17 11:36] VITALS: BP 136/63; PULSE 118; RESP 20; TEMP 36.8; O2SAT 98
[2023-02-17 12:41] VITALS: BMI 13.3
--- NOTE | 2023-02-17 12:42 | P.CONCA_ITS ---
History of Present Illness History of Present Illness Date of Service: 02/17/23 Chief complaint: syncope, orthostatic hypotension. Narrative: 82-year-old female who is presenting with syncope and orthostasis. She is on hydrochlorothiazide and has hypokalemia. She has cognitive issues 2. She was quite sleepy at the time of interview. The gave most history. He said that she does not eat and drink well and has lost 10 lb recently. She has no other issues currently. She was noticed to be orthostatic and hydrochlorothiazide were stopped. She has been given IV fluids. [facility] Past Medical History Medical History Alzheimer disease Fracture of left hip Hypertension Family History Family History Father CAD (coronary artery disease) Mother No problems noted. Sister Breast cancer Maternal Grandmother No problems noted. Maternal Grandfather No problems noted. Paternal Grandmother No problems noted. Paternal Grandfather No problems noted. Surgical History Surgical History History of tonsillectomy History of total abdominal hysterectomy and bilateral salpingo-oophorectomy Social History Social History Household Members: Unknown / Unable to assess Housing: Unknown / Unable to assess Do you presently have visiting nurse or other home services: No Unable to assess alcohol history related to: Refusing to respond Alcohol intake: unknown Patient Tobacco Use Status: Tobacco use Unknown Tobacco use type: Cigarette Smoked in Last 30 Days: No e-Cigarette/Vaping Use: Never Used Second Hand Smoke Exposure: No Use of substances other than those prescribed or required for medical reasons: No Currently Displaying Signs/Symptoms of Drug Intoxication Withdrawal: No Have you been hit, kicked, punched, or otherwise hurt by someone within the past year? If so, by whom?: No Do you feel safe in your current relationship?: Yes Is there a partner from a previous relationship who is making you feel unsafe now?: No Are you made to feel afraid or neglected: No Advance Directives: Yes Advance Directives on File: Yes Advance Directives Date on File: 07/01/22 Do you have thoughts of harming others: None Do you have a plan to hurt others: No Plan Nutrition Risks: Poor intake 0-25% >4 days Patient : No service: No Current occupational status: retired Cognitive needs: No Hearing needs: No Vision needs: Yes (glasses) Meds Allergies Allergy/AdvReac Type Severity Reaction Status Date / Time No Known Allergies Allergy Verified 02/16/23 13:23 Active Medications: Current Medications Acetaminophen (Acetaminophen 325 Mg Tablet) 650 mg PO Q6H PRN PRN Reason: Pain, Mild (Pain Scale 1-3) Docusate Sodium (Docusate Sodium 100 Mg Capsule) 100 mg PO DAILY PRN PRN Reason: Constipation Last Admin: 02/16/23 18:51 Dose: 100 mg Enoxaparin Sodium (Enoxaparin Sodium 30 Mg/0.3 Ml Syringe) 30 mg SUBCUT Q24H [facility] Last Admin: 02/16/23 18:28 Dose: 30 mg Sodium Chloride (Ns) 1,000 mls @ 80 mls/hr IVCONT .[id number] [facility] Last Admin: 02/17/23 07:28 Dose: 80 mls/hr Memantine (Memantine Hcl 10 Mg Tablet) 10 mg PO BID@0600,1800 [facility] Last Admin: 02/17/23 05:59 Dose: 10 mg Multivitamins/Vitamin C (Multivitamin Tablet) 1 tab PO DAILY [facility] Last Admin: 02/17/23 08:50 Dose: 1 tab Ondansetron HCl (Ondansetron Hcl 4 Mg/2 Ml Vial) 4 mg IVPUSH Q8H PRN PRN Reason: Nausea and Vomiting Potassium Chloride (Potassium Chloride Packet 20 Meq Packet) 40 meq PO BID [facility] Last Admin: 02/17/23 11:03 Dose: 40 meq Sodium Chloride (0.9 % Sodium Chloride Flush 3 Ml Syringe) 3 ml IVFLUSH QSHIFT [facility] Last Admin: 02/17/23 08:40 Dose: Not Given Home Medications Medication Instructions Recorded Confirmed Last Taken Type docusate sodium 100 mg capsule 100 mg PO DAILY PRN Constipation 02/16/23 02/16/23 Unknown History (Colace) memantine 10 mg tablet 10 mg PO BID 02/16/23 02/16/23 02/16/23 09:00 History multivitamin 1 tab PO DAILY 02/16/23 02/16/23 02/16/23 09:00 History Physical Exam Vital Signs: Vital Signs: Last Vital Signs Temp 98.3 F 02/17/23 11:36 Pulse 118 H 02/17/23 11:36 Resp 20 02/17/23 11:36 BP 136/63 02/17/23 11:36 Pulse Ox 98 02/17/23 11:36 O2 Del Method Room Air 02/17/23 11:36 BMI result Body Mass Index 13.3 GENERAL APPEARANCE: in no acute distress, Sleeping. NECK: no carotid bruit, no jugular venous distention. SKIN: no suspicious lesions, warm and dry. HEART: no murmurs, regular rate and rhythm. LUNGS: clear to auscultation bilaterally. ABDOMEN: soft, nontender. EXTREMITIES: no edema. PERIPHERAL PULSES: equal. NEUROLOGIC: No gross deficits, AAO X 3 Objective Labs and Meds 02/17/23 07:04 02/17/23 07:04 Lab results: Laboratory Results - last 24 hr 02/16/23 02/16/23 02/16/23 14:06 14:06 14:06 WBC RBC Hgb Hct MCV MCH MCHC RDW Plt Count MPV Immature Gran % (Auto) Neut % (Auto) Lymph % (Auto) [place] % (Auto) Eos % (Auto) Baso % (Auto) Lymph # (Auto) [place] # (Auto) Eos # (Auto) Baso # (Auto) Abs Immat Gran (auto) Absolute Neuts (auto) Absolute Nucleated RBC Nucleated RBC % (auto) Sodium 140 141 Potassium 3.5 3.5 Chloride 94 L 94 L Carbon Dioxide 34 H 33 H Anion Gap 16 18 BUN 30 H 30 H Creatinine 1.24 1.26 Estim Creat Clear Calc 17.5 17.3 Estimated GFR 41 40 Random Glucose 120 H 121 H Calcium 11.1 H D 10.9 H Magnesium Total Bilirubin 0.5 AST 25 ALT 20 Alkaline Phosphatase 119 H Troponin I High Sens 92.3 H* Total Protein 7.8 Albumin 4.5 TSH 02/16/23 02/16/23 02/16/23 14:06 16:52 16:52 WBC 9.6 RBC 4.54 D Hgb 12.6 D Hct 39.5 D MCV 87.0 MCH 27.8 MCHC 31.9 RDW 13.1 Plt Count 349 D MPV 10.7 Immature Gran % (Auto) 0.4 Neut % (Auto) 81.6 H Lymph % (Auto) 9.3 L [place] % (Auto) 7.5 Eos % (Auto) 0.6 Baso % (Auto) 0.6 Lymph # (Auto) 0.9 L [place] # (Auto) 0.7 Eos # (Auto) 0.1 Baso # (Auto) 0.1 Abs Immat Gran (auto) 0.04 H Absolute Neuts (auto) 7.8 Absolute Nucleated RBC 0.000 Nucleated RBC % (auto) 0.0 Sodium Potassium Chloride Carbon Dioxide Anion Gap BUN Creatinine Estim Creat Clear Calc Estimated GFR Random Glucose Calcium Magnesium Total Bilirubin AST ALT Alkaline Phosphatase Troponin I High Sens 109.6 H* Total Protein Albumin TSH 0.79 02/17/23 02/17/23 07:04 07:04 WBC 7.9 RBC 3.92 L Hgb 10.8 L Hct 34.3 L MCV 87.5 MCH 27.6 MCHC 31.5 RDW 13.2 Plt Count 300 MPV 10.9 Immature Gran % (Auto) 0.3 Neut % (Auto) 68.8 Lymph % (Auto) 16.8 L [place] % (Auto) 11.5 H Eos % (Auto) 1.8 Baso % (Auto) 0.8 Lymph # (Auto) 1.3 [place] # (Auto) 0.9 Eos # (Auto) 0.1 Baso # (Auto) 0.1 Abs Immat Gran (auto) 0.02 Absolute Neuts (auto) 5.4 Absolute Nucleated RBC 0.000 Nucleated RBC % (auto) 0.0 Sodium 139 Potassium 2.8 L Chloride 99 Carbon Dioxide 30 H Anion Gap 13 BUN 23 H Creatinine 0.88 Estim Creat Clear Calc 24.7 Estimated GFR > 60 Random Glucose 124 H Calcium 9.5 D Magnesium 1.7 Total Bilirubin AST ALT Alkaline Phosphatase Troponin I High Sens Total Protein Albumin TSH Imaging Radiologist's impression: Impressions Chest X-Ray 02/16/23 14:00 FINDINGS/IMPRESSION: There is no acute radiographic finding. There has been no significant radiographic change compared with June 25, 2022. No focal infiltrate, effusion, pneumothorax is seen. The heart appears normal in size. The aorta is mildly atherosclerotic. There are mild degenerative changes of the spine, with S-shaped spinal curvature. Assessment and Plan (1) Orthostatic hypotension: Status: Acute (2) Syncope: Status: Acute Plan 82 female with syncope and orthostasis. Agree with holding HCTZ and hydration. Recheck orthostatics after hydration. Mild troponin elevation - likely type 2. We will follow along. Time Spent With Patient Time: Total time managing care of this patient today ____ minutes. Procedures Date of Service Date of Service: 02/17/23
--- NOTE | 2023-02-17 12:47 | MHC.CLN ---
PT IS SEVERELY MALNOURISHED PT WITH MODERATELY DEPLETED SUBCUTANEOUS FAT AND MUSCLE MASS WITH BMI 13 WITH 15% SIGNIFICANT WT LOSS X 6 MONTHS DIET RX: REGULAR-APPROPRIATE RECOMMEND ADDING THRIVE ICE CREAM AND ENSURE SUPPLEMENT TO INCREASE KCALS PT MAY BE AT RISK FOR RE-FEEDING SYNDROME MONITOR PO INTAKE AND LYTES (K+, MG, AND PHOS) CLOSELY SEE ALSO FULL CLINICAL NUTRITION ASSESSMENT
[2023-02-17 13:47] LABS: Glucose, Whole Blood 145 mg/dL (60-115)
[2023-02-17 15:03] VITALS: BP 188/90; PULSE 119; RESP 20; TEMP 37.5; O2SAT 98
--- NOTE | 2023-02-17 15:05 | MHC.CM.PN ---
NIKITA 02/17/23 DELIVERED TO DTR NATALIE ANABELA ( IS A [employer] EMPLOYEE)AT BEDSIDE, EMR REVIEWED, PT W/DEMENTIA ORIENTED TO SELF/FAMILY UNABLE TO PARTICIPATE IN ASSESSMENT, DTR NATALIE ANSWERED ALL QUESTIONS, PER NATALIE PT AMBULATES W/ASSISTIVE DEVICE, WAS USING WALKER AFTER HIP SURGERY BUT NO LONGER USES IT, PT ALSO HAS GRAB BARS IN BR/STAIRS. PT HAS NO CURRENT SERVICES, CM DISCUSSED [facility] AND [facility] HOWEVER NATALIE REPORTS PT'S DOES NOT FEEL NEED FOR HOME HEALTH SERVICES HOWEVER NATALIE BELIEVES THEY WOULD BE OPEN TO HOME PT IF NEEDED, REFERRAL TO [facility] PLACED. FAMILY WOULD NOT BE AGREEABLE TO STR PLACEMENT AND WOULD PREFER HER TO HAVE A SHORT HOSPITAL STAY DUE TO PT DOING BETTER IN HER HOME ENVIRONMENT. NATALIE VERIFIES PT'S PCP IS JARROD GUTIERREZ AND HCP VERIFIED AND ON FILE FROM PREVIOUS ADMIT. ANTIC D/C OVER W/E HOME NO SERVICES VS HOME PT
[2023-02-17] MEDS: Enoxaparin Sodium 30 MG/0.3 ML SYRINGE SUBCUT (17:48)
[2023-02-17 19:04] VITALS: BP 167/78; PULSE 112; RESP 20; TEMP 36.8; O2SAT 96
[2023-02-17] MEDS: Acetaminophen 325 MG TABLET 650 MG PO (20:20)
[2023-02-17] MEDS: 0.9 % Sodium Chloride Flush 3 ML SYRINGE IVFLUSH (20:25)
[2023-02-18] VITALS (10 sets, daily range): BP systolic 116–199; BP diastolic 56–92; PULSE 95–135; RESP 14–20; TEMP 36.1–37.2; O2SAT 96–99
[2023-02-18] MEDS: Memantine HCl 10 MG TABLET PO ×2 (05:33→17:24)
[2023-02-18] MEDS: 0.9 % Sodium Chloride 1,000 ML 80 ML IVCONT (08:40)
[2023-02-18] MEDS: Potassium Chloride Packet 20 MEQ PACKET 40 MEQ PO ×2 (08:47→20:45)
[2023-02-18] MEDS: Multivitamin TABLET 1 TAB PO (08:48)
--- NOTE | 2023-02-18 12:22 | HO.PM.IMPN ---
Subjective Subjective Date of Service: 02/18/23 Interval History: Orthostatic BP numbers are better, but she still passed out going to the bathroom and luckily there was an assistance with her Physical Exam Vital Signs: Vital Signs: Last Vital Signs Temp 97.1 F 02/18/23 07:31 Pulse 112 H 02/18/23 11:15 Resp 17 02/18/23 07:31 BP 116/57 L 02/18/23 11:15 Pulse Ox 97 02/18/23 11:15 O2 Del Method Room Air 02/18/23 07:31 BMI result Body Mass Index 13.3 Objective Data Active Medications Acetaminophen (Acetaminophen 325 Mg Tablet) 650 mg PO Q6H PRN PRN Reason: Pain, Mild (Pain Scale 1-3) Last Admin: 02/17/23 20:20 Dose: 650 mg Documented By: GUI Docusate Sodium (Docusate Sodium 100 Mg Capsule) 100 mg PO DAILY PRN PRN Reason: Constipation Last Admin: 02/16/23 18:51 Dose: 100 mg Documented By: TITO Enoxaparin Sodium (Enoxaparin Sodium 30 Mg/0.3 Ml Syringe) 30 mg SUBCUT Q24H [facility] Last Admin: 02/17/23 17:48 Dose: 30 mg Documented By: GOLDIE Sodium Chloride (Ns) 1,000 mls @ 80 mls/hr IVCONT .[id number] [facility] Last Admin: 02/18/23 08:40 Dose: 80 mls/hr Documented By: DAVID Memantine (Memantine Hcl 10 Mg Tablet) 10 mg PO BID@0600,1800 [facility] Last Admin: 02/18/23 05:33 Dose: 10 mg Documented By: GUI Multivitamins/Vitamin C (Multivitamin Tablet) 1 tab PO DAILY [facility] Last Admin: 02/18/23 08:48 Dose: 1 tab Documented By: DAVID Ondansetron HCl (Ondansetron Hcl 4 Mg/2 Ml Vial) 4 mg IVPUSH Q8H PRN PRN Reason: Nausea and Vomiting Potassium Chloride (Potassium Chloride Packet 20 Meq Packet) 40 meq PO BID [facility] Last Admin: 02/18/23 08:47 Dose: 40 meq Documented By: DAVID Sodium Chloride (0.9 % Sodium Chloride Flush 3 Ml Syringe) 3 ml IVFLUSH QSHIFT [facility] Last Admin: 02/18/23 08:41 Dose: Not Given Documented By: DAVID Non-Admin Reason: No Insulin Coverage Labs 02/17/23 07:04 02/17/23 07:04 Labs: Laboratory Results - last 24 hr 02/17/23 13:28 POC Glucose 145 H Assessment and Plan (1) Orthostatic hypotension: Status: Acute (2) Syncope: Status: Acute (3) Elevated troponin: Status: Acute (4) Hypercalcemia: Status: Acute Plan 82-year-old female with history of hypertension, Alzheimer's dementia here with orthostatic hypOtension related syncope/falls #recurrent orthostatic syncope. Stopped HCTZ, continue to hydrate, echo normal EF, cardiology input noted, will continue to closely monitor and should be assisted when she gets up to prevent falls. #Elevated troponin -Initial 92.3, repeat pending -EKG nonischemic, cardiology recommends no further testing HypOkalemia--likely from dietary insuficiency, replace with oral potassium #HTN--Labile blood pressure, but will tend to keep on higher side #Alzheimer's dementia, watch for agiation -continue namenda #Severe malnutrition -Nutrition consult -Ensures TID DVT prophylaxis- renally adjusted lovenox DNR/DNI Will discuss with family Time Spent With Patient Time: Total time managing care of this patient today ____ minutes. Quality Stroke Does the patient have a stroke diagnosis?: No VTE Prior VTE?: No VTE Risk Level:: Medical - moderate - high VTE Device Contraindication: Treatment Not Indicated VTE Drug Contraindication: N/A - Med Ordered
[2023-02-18] MEDS: Enoxaparin Sodium 30 MG/0.3 ML SYRINGE SUBCUT (15:48)
[2023-02-18] MEDS: Docusate Sodium 100 MG CAPSULE PO (17:24)
[2023-02-18] MEDS: 0.9 % Sodium Chloride Flush 3 ML SYRINGE IVFLUSH (20:45)
[2023-02-19] MEDS: Acetaminophen 325 MG TABLET 650 MG PO (01:04)
[2023-02-19] MEDS: OLANZapine 5 MG TABLET PO (01:25)
--- NOTE | 2023-02-19 01:44 | PC.NURSE ---
Assumed care at 1900.Pt was with family at 1900. Family at bedside until visiting hours was over. 1:1 sitter assigned. Around 1Am pt gets very confused and restless. Crying and want to go home. The sitter having a hard time to keep her in bed. Pt was trying to get out of the room. High Fall Risk due to previous syncopal episode. Provider notified. Pt given PO Zyprexa- awaiting for the effectivity. Remains Sinus tach on monitor with HR 120's at times.
[2023-02-19 03:50] VITALS: BP 141/66; PULSE 104; RESP 14; TEMP 36.2; O2SAT 98
[2023-02-19] MEDS: Memantine HCl 10 MG TABLET PO (06:13)
[2023-02-19 07:42] VITALS: BP 146/71; PULSE 100; RESP 18; TEMP 36.3; O2SAT 98
[2023-02-19] MEDS: Multivitamin TABLET 1 TAB PO (07:48)
[2023-02-19] MEDS: Potassium Chloride Packet 20 MEQ PACKET 40 MEQ PO (07:48)
[2023-02-19] MEDS: 0.9 % Sodium Chloride 1,000 ML 100 ML IVCONT (07:48)
[2023-02-19 08:47] LABS: Anion Gap 11 (12-20); Blood Urea Nitrogen 30 mg/dL (9-16); Calcium 9.4 mg/dL (8.4-10.2); Carbon Dioxide 26 mmol/L (22-29); Chloride 108 mmol/L (96-108); Creatinine Clr Calc Pharmacy 25.6; Estimated Glomerular Filt Rate > 60; Glucose Random 135 mg/dL (60-115); Potassium 4.3 mmol/L (3.3-5.1); Sodium 141 mmol/L (135-145)
--- NOTE | 2023-02-19 09:28 | P.PNIM_ITS ---
Subjective Subjective Date of Service: 02/19/23 Interval History: Compare to yesterday, she much more awake alert and talkative this morning,answering questions apropriately, but here is nursing report from overnight Around 1Am pt gets very confused and restless. Crying and want to go home. The sitter having a hard time to keep her in bed. Pt was trying to get out of the room. High Fall Risk due to previous syncopal episode.? Provider notified. Pt given PO Zyprexa Physical Exam Vital Signs: Vital Signs: Last Vital Signs Temp 97.3 F 02/19/23 07:42 Pulse 100 02/19/23 07:42 Resp 18 02/19/23 07:42 BP 146/71 H 02/19/23 07:42 Pulse Ox 98 02/19/23 07:42 O2 Del Method Room Air 02/19/23 07:42 BMI result Body Mass Index 13.3 Const: Other: General: Oriented to self and aware she is not home Resp: CTA bilateral CVS: S1,S2,RRR GI: +BS, NT, no distention Skin: No rash Neuro: motor grossly intact Psych: appropriate affect Objective Data Active Medications Acetaminophen (Acetaminophen 325 Mg Tablet) 650 mg PO Q6H PRN PRN Reason: Pain, Mild (Pain Scale 1-3) Last Admin: 02/19/23 01:04 Dose: 650 mg Documented By: GUI Docusate Sodium (Docusate Sodium 100 Mg Capsule) 100 mg PO DAILY PRN PRN Reason: Constipation Last Admin: 02/18/23 17:24 Dose: 100 mg Documented By: DAVID Enoxaparin Sodium (Enoxaparin Sodium 30 Mg/0.3 Ml Syringe) 30 mg SUBCUT Q24H [facility] Last Admin: 02/18/23 15:48 Dose: 30 mg Documented By: DAVID Sodium Chloride (Ns) 1,000 mls @ 100 mls/hr IVCONT .Q10H [facility] Last Admin: 02/19/23 07:48 Dose: 100 mls/hr Documented By: DAVID Memantine (Memantine Hcl 10 Mg Tablet) 10 mg PO BID@0600,1800 [facility] Last Admin: 02/19/23 06:13 Dose: 10 mg Documented By: GUI Multivitamins/Vitamin C (Multivitamin Tablet) 1 tab PO DAILY [facility] Last Admin: 02/19/23 07:48 Dose: 1 tab Documented By: DAVID Ondansetron HCl (Ondansetron Hcl 4 Mg/2 Ml Vial) 4 mg IVPUSH Q8H PRN PRN Reason: Nausea and Vomiting Sodium Chloride (0.9 % Sodium Chloride Flush 3 Ml Syringe) 3 ml IVFLUSH QSHIFT [facility] Last Admin: 02/19/23 07:54 Dose: Not Given Documented By: DAVID Non-Admin Reason: IV Running Labs 02/17/23 07:04 02/19/23 08:22 Labs: Laboratory Results - last 24 hr 02/19/23 08:22 Anion Gap 11 L Estim Creat Clear Calc 25.6 Estimated GFR > 60 Random Glucose 135 H Calcium 9.4 Assessment and Plan (1) Orthostatic hypotension: Status: Acute (2) Syncope: Status: Acute (3) Elevated troponin: Status: Acute (4) Hypercalcemia: Status: Acute Plan 82-year-old female with history of hypertension, Alzheimer's dementia here with orthostatic hypOtension related syncope/falls #recurrent orthostatic syncope. Stopped HCTZ, continue to hydrate, echo normal EF, cardiology input noted, will continue to closely monitor and should be assisted when she gets up to prevent falls, given range of BPs her ortho w ill be challenging to manage, advise rising from sitting to standing position slowly, we can try stockings however she doesn't have much muslce mass #Elevated troponin--92 to 106, unlikely cause of above, nl echo, ecg no ischemic changes, no fruther testing advised by cardiology HypOkalemia--likely from dietary insuficiency, replaces with oral potassium, K is now 4.3 #HTN--Labile blood pressure, maybe necessary to keep BP on higher side to mitigate orthostatic hypOtension #Alzheimer's dementia, watch for agiation -continue namenda, anti-psychotics to be used sparingly #Severe malnutrition -Nutrition consult -Ensures TID DVT prophylaxis- renally adjusted lovenox DNR/DNI Will discuss with family and possibly discharge later today as she does better at home Time Spent With Patient Time: Total time managing care of this patient today ____ minutes. Quality Stroke Does the patient have a stroke diagnosis?: No VTE Prior VTE?: No VTE Risk Level:: Medical - moderate - high VTE Device Contraindication: Treatment Not Indicated VTE Drug Contraindication: N/A - Med Ordered
[2023-02-19 10:00] VITALS: BP 207/93; PULSE 86
[2023-02-19 10:05] VITALS: BP 229/96; PULSE 94
[2023-02-19 10:10] VITALS: BP 227/100; PULSE 124
[2023-02-19 11:55] VITALS: BP 123/58; PULSE 118; RESP 15; TEMP 37.1; O2SAT 98
--- NOTE | 2023-02-19 12:02 | PM.DS ---
DS: Providers Provider Date of Service: 02/19/23 Date of admission: 02/16/23 16:20 Primary care physician: Raz Martell MD Consults: 02/16/23 16:25 Consult to Neurology Routine Consulting Provider: [facility] Reason for consultation: autonomic dysfunction, recurrent syncope 02/17/23 08:12 Consult to Cardiology Routine Consulting Provider: [facility] Reason for consultation: Syncope, elevated tropomin Has provider been notified: Yes DS: Diagnosis Discharge Diagnosis (1) Orthostatic hypotension: Status: Acute (2) Syncope: Status: Acute (3) Elevated troponin: Status: Acute (4) Hypercalcemia: Status: Acute DS: Summary Hospital Course Hospital Course: Chief Complaint: syncope 82-year-old female with history of hypertension, Alzheimer's dementia presents to the ED with her and daughter for evaluation of recurrent syncope.? The patient is a poor historian secondary to her Alzheimer's dementia and her and daughter provide much history. The patient began experiencing falls back in May and again in September, both of which resulted in hip fractures requiring surgical intervention. Over the last month has been experiencing increased frequency syncopal episodes and blood pressures have been tracked on a daily basis with great fluctuation ranging from SBP 200s to 90s, varying day to day. Has been seen by PCP for symptoms and metoprolol and then amlodipine were discontinued but HCTZ was continued. The patient currently has no complaints at this time. Per family, pt has been gradually declining and has noticed significant weight loss of 10-15 pounds over the last few months, patient currently weighs 70pounds. She is eating and drinking without difficulty though does report some decreased appetite. She has been following with Dr. Samuels in neurology and has been taking namenda. She ambulated with a walker at baseline though has required reminders for this. On arrival, pt hypertensive to 206/115, tachycardic to 126, vitals otherwise stable. Orthostatic vitals taken with BP 173/96, HR 119 (laying) --> 98/60, HR 140 (sitting) --> 84/51, HR 96 (standing). Hematology studies unremarkable. Creatinine slightly above baseline at 1.26, BUN 30, Na 141, K 3.5, Cl 94, CO2 33, Ca 10.9. Initial trop 92.3, repeat pending.? Chest x-ray negative for any acute cardiopulmonary abnormality.? In the ED, given 500 mL IV NS bolus. Hospital course: Patient presented with sycope related to recurrent orthostatic syncope likely due to autonomic insuficincy and agravated by dehydration and use of HCTZ. Her management consisted IV fluid hydration, stopping HCTZ and caution with standing. Cardiac work up included mildly elevated troponin I level not due to acute ischemic event. Echocardiogram showed normal EF and no wall motion abnormalities. She was evaluated by Dr. Dewey who ritika advised stopping HCTZ and hydrating her with IVF. It is recognized that her condition is a challenge to treat given the wide variation of her bllod pressures ranging from 120s all the way 220's and can drop steeply into below 100 resulting in a syncopal episode. Overall there is some improvement, but it is very likely that she will continue to suffer from this, she is not a candiate for Midodrine or Florinef due to high supine HTN. We recommend that she stands up from sitting to standing position slowly to use a walker to ambulate and with assistance at all time, family is available to assist her. She is encourage to stay well hydrated. Elevated troponin--92 to 106, unlikely cause of? above, nl echo, ecg no ischemic changes, no fruther testing advised by cardiology HypOkalemia--likely from dietary insuficiency and use of HCTZ. This was replaced with oral potassium and level is now 4.3 and should maintain now that HCTZ is no longer taken HTN--Labile blood pressure, it is necessary to keep BP on higher side to mitigate orthostatic hypOtension Alzheimer's dementia, has periods of agitation but seem to function best in home environment Severe malnutrition--encourage to eat high protein diet and supplement with boost Time Spent with Patient Time attestation: Total time managing care of this patient today ____ minutes. Discharge coordination time: Greater than 30 minutes Quality: Safe Use of Opioids Does Pt have an Active Cancer Diagnosis on the Problem List?: No Quality: Stroke Does the patient have a stroke diagnosis?: No Physical Exam Vital Signs: Vital Signs: Last Vital Signs Temp 98.7 F 02/19/23 11:55 Pulse 118 H 02/19/23 11:55 Resp 15 02/19/23 11:55 BP 123/58 L 02/19/23 11:55 Pulse Ox 98 02/19/23 11:55 O2 Del Method Room Air 02/19/23 11:55 BMI result Body Mass Index 13.3 Const: Other: General: AO X 1, thin built, presently confused, no acute distress Resp: CTA bilateral CVS: S1,S2,RRR GI: +BS, NT, no distention Skin: No rash Neuro: motor grossly intact Psych: appropriate affect DS: Data Data Completed and Pending Completed studies during hospitalization [Text1]: Procedures Replacement of Left Hip Joint, Femoral Surface with Synthetic Substitute, Uncemented, Open Approach (06/25/22) Labs on day of discharge: Laboratory Results - last 24 hr 02/19/23 08:22 Sodium 141 Potassium 4.3 D Chloride 108 Carbon Dioxide 26 Anion Gap 11 L BUN 30 H Creatinine 0.85 Estim Creat Clear Calc 25.6 Estimated GFR > 60 Random Glucose 135 H Calcium 9.4 Discharge Plan Discharge Anticipated Discharge Date/Time: 02/19/23 14:13 Patient Disposition: Home, Self-Care Discharge Diagnosis: Orthostatic Hypotension Syncope Referrals: Raz Martell MD [Primary Care Provider] - 1 Week Discharge Medications: Continued multivitamin Tablet 1 tab PO DAILY docusate sodium [Colace] 100 mg Capsule 100 mg PO DAILY PRN (Reason: Constipation) memantine 10 mg tablet 10 mg PO BID Discontinued hydrochlorothiazide 25 mg tablet 25 mg PO DAILY Qty: 90 8RF Discharge Orders: Discharge Order (Routine); Ordered 02/19/23 Ordered By: Rafita Neff Diet: Advance to usual diet Activity on Discharge: As tolerated Stand Alone Forms: Patient Portal Discharge page Care Plan Goals: Fall prevention from orthostatic Hypotension Health Concerns: Severe Orthostatic Hypotension Dehydration low potassium Plan of Treatment: You had a fall due to orthostatic hypotension or tendency for your blood pressure to drop low when stand up causing you to loose consciousness, unfortunate there is no cure to the condition however some measures can taking to minimize the effect 1) Drink Plenty of fluid--being dehydrated will make the condition worse 2) Stop taking the Blood pressure medication Hydrochlorothiazide and be sure to make sure your doctor is aware that this medication has been stopped and caution should be taken to prescribe other blood pressure medications 3) You should have help when getting up from sitting position and this should be done slowly, if you feel dizzy, promply sit or lay down. And when walking, always use a walker. Low potassium level due to use of Hydrochlorothiazide has been corrected Dehydration has been treated with intravenous fluid and we further recommend that you drink Plenty of fluid Follow up with you Doctor in a week to 10 days, call for appointment Assessment: See above
--- NOTE | 2023-02-19 14:40 | MHC.CM.PN ---
Pt medically cleared for D/C home with family support. Pts family will transport her home.
== END 2023-02-19 14:59 | disposition home or self-care (01) ==
LOC: HO.ED 15:09 → HO.EDOVER 16:33 → HO.IMC 19:47
PROVIDERS: Admitting Provider Physician Assistant; Emergency Provider Emergency Medicine; PCP Internal Medicine; Visit Provider Internal Medicine
DX: I95.1 Orthostatic hypotension (principal); R77.8 Other specified abnormalities of plasma proteins; I10 Essential (primary) hypertension; G30.9 Alzheimer's disease, unspecified; E43 Unspecified severe protein-calorie malnutrition; E83.52 Hypercalcemia; F02.80 Dementia in other diseases classified elsewhere, unspecified severity, without behavioral disturbance, psychotic disturbance, mood disturbance, and anxiety; Z68.1 Body mass index [BMI] 19.9 or less, adult; E86.0 Dehydration; E87.6 Hypokalemia
CPT/HCPCS: 36415; 71045; 80048; 80053; 82947; 83735; 84443; 84484; 85025; 93005; 93306; 96360; 96361; 96372; 97166; 99222; 99285; J1650; Q9957

== ENCOUNTER 2023-02-16 16:20 | Outpatient (BNV) | payer MEDICARE, SELFPAY | END 2023-02-17 07:00 | PROVIDERS: Admitting Provider Physician Assistant; Emergency Provider Emergency Medicine; PCP Internal Medicine; Visit Provider Internal Medicine Cardiovascular Disease | DX: R00.0 Tachycardia, unspecified (principal); R94.31 Abnormal electrocardiogram [ECG] [EKG] | CPT/HCPCS: 93010; 93306 ==

== ENCOUNTER → 2023-02-16 16:20 | Outpatient (BNV) | payer MEDICARE, SELFPAY | PROVIDERS: Admitting Provider Physician Assistant; Emergency Provider Emergency Medicine; PCP Internal Medicine; Visit Provider Internal Medicine Cardiovascular Disease | DX: I95.1 Orthostatic hypotension (principal) | CPT/HCPCS: 93010; 99232 ==

== ENCOUNTER → 2023-02-16 16:20 | Outpatient (BNV) | payer MEDICARE, SELFPAY | PROVIDERS: Admitting Provider Physician Assistant; Emergency Provider Emergency Medicine; PCP Internal Medicine; Visit Provider Physician Assistant | DX: I95.1 Orthostatic hypotension (principal); R77.8 Other specified abnormalities of plasma proteins; E83.52 Hypercalcemia | CPT/HCPCS: 99223; 99232; 99239 ==

== ENCOUNTER 2023-03-03 14:25 | Outpatient (AMB) | payer MEDICARE, SELFPAY ==
--- NOTE | 2023-03-03 14:25 | MHC.PC.OV ---
Vital Signs 03/03/23 14:27 Height 5 ft 2 in Weight 79 lb BMI 14.4 BP 132/78 Blood Pressure Location Lt brachial Position Sitting Pulse 124 H Pulse Source Pulse Oximeter Pulse Oximetry (%) 94 Oxygen Delivery Method Room Air Intake Visit Reasons: [facility]-02/16-02/19-syncope,automonic dysfunction Intake Note: Patient is here for hospital discharge follow up. Patient was discharged from [facility] on 02/19/23. Draw Frame Operator Required: No Bottle Carrier: Present Accompanied by: Spouse Allergies No Known Allergies Allergy (Verified 03/03/23 14:26) Medication List - Last Reconciled 03/03/23 by Raz Martell MD docusate sodium (Colace) 100 mg PO DAILY PRN memantine 10 mg PO BID multivitamin 1 tab PO DAILY Tobacco use date assessed: 03/03/23 Fall risk assessment: 2 + Falls in past year Last assessed Fall Risk: 03/03/23 Dental Screening Dental Screen Date: 03/03/23 Did you have a dental visit in the last 12 months?: Yes Did you have a dental problem in the last 6 months where you did not have access to dental care?: No Was dental information given to patient?: Patient has dentist HPI [facility]-02/16-02/19-syncope,automonic dysfunction HPI Details frequent falls due to autonomic dysfunction; BP meds stopped and has resolved but BP high [facility] Medical History (Updated 02/27/23 @ 00:14 by Dolly Frost) Alzheimer disease Fracture of left hip Hypertension Surgical History (Updated 03/03/23 @ 14:31 by MICHELLE Maza) History of hip surgery History of tonsillectomy History of total abdominal hysterectomy and bilateral salpingo-oophorectomy Family History Father CAD (coronary artery disease) Mother No problems noted. Sister Breast cancer Maternal Grandmother No problems noted. Maternal Grandfather No problems noted. Paternal Grandmother No problems noted. Paternal Grandfather No problems noted. Social History (Updated 03/03/23 @ 14:32 by MICHELLE Maza) Household Members: Unknown / Unable to assess Housing: Unknown / Unable to assess Do you presently have visiting nurse or other home services: No Alcohol intake: never Patient Tobacco Use Status: Former Tobacco user Tobacco use type: Cigarette e-Cigarette/Vaping Use: Never Used Second Hand Smoke Exposure: No Advance Directives Date on File: 07/01/22 service: No Current occupational status: retired Cognitive needs: No Hearing needs: No Vision needs: Yes (glasses) Questionnaire PHQ-9 Over the last 2 weeks, how often have you been bothered by any of the following problems? Depression Screening Interpretation: Negative Source: Developed by Drs. Vijay Escobar, Nicol Kauffman, Omega Elias and colleagues, with an educational justen from [employer]. Thrive Questionnaire Date Thrive assessed: 02/17/23 Currently or been in a relationship where the following occur: no concerns reported JOSÉ LUIS-7 AMB Questionnaire JOSÉ LUIS-7 Date JOSÉ LUIS - 7 assessed: 08/26/22 Source: Developed by Drs. Vijay Escobar, Nicol Kauffman, Omega Elias and colleagues, with an educational justen from [employer]. Review of Systems Const Denies chills, Denies headache(s) and Denies weight loss ENT Denies headache(s) Card Denies chest pain, Denies syncope, Denies irregular heart rhythm and Denies dyspnea Resp Denies chest congestion, Denies cough and Denies dyspnea GI Denies abdominal pain, Denies change in stool character, Denies nausea and Denies vomiting Musc Denies deformity and Denies joint swelling Neuro Denies syncope and Denies headache(s) Physical exam (Primary Care) Vital Signs: Last Vital Signs Pulse 124 H 03/03/23 14:27 BP 132/78 03/03/23 14:27 Pulse Ox 94 03/03/23 14:27 Oxygen Delivery Method Room Air 03/03/23 14:27 BMI result Body Mass Index 14.4 Tobacco/Smoking Status: Tobacco use Status Tobacco use date assessed 03/03/23 03/03/23 14:33 Patient Tobacco Use Status Former Tobacco user 03/03/23 14:33 Tobacco use type Cigarette 03/03/23 14:33 e-Cigarette/Vaping Use Never Used 03/03/23 14:33 Depression Screening Interpretation: Negative Thrive Assessment: Date of Thrive Assessment Date Thrive assessed 02/17/23 03/03/23 14:33 Currently or been in a relationship where the following occur: no concerns reported Const General: cooperative, healthy appearing and no acute distress Orientation/consciousness: oriented to person, oriented to place and oriented to time HENMT Head: Yes normal to inspection, Yes normocephalic and Yes atraumatic Mouth: Normal oral and palatal mucosa present and tongue normal Throat: Yes posterior oropharynx normal and Yes uvula midline Eyes General: appearance normal, both eyes and all related structures Neck Neck: Yes normal visual inspection, Yes full ROM and Yes no lymphadenopathy Thyroid: Thyroid normal Carotids: normal carotid upstroke Chest Chest palpation & inspection: normal inspection of the chest Resp Effort & Inspection: normal respiratory effort and able to speak in complete sentences Auscultation: clear to auscultation bilaterally Cardio Jugular venous distension: no JVD Palpation: normal PMI Rate: regular rate Rhythm: regular rhythm Heart sounds: S1 normal heart sound present and S2 normal heart sound present GI Inspection: Yes normal to inspection Palpation (GI): Soft to palpation and No hepatosplenomegaly present Auscultation: normal bowel sounds General: Yes no CVA tenderness Back/Spine/Pelvis Back: no CVA tenderness Skin General skin exam: no rashes or lesions noted Neuro General: oriented to person, oriented to place and oriented to time Extrem General: Yes normal to inspection and Yes full ROM Assessment and Plan Assessment & Plan (1) Orthostatic hypotension: Code(s): I95.1 - Orthostatic hypotension Plan: monitor off rx Coding Level of Care Code Est Pt Level 3 (21790) Diagnoses Orthostatic hypotension I95.1
[2023-03-03 14:27] VITALS: BP 132/78; PULSE 124; O2SAT 94; BMI 14.4
== END 2023-03-03 14:59 | disposition home or self-care (01) ==
PROVIDERS: PCP Internal Medicine; Visit Provider Internal Medicine
DX: I95.1 Orthostatic hypotension (principal)
CPT/HCPCS: 99213

== ENCOUNTER 2023-04-18 11:17 | Outpatient (REF) | payer MEDICARE, SELFPAY ==
[2023-04-18 13:21] LABS: MANUAL DIFF FLAG NO
[2023-04-18 13:40] LABS: Basophils Percent Auto 0.6 % (0-2); Eosinophils Absolute Auto 0.1 X10*3/uL (0.0-0.4); Eosinophils Percent Auto 1.6 % (0-4); Hematocrit 32.7 % (37.0-47.0); Hemoglobin 9.7 g/dl (12.0-16.0); Imm Gran Abs Auto 0.02 X10*3/uL (0.00-0.03); Imm Gran Pct Auto 0.3 % (0.0-0.4); Lymphocytes Absolute Auto 1.2 X10*3/uL (1.2-4.9); Lymphocytes Percent Auto 16.4 % (20-40); Mean Corpuscular HGB Conc 29.7 g/dl (31.0-35.0); Mean Corpuscular Hemoglobin 25.4 pg (27.0-33.0); Mean Corpuscular Volume 85.6 fL (80.0-98.0); Mean Platelet Volume 12.3 fL (9.4-12.3); Monocytes Absolute Auto 0.6 X10*3/uL (0.1-1.2); Monocytes Percent Auto 8.6 % (2-11); Neutrophils Absolute Auto 5.1 x10*3/uL (2.0-8.3); Neutrophils Percent Auto 72.5 % (45-73); Platelet Count 474 X10*3/uL (160-400); Red Blood Count 3.82 X10*6/uL (4.20-5.50); Red Cell Distribution Width 13.9 % (11.0-16.0)
[2023-04-18 14:19] LABS: Alanine Aminotransferase 19 U/L (0-31); Albumin Level 4.3 g/dL (3.5-5.0); Alkaline Phosphatase 119 U/L (39-117); Anion Gap 15 (12-20); Aspartate Amino Transferase 19 U/L (5-31); Bilirubin Total 0.3 mg/dL (0.0-1.0); Blood Urea Nitrogen 34 mg/dL (9-16); Calcium 9.7 mg/dL (8.4-10.2); Carbon Dioxide 29 mmol/L (22-29); Chloride 104 mmol/L (96-108); Cholesterol 186 mg/dL (<200); Estimated Glomerular Filt Rate 54; Glucose Fasting 171 mg/dL (60-99); HDL Cholesterol 76 mg/dL (>40); LDL Cholesterol Calculated 94 mg/dL (<100); Potassium 4.2 mmol/L (3.3-5.1); Sodium 144 mmol/L (135-145); Thyroid Stimulating Hormone 1.61 uIU/mL (0.32-4.0); Total Protein 7.5 g/dL (6.5-8.0); Triglycerides 80 mg/dL (<150)
== END 2023-04-18 11:18 | disposition home or self-care (01) ==
LOC: HO.HMGCLDS 11:17
PROVIDERS: PCP Internal Medicine; Visit Provider Internal Medicine
DX: E03.9 Hypothyroidism, unspecified (principal); D64.9 Anemia, unspecified; N28.9 Disorder of kidney and ureter, unspecified; E78.5 Hyperlipidemia, unspecified
CPT/HCPCS: 36415; 80053; 80061; 84443; 85025

== ENCOUNTER 2023-04-25 12:49 | Outpatient (AMB) | payer MEDICARE, SELFPAY ==
[2023-04-25 12:52] VITALS: BP 124/64; PULSE 110; O2SAT 97; BMI 14.3
--- NOTE | 2023-04-25 12:52 | MHC.PC.OV ---
Vital Signs 04/25/23 12:52 Height 5 ft 2 in Weight 78 lb BMI 14.3 BP 124/64 Blood Pressure Location Rt brachial Position Sitting Pulse 110 H Pulse Source Pulse Oximeter Pulse Oximetry (%) 97 Oxygen Delivery Method Room Air Intake Visit Reasons: 4mth f/u Allergies No Known Allergies Allergy (Verified 04/25/23 12:52) Medication List - Last Reconciled 04/25/23 by Raz Martell MD docusate sodium (Colace) 100 mg PO DAILY PRN memantine 10 mg PO BID multivitamin 1 tab PO DAILY Tobacco use date assessed: 03/03/23 Fall risk assessment: 1 Fall in past year Last assessed Fall Risk: 04/25/23 Dental Screening Dental Screen Date: 04/25/23 Did you have a dental visit in the last 12 months?: No Did you have a dental problem in the last 6 months where you did not have access to dental care?: No Was dental information given to patient?: Patient has dentist HPI 4mth f/u HPI Details progressive dementia; family caring for her [facility] Medical History Alzheimer disease Fracture of left hip Hypertension Surgical History History of hip surgery History of total abdominal hysterectomy and bilateral salpingo-oophorectomy History of tonsillectomy Family History Father CAD (coronary artery disease) Mother No problems noted. Sister Breast cancer Maternal Grandmother No problems noted. Maternal Grandfather No problems noted. Paternal Grandmother No problems noted. Paternal Grandfather No problems noted. Social History Household Members: Unknown / Unable to assess Housing: Unknown / Unable to assess Do you presently have visiting nurse or other home services: No Alcohol intake: never Patient Tobacco Use Status: Former Tobacco user Tobacco use type: Cigarette e-Cigarette/Vaping Use: Never Used Second Hand Smoke Exposure: No Advance Directives Date on File: 07/01/22 service: No Current occupational status: retired Cognitive needs: No Hearing needs: No Vision needs: Yes (glasses) Questionnaire PHQ-9 Over the last 2 weeks, how often have you been bothered by any of the following problems? 1. Little interest or pleasure in doing things: not at all 2. Feeling down, depressed, or hopeless: not at all 3. Trouble falling or staying asleep, or sleeping too much: not at all 4. Feeling tired or having little energy: not at all 5. Poor appetite or overeating: not at all 6. Feeling bad about yourself - or that you are a failure or have let yourself or your family down: not at all 7. Trouble concentrating on things, such as reading the newspaper or watching television: not at all 8. Moving or speaking so slowly that other people could have noticed. Or the opposite - being so fidgety or restless that you have been moving around a lot more than usual: not at all 9. Thoughts that you would be better off or of hurting yourself in some way: not at all Total score: 0 Depression Screening Interpretation: Negative Source: Developed by Drs. Vijay Escobar, Nicol Kauffman, Omega Elias and colleagues, with an educational justen from [employer]. Thrive Questionnaire Date Thrive assessed: 02/17/23 JOSÉ LUIS-7 AMB Questionnaire JOSÉ LUIS-7 Date JOSÉ LUIS - 7 assessed: 08/26/22 Source: Developed by Drs. Vijay Escobar, Nicol Kauffman, Omega Elias and colleagues, with an educational justen from [employer]. Review of Systems Const Denies chills, Denies headache(s) and Denies weight loss ENT Denies headache(s) Card Denies chest pain, Denies syncope, Denies irregular heart rhythm and Denies dyspnea Resp Denies chest congestion, Denies cough and Denies dyspnea GI Denies abdominal pain, Denies change in stool character, Denies nausea and Denies vomiting Musc Denies deformity and Denies joint swelling Neuro Denies syncope and Denies headache(s) Physical exam (Primary Care) Vital Signs: Last Vital Signs Pulse 110 H 04/25/23 12:52 BP 124/64 04/25/23 12:52 Pulse Ox 97 04/25/23 12:52 Oxygen Delivery Method Room Air 04/25/23 12:52 BMI result Body Mass Index 14.3 Tobacco/Smoking Status: Tobacco use Status Tobacco use date assessed 03/03/23 04/25/23 12:53 Patient Tobacco Use Status Former Tobacco user 04/25/23 12:53 Tobacco use type Cigarette 04/25/23 12:53 e-Cigarette/Vaping Use Never Used 04/25/23 12:53 PHQ-9: PHQ-9 Score PHQ-9: Total score 0 04/25/23 13:00 Depression Screening Interpretation: Negative Thrive Assessment: Date of Thrive Assessment Date Thrive assessed 02/17/23 04/25/23 12:53 Const General: cooperative, comfortable, no acute distress and alert Neck Neck: Yes no lymphadenopathy Thyroid: Thyroid normal Resp Effort & Inspection: normal respiratory effort Auscultation: clear to auscultation bilaterally Percussion: percussion normal Cardio Jugular venous distension: no JVD Palpation: normal PMI Rate: regular rate Rhythm: regular rhythm Heart sounds: S1 normal heart sound present and S2 normal heart sound present GI Inspection: Yes normal to inspection Palpation (GI): No hepatosplenomegaly present Skin General skin exam: no rashes or lesions noted Extrem General: Yes no clubbing, cyanosis or edema Assessment and Plan Assessment & Plan (1) Cognitive decline: Code(s): R41.89 - Other symptoms and signs involving cognitive functions and awareness Plan: stable Medications: New trazodone 50 mg PO BEDTIME PRN 60 tabs 2RF sleep Coding Level of Care Code Est Pt Level 3 (94871) Diagnoses Cognitive decline R41.89
== END 2023-04-25 13:15 | disposition home or self-care (01) ==
PROVIDERS: PCP Internal Medicine; Visit Provider Internal Medicine
DX: R41.89 Other symptoms and signs involving cognitive functions and awareness (principal)
CPT/HCPCS: 99213